=== PATIENT | male | born 1945 | race Caucasian/White ===

== ENCOUNTER 2016-09-26 11:50 | Inpatient (IN) | payer OTHER ==
[2016-09-26 12:02] VITALS: BMI 22.9
[2016-09-26 12:58] LABS: BASOPHIL 1.3 % (0-2.0); EOSINOPHIL 3.6 % (0-4.5); MCH 30.8 pg (25.7-33.7); MCHC 32.5 g/dl (32.0-35.9); MEAN CELL VOLUME 94.7 fl (80-96); MEAN PLT VOLUME 7.8 fl (7.5-11.1); NEUTROPHILS 75.4 % (42.8-82.8); PLATELET COUNT 377 K/MM3 (134-434); RDW 15.7 % (11.9-15.9); WHITE BLOOD COUNT 12.1 K/mm3 (4.0-10.0)
--- NOTE | 2016-09-26 13:09 | PDOC ---
History of Present Illness - General Chief Complaint: Revisit,Radiology Variance Stated Complaint: NEPHROSTOMY TUBE Time Seen by Provider: 09/26/16 11:55 History Source: Patient, Old Records, Other (Dr. Batista) Exam Limitations: No Limitations - History of Present Illness Initial Comments: 09/26/16 13:00 71-year-old male sent over from [facility] secondary to left nephrostomy tube falling out upon awakening this morning. Patient presently with a nephrostomy tube secondary to calculi occluding left ureter pending a stent placement. Patient was admitted here last month for septic shock and was found to have an occluded left ureter requiring nephrostomy placement. Patient has no complaints presently including flank pain, nausea or fever. Patient presently with a Hooks catheter which drained from the right kidney. Timing/Duration: 4-6 hours Associated Symptoms: reports: denies symptoms Past History - Past Medical History Allergies/Adverse Reactions: Allergies Allergy/AdvReac Type Severity Reaction Status Date / Time No Known Allergies Allergy Verified 07/29/16 19:13 Home Medications: Ambulatory Orders Aspirin [Baby Aspirin] 81 mg PO DAILY 11/09/11 Atorvastatin Ca [Lipitor] 20 mg PO HS 11/09/11 Carvedilol [Coreg] 12.5 mg PO BID 11/09/11 Tamsulosin HCl [Flomax -] 0.4 mg PO BID 11/09/11 Finasteride [Proscar -] 5 mg PO DAILY 07/29/16 Tiotropium [place] [Spiriva] 1 inh PO DAILY 07/30/16 Albuterol Sulfate 0.5% [Ventolin 0.5% Nebulizing Soln. -] 1 amp NEB QIDR amp Bacitracin - [Bacitracin Topical Ointment -] 1 applic TP BID #1 applic 08/25/16 Clopidogrel Bisulfate [Plavix -] 75 mg PO ASDIR #0 08/25/16 Docusate Sodium [Colace -] 100 mg PO DAILY capsule 08/25/16 Acetaminophen [Pain Relief] 650 mg PO QID PRN 09/26/16 Clonazepam [Klonopin -] 1 mg PO BID MDD 2mg 09/26/16 Mag Hydrox/Al Hydrox/Simeth [Mylanta *Suspension*] 30 ml PO Q6H PRN 09/26/16 Piperacillin Sodium/Tazobactam [Zosyn 3.375 Gram Vial] 3.375 gm IV ASDIR Anemia: No Asthma: No Cancer: Yes Cardiac Disorders: Yes (lung cancer) CVA: No COPD: No CHF: No Dementia: No Diabetes: No GI Disorders: No Disorders: Yes (TURP 2008) HTN: Yes Hypercholesterolemia: Yes Liver Disease: No Seizures: No Thyroid Disease: Yes (partial throidectomy) - Surgical History Abdominal Surgery: No Appendectomy: No Cardiac Surgery: No Cholecystectomy: No Lung Surgery: Yes Neurologic Surgery: No - Immunization History Td Vaccination: Yes (UNKNOWN) Immunization Up to Date: Yes - Psycho/Social/Smoking Cessation Hx Anxiety: Yes Suicidal Ideation: No Smoking Status: Yes Smoking History: Former smoker Years of Tobacco Use: 40 Have you smoked in the past 12 months: Yes Number of Cigarettes Smoked Daily: 10 If you are a former smoker, when did you quit?: 6 months ago Cigars Per Day: 0 Information on smoking cessation initiated: No 'Breaking Loose' booklet given: 02/17/12 Hx Alcohol Use: No Drug/Substance Use Hx: No Substance Use Type: None Hx Substance Use Treatment: No Patient Lives Alone: No Lives with/in: senior living Review of Systems - Review of Systems Able to Perform ROS?: Yes Constitutional: No: Symptoms Reported HEENTM: No: Symptoms Reported Respiratory: No: Symptoms reported Cardiac (ROS): No: Symptoms Reported ABD/GI: No: Symptoms Reported : Yes: See HPI Musculoskeletal: No: Symptoms Reported Integumentary: No: Symptoms Reported Neurological: No: Symptoms reported Psychiatric: Yes: Anxiety *Physical Exam - Vital Signs Last Vital Signs Temp Pulse Resp BP Pulse Ox 98.1 F 87 18 107/58 96 09/26/16 11:57 09/26/16 11:57 09/26/16 11:57 09/26/16 11:57 09/26/16 11:57 - Physical Exam General Appearance: Yes: Nourished, Appropriately Dressed. No: Apparent Distress HEENT: positive: EOMI, MICHELE, Pharynx Normal (dry) Neck: positive: Supple Respiratory/Chest: positive: Lungs Clear, Normal Breath Sounds. negative: Respiratory Distress, Accessory Muscle Use Cardiovascular: positive: Regular Rhythm, Regular Rate. negative: Murmur Gastrointestinal/Abdominal: positive: Soft. negative: Tenderness Male Genitalia: positive: normal genitalia (hooks in place) Musculoskeletal: positive: Other (noted small opening to left posterior flank area with no active bleeding or drainage. Surrounding skin intact) Extremity: positive: Normal Capillary Refill. negative: Pedal Edema Integumentary: positive: Normal Color, Dry, Warm Neurologic: positive: Normal Mood/Affect ED Treatment Course - LABORATORY CBC & Chemistry Diagram: 09/26/16 12:33 09/26/16 12:33 - ADDITIONAL ORDERS Additional order review: 09/26/16 12:33 RBC 2.80 L MCV 94.7 MCHC 32.5 RDW 15.7 MPV 7.8 Neutrophils % 75.4 Lymphocytes % 8.5 Monocytes % 11.2 H Eosinophils % 3.6 Basophils % 1.3 Medical Decision Making - Medical Decision Making 09/26/16 13:00 Patient with extensive medical history here for evaluation left nephrostomy tube falling out upon awakening this morning. Patient has no complaints at this time. Patient ordered for labs including renal kidney ultrasound and consultation to urology and nephrology. Patient will need to be admitted for either placement of tube versus stent placement. 09/26/16 15:00 Laboratory Tests 09/26/16 09/26/16 09/26/16 12:33 12:33 12:33 WBC 12.1 H Hgb 8.6 L Hct 26.5 L Neutrophils % 75.4 INR 1.17 H Sodium 139 Potassium 4.1 Chloride 100 Carbon Dioxide 30 D Anion Gap 9 BUN 28 H Creatinine 1.3 Creat Clearance w eGFR 54.57 Random Glucose 93 D Calcium 8.8 Total Bilirubin 0.3 D AST 21 ALT 23 D Alkaline Phosphatase 72 D Total Protein 6.2 L Albumin 2.4 L D Urine Protein Urine Blood Urine Nitrite Ur Leukocyte Esterase Urine RBC Urine WBC Blood Type 09/26/16 09/26/16 12:33 12:33 WBC Hgb Hct Neutrophils % INR Sodium Potassium Chloride Carbon Dioxide Anion Gap BUN Creatinine Creat Clearance w eGFR Random Glucose Calcium Total Bilirubin AST ALT Alkaline Phosphatase Total Protein Albumin Urine Protein 2+ H Urine Blood 2+ H Urine Nitrite Negative Ur Leukocyte Esterase 3+ H Urine RBC 20 Urine WBC 120 Blood Type O NEGATIVE urine culture added. an order for ceftriaxone placed for broad spectrum antibiotic coverage secondary to positive urinary tract infection. Ultrasound shows left kidney measuring and normal size. Residual hydronephrosis is no longer present. Multiple nonobstructing calculi are seen mainly in the lower pole. The largest measuring 1.0 cm. Case discussed with Dr. Diaz hospitalist who accepted the patient to [facility] inpatient. Consultations were placed to urology and nephrology for follow-up. 09/26/16 16:22 call placed again to urology. *DC/Admit/Observation/Transfer Diagnosis at time of Disposition: Calculi, ureter UTI (urinary tract infection) Qualifiers: Hematuria presence: with hematuria - Discharge Dispostion Admit: Yes - Referrals Referrals: Marvin Pack MD [Staff Physician] -
[2016-09-26 13:18] LABS: INR 1.17 (0.82-1.09); PROTHROMBIN TIME (PATIENT) 12.9 SEC (9.98-11.88)
[2016-09-26] MEDS ORDERED: clonazePAM 0.5 MG TABLET PO ONE ×2 (13:35→22:14)
[2016-09-26 13:36] LABS: ALBUMIN 2.4 g/dl (3.4-5.0); CALCIUM 8.8 mg/dL (8.5-10.1); CREATININE 1.3 mg/dL (0.7-1.3)
[2016-09-26 13:38] LABS: BILIRUBIN,TOTAL 0.3 mg/dL (0.2-1.0); TOT PROT 6.2 g/dl (6.4-8.2)
[2016-09-26] MEDS ORDERED: clonazePAM 0.5 MG TABLET ONE (13:40)
[2016-09-26 14:04] LABS: URINE APPEARANCE SLCLOUDY; URINE BILIRUBIN NEGATIVE (NEGATIVE); URINE COLOR LTYELLOW; URINE GLUCOSE (UA) NEGATIVE (NEGATIVE); URINE KETONE NEGATIVE (NEGATIVE); URINE NITRITE NEGATIVE (NEGATIVE); URINE UROBILINOGEN NEGATIVE E.U./dl (0.2-1.0)
[2016-09-26 14:24] LABS: URINE BLOOD 2+ (NEGATIVE); URINE LEUK ESTERASE 3+ (NEGATIVE); URINE PROTEIN 2+ (NEGATIVE)
[2016-09-26 14:33] LABS: URINE MUCUS RARE; URINE RBC 20 /hpf (0-3); URINE WBC 120 /hpf (3-5)
[2016-09-26] MEDS ORDERED: CEFTRIAXONE 1 GM in DEXTROSE 5%-WATER - 50 ML IVPB ONE (15:48)
[2016-09-26] MEDS ORDERED: CEFTRIAXONE 50 ML ONE (16:03)
--- NOTE | 2016-09-26 17:10 | HP ---
Admitting History and Physical - Admission Chief Complaint: nephrostomy tube fell out History of Present Illness: HPI: 71 year old male with h/o CAD , s/p stents, HTN, HL , partial thyroidectomy, BPH s/p TURP recently discharged following admission for septic shock from pneumoperitoneum and obstructive uropathy s/p ex lap and duodenal ulcer repair on 07/30/16 followed by acute cholecystitis and L lung atelectasis and MICHELA on CKD. He was brought to the ED from [facility] because his left nephrostomy tube fell out this morning. His nephrostomy tube was placed from previous admission d/t obstructing calculi occluding left ureter, pending internal stent placement. 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 He was to follow up with outside urologist however has not. At present patient denies abd pain, swelling, nausea, vomiting, difficulty breathing, fever, chills, flank pain. He does states he cannot walk, he requires close guarded help and a walker. ED course: 1. Renal US: left kidney measuring and normal size. Residual hydronephrosis is no longer present. Multiple non obstructing calculi are seen mainly in the lower pole. The largest measuring 1.0 cm. 2. + UA, urine culture ordered 3. Ceftriaxone given History Source: Patient, Medical Record Limitations to Obtaining History: No Limitations - Past Medical History Cardiovascular: Yes: CAD, HTN, Hyperlipdemia Pulmonary: Yes: Previously Intubated (07/1016) Hepatobiliary: Yes: Cholecystitis Renal/: Yes: BPH, Renal Calculi, Other (Prostate cancer) Heme/Onc: Yes: Cancer ENT: Yes: Other - Past Surgical History Additional Past Surgical History: supra pubic catheter, L nephrostomy tube - Smoking History Smoking history: Former smoker Have you smoked in the past 12 months: Yes Aproximately how many cigarettes per day: 10 If you are a former smoker, when did you quit?: 6 months ago - Alcohol/Substance Use Hx Alcohol Use: No - Social History History of Recent Travel: No Home Medications - Allergies Allergies/Adverse Reactions: Allergies Allergy/AdvReac Type Severity Reaction Status Date / Time No Known Allergies Allergy Verified 07/29/16 19:13 - Home Medications Home Medications: Ambulatory Orders Aspirin [Baby Aspirin] 81 mg PO DAILY 11/09/11 Atorvastatin Ca [Lipitor] 20 mg PO HS 11/09/11 Carvedilol [Coreg] 12.5 mg PO BID 11/09/11 Tamsulosin HCl [Flomax -] 0.4 mg PO BID 11/09/11 Finasteride [Proscar -] 5 mg PO DAILY 07/29/16 Tiotropium [place] [Spiriva] 1 inh PO DAILY 07/30/16 Albuterol Sulfate 0.5% [Ventolin 0.5% Nebulizing Soln. -] 1 amp NEB QIDR amp Bacitracin - [Bacitracin Topical Ointment -] 1 applic TP BID #1 applic 08/25/16 Clopidogrel Bisulfate [Plavix -] 75 mg PO ASDIR #0 08/25/16 Docusate Sodium [Colace -] 100 mg PO DAILY capsule 08/25/16 Acetaminophen [Pain Relief] 650 mg PO QID PRN 09/26/16 Clonazepam [Klonopin -] 1 mg PO BID MDD 2mg 09/26/16 Mag Hydrox/Al Hydrox/Simeth [Mylanta *Suspension*] 30 ml PO Q6H PRN 09/26/16 Piperacillin Sodium/Tazobactam [Zosyn 3.375 Gram Vial] 3.375 gm IV ASDIR Review of Systems - Review of Systems Constitutional: reports: No Symptoms Eyes: reports: No Symptoms HENT: reports: No Symptoms Neck: reports: No Symptoms Cardiovascular: reports: No Symptoms Respiratory: reports: No Symptoms Gastrointestinal: reports: No Symptoms Genitourinary: reports: No Symptoms Musculoskeletal: reports: Muscle Weakness Integumentary: reports: No Symptoms Neurological: reports: No Symptoms Endocrine: reports: No Symptoms Hematology/Lymphatic: reports: No Symptoms Physical Examination Vital Signs: Vital Signs Temperature 98.1 F 09/26/16 11:57 Pulse Rate 87 09/26/16 11:57 Respiratory Rate 18 09/26/16 11:57 Blood Pressure 107/58 09/26/16 11:57 O2 Sat by Pulse Oximetry (%) 96 09/26/16 11:57 Constitutional: Yes: Anxious (mild) Eyes: Yes: Conjunctiva Clear HENT: Yes: WNL Neck: Yes: WNL Cardiovascular: Yes: Regular Rate and Rhythm, S1, S2 Respiratory: Yes: Diminished (bi basialr crackles, L lobe diminished), On Nasal O2 Gastrointestinal: Yes: Normal Bowel Sounds, Soft Renal/: Yes: Other (supra pubic cathether, yellow clear urine) Musculoskeletal: Yes: Muscle Weakness (lower extremeities) Edema: No Peripheral Pulses WNL: Yes Wound/Incision: Yes: Dressing Dry and Intact (L flank) Neurological: Yes: Alert, Oriented, Cran Nerves II-XII Intact ...Motor Strength: LUE, RUE Psychiatric: Yes: Alert, Oriented Labs: CBC, BMP 09/26/16 12:33 09/26/16 12:33 Imaging - Results Chest X-ray: Report Reviewed (better LOGAN, slight decrease of shift of the heart and mediastinal structure, persistent, LLL consolidation/airspace disease with left pleural effusion), Image Reviewed Ultrasound: Report Reviewed Assessment/Plan Assessment: 71 year old male admitted s/p left nephrostomy tube falling out and incidental UTI finding. Plan: 1. Nephrolithiasis - Urology consult for stent placement 2. UTI - Follow urine cx - Continue ceftriaxone 3. Nephrostomy tube malfunction - Renal shows L hydro resolution - PT is making urine - Awaiting urology input 4. Renal insufficiency/CKD - Last week cr 1.6, today 1.3 - Fluids as needed - D/w case with renal, appreciated, will see 5. CAD s/p [place] in 2006 - No hx of stents - Stress test in 01/2012 normal - Hold ASA and Plavix 75mg MWF will defer to cardiology to restart - Cardiology consult for risk, Dr. Allen 6. HTN - Continue Coreg 12.5 BID 7. Left lung atelectasis - CXR reviewed, currently no resp compromise, mildly improved from previous admission - Incentive spirometry Visit type - Emergency Visit Emergency Visit: Yes ED Registration Date: 09/26/16 Care time: The patient presented to the Emergency Department on the above date and was hospitalized for further evaluation of their emergent condition. - New Patient This patient is new to me today: Yes Date on this admission: 09/27/16 - Critical Care Critical Care patient: No
[2016-09-26] MEDS ORDERED: MAG HYDROX/AL HYDROX/SIMETH 30 ML UNIT-DOSE CUP PO PRN (18:06)
--- NOTE | 2016-09-26 19:48 | CONSULT ---
Consult Consult Specialty:: Nephrology Reason for Consultation:: CKD with recent history of MICHELA and urinary obstruction - History of Present Illness Chief Complaint: nephrostomy tube fell out History of Present Illness: Pt is a 71 year old male with pmhx of MICHELA and urinary obstruction who was sent in from [facility] for dislodged left nephrostomy tube. Pt has history of left uretral stone which caused obstruction. He had a nephrostomy placed and was supposed to go to urology to have the stone removed an internal stent placed. He also has a chronic hooks for obstruction as well. He is currently on abx for a UTI. I was called to evaluate him for CKD. I did see him while he was in the [place] a few weeks and and his renal function had been improving. - History Source History Provided By: Patient, Medical Record - Past Medical History Cardio/Vascular: Yes: CAD, HTN, Hyperlipdemia Pulmonary: Yes: Previously Intubated (07/1016) Hepatobiliary: Yes: Cholecystitis Renal/: Yes: BPH, Renal Calculi, Other (Prostate cancer) ENT: Yes: Other - Past Surgical History Past Surgical History: Yes: Cholecystectomy - Alcohol/Substance Use Hx Alcohol Use: No - Smoking History Smoking history: Former smoker Have you smoked in the past 12 months: Yes Aproximately how many cigarettes per day: 10 If you are a former smoker, when did you quit?: 6 months ago - Social History Usual Living Arrangement: With Significant Other History of Recent Travel: No Home Medications - Allergies Allergies/Adverse Reactions: Allergies Allergy/AdvReac Type Severity Reaction Status Date / Time No Known Allergies Allergy Verified 07/29/16 19:13 - Home Medications Home Medications: Ambulatory Orders Aspirin [Baby Aspirin] 81 mg PO DAILY 11/09/11 Atorvastatin Ca [Lipitor] 20 mg PO HS 11/09/11 Carvedilol [Coreg] 12.5 mg PO BID 11/09/11 Tamsulosin HCl [Flomax -] 0.4 mg PO BID 11/09/11 Finasteride [Proscar -] 5 mg PO DAILY 07/29/16 Tiotropium [place] [Spiriva] 1 inh PO DAILY 07/30/16 Albuterol Sulfate 0.5% [Ventolin 0.5% Nebulizing Soln. -] 1 amp NEB QIDR amp Bacitracin - [Bacitracin Topical Ointment -] 1 applic TP BID #1 applic 08/25/16 Clopidogrel Bisulfate [Plavix -] 75 mg PO ASDIR #0 08/25/16 Docusate Sodium [Colace -] 100 mg PO DAILY capsule 08/25/16 Acetaminophen [Pain Relief] 650 mg PO QID PRN 09/26/16 Clonazepam [Klonopin -] 1 mg PO BID MDD 2mg 09/26/16 Mag Hydrox/Al Hydrox/Simeth [Mylanta *Suspension*] 30 ml PO Q6H PRN 09/26/16 Piperacillin Sodium/Tazobactam [Zosyn 3.375 Gram Vial] 3.375 gm IV ASDIR Family Disease History - Family Disease History Family History: Denies Review of Systems - Review of Systems Constitutional: reports: No Symptoms Eyes: reports: No Symptoms HENT: reports: No Symptoms Neck: reports: No Symptoms Cardiovascular: reports: No Symptoms Respiratory: reports: No Symptoms Gastrointestinal: reports: No Symptoms Genitourinary: reports: Other (hooks) Musculoskeletal: reports: No Symptoms Integumentary: reports: No Symptoms Neurological: reports: No Symptoms Endocrine: reports: No Symptoms Hematology/Lymphatic: reports: No Symptoms Physical Exam Vital Signs: Vital Signs Temperature 98.7 F 09/26/16 19:26 Pulse Rate 94 H 09/26/16 19:26 Respiratory Rate 20 09/26/16 19:26 Blood Pressure 117/60 09/26/16 19:26 O2 Sat by Pulse Oximetry (%) 96 09/26/16 18:30 Constitutional: Yes: Calm Eyes: Yes: Conjunctiva Clear HENT: Yes: Atraumatic Neck: Yes: Supple Cardiovascular: Yes: S1, S2 Respiratory: Yes: Other (decreased left lung sounds) Gastrointestinal: Yes: Soft Renal/: Yes: Hooks Present Musculoskeletal: Yes: WNL Edema: No Neurological: Yes: Oriented Psychiatric: Yes: Oriented Labs: Laboratory Tests 08/22/16 08/23/16 08/24/16 06:00 07:10 06:30 WBC Hgb Creatinine 1.6 H 1.6 H 1.5 H Urine Color Urine Appearance Urine pH Urine Protein Urine Glucose (UA) Urine Blood Urine Nitrite Urine Bilirubin Urine Urobilinogen Ur Leukocyte Esterase Urine RBC Urine WBC 08/25/16 09/26/16 09/26/16 07:00 12:33 12:33 WBC 12.1 H Hgb 8.6 L Creatinine 1.5 H 1.3 Urine Color Urine Appearance Urine pH Urine Protein Urine Glucose (UA) Urine Blood Urine Nitrite Urine Bilirubin Urine Urobilinogen Ur Leukocyte Esterase Urine RBC Urine WBC 09/26/16 12:33 WBC Hgb Creatinine Urine Color Ltyellow Urine Appearance Slcloudy Urine pH 6.0 Urine Protein 2+ H Urine Glucose (UA) Negative Urine Blood 2+ H Urine Nitrite Negative Urine Bilirubin Negative Urine Urobilinogen Negative Ur Leukocyte Esterase 3+ H Urine RBC 20 Urine WBC 120 Imaging - Results Chest X-ray: Report Reviewed Ultrasound: Report Reviewed Problem List - Problems (1) Calculi, ureter Code(s): N20.1 - CALCULUS OF URETER (2) UTI (urinary tract infection) Code(s): N39.0 - URINARY TRACT INFECTION, SITE NOT SPECIFIED Qualifiers: Hematuria presence: with hematuria (3) Atelectasis of left lung Code(s): J98.11 - ATELECTASIS (4) CAD (coronary artery disease) Code(s): I25.10 - ATHSCL HEART DISEASE OF [place] CORONARY ARTERY W/O ANG PCTRS (5) CKD (chronic kidney disease) Code(s): N18.9 - CHRONIC KIDNEY DISEASE, UNSPECIFIED (6) HTN (hypertension) Code(s): I10 - ESSENTIAL (PRIMARY) HYPERTENSION Assessment/Plan Current Medications Generic Name Dose Route Start Last Admin Trade Name Freq PRN Reason Stop Dose Admin Aclidinium [place] 1 puff 09/26/16 22:00 Tudorza - IH BID NASIR Al Hydroxide/Mg Hydroxide 30 ml 09/26/16 18:06 Mylanta Oral Suspension - PO Q6H PRN PAIN Atorvastatin Calcium 20 mg 09/26/16 22:00 Lipitor - PO HS NASIR Carvedilol 12.5 mg 09/26/16 22:00 Coreg - PO BID NASIR Clonazepam 1 mg 09/27/16 10:00 Klonopin - PO BID NASIR Clopidogrel Bisulfate 75 mg 09/27/16 10:00 Plavix - PO MoWeFr@1000 NASIR Finasteride 5 mg 09/27/16 10:00 Proscar - PO DAILY NASIR Heparin Sodium (Porcine) 5,000 unit 09/26/16 22:00 Heparin - SQ TID NASIR Tamsulosin HCl 0.4 mg 09/26/16 22:00 Flomax - PO BID NASIR Impression 1. CKD 2. dislodged nephrostomy tube 3. HTN 4. CAD 5. nephrolithiasis 6. left hydro 7. perforated viscous on last admission 8. UTI Plan - renal function is actually improved - urology consult for cystoscopy and stent - cardiology eval for risk stratification - monitor lorie - send urine cultures - pt was on abx for UTI in [place] Dr Batista
[2016-09-26] MEDS: TAMSULOSIN HCL 0.4 MG CAP.ER.24H (FP) PO SCH (21:55)
[2016-09-26] MEDS: CARVEDILOL 12.5 MG TABLET (FP) PO SCH (21:55)
[2016-09-26] MEDS: HEPARIN NA (PORCINE) 5,000 UNITS/ML 1ML VIAL SQ SCH (21:55)
[2016-09-26] MEDS: ATORVASTATIN CA 20 MG TABLET (FP) PO SCH (21:56)
[2016-09-26] MEDS: ACLIDINIUM BROMIDE 400 MCG/INH AERO.POWD IH SCH (21:57)
--- NOTE | 2016-09-26 23:13 | EKG ---
Test Reason : Blood Pressure : / mmHG Vent. Rate : 080 BPM Atrial Rate : 080 BPM P-R Int : 182 ms QRS Dur : 094 ms QT Int : 382 ms P-R-T Axes : 075 -08 051 degrees QTc Int : 440 ms NORMAL SINUS RHYTHM NORMAL ECG WHEN COMPARED WITH ECG OF 30-JUL-2016 02:39, T WAVE VARIATION Confirmed by RAMIRO MIMS MD ([id number]) on 09/26/2016 11:13:32 PM Referred By: Confirmed By:RAMIRO MIMS MD
[2016-09-27] MEDS: HEPARIN NA (PORCINE) 5,000 UNITS/ML 1ML VIAL SQ SCH ×3 (05:12→22:17)
[2016-09-27 07:31] LABS: EOSINOPHIL 5.3 % (0-4.5); MCH 31.2 pg (25.7-33.7); MCHC 32.6 g/dl (32.0-35.9); MEAN CELL VOLUME 95.6 fl (80-96); MEAN PLT VOLUME 8.1 fl (7.5-11.1); NEUTROPHILS 61.1 % (42.8-82.8); PLATELET COUNT 388 K/MM3 (134-434); WHITE BLOOD COUNT 8.1 K/mm3 (4.0-10.0)
[2016-09-27 08:11] LABS: ALBUMIN 2.3 g/dl (3.4-5.0); BILIRUBIN,TOTAL 0.3 mg/dL (0.2-1.0); CALCIUM 9.1 mg/dL (8.5-10.1); CREATININE 1.4 mg/dL (0.7-1.3)
[2016-09-27] MEDS ORDERED: PT OWN MED DRAWER 7, Y5N ONE (08:48)
[2016-09-27] MEDS: TAMSULOSIN HCL 0.4 MG CAP.ER.24H (FP) PO SCH ×2 (09:23→22:17)
[2016-09-27] MEDS: CARVEDILOL 12.5 MG TABLET (FP) PO SCH (09:23)
[2016-09-27] MEDS: clonazePAM 0.5 MG TABLET PO SCH ×2 (09:23→22:17)
[2016-09-27] MEDS: FINASTERIDE 5 MG TABLET (FP) PO SCH (09:24)
[2016-09-27] MEDS: ACLIDINIUM BROMIDE 400 MCG/INH AERO.POWD IH SCH ×2 (09:25→22:18)
[2016-09-27] MEDS ORDERED: CLOPIDOGREL BISULFATE 75 MG TABLET (FP) PO SCH (10:00)
[2016-09-27] MEDS ORDERED: CEFTRIAXONE 1 GM in DEXTROSE 5%-WATER - 50 ML IVPB SCH (10:00)
[2016-09-27] MEDS ORDERED: cefTRIAXone 1 GM/50 ML BAG (PRE-DOCKED) IVPB SCH (10:00)
--- NOTE | 2016-09-27 12:53 | CON.CARD ---
Consult Consult Specialty:: Cardiology Referred by:: Sailaja Wakefield NP Reason for Consultation:: Pre-operative cardiac evaluation - History of Present Illness Chief Complaint: "Left nephrostomy tube fell out" History of Present Illness: 71 yo male with CAD, NSTEMI 2006 (no cardiac cath or stents due to renal failure ), CKD, HTN, and COPD, who was recently hospitalized from -08/25/16 with septic shock from pneumoperitoneum and obstructive uropathy. During that hospitalization he underwent left nephrostomy, in addition to ex lap and duodenal ulcer repair on 07/30/16. Hospital course was complicated by acute cholecystitis and underwent cholecystectomy. He was ultimately discharged to [facility]. However, patient was admitted on 09/26 due to displacement of his left nephrostomy tube. Cardiology consult was requested for pre-operative cardiac evaluation for possible urologic procedure. Patient denies chest pain or dyspnea. He does report that his BP was running low ( sometimes SBP 90s) [facility] and his carvedilol was being adjusted. - History Source History Provided By: Patient, Medical Record Limitations to Obtaining History: No Limitations - Past Medical History Cardio/Vascular: Yes: CAD (prior NSTEMI 2006 -> no cardiac cath or PCI at that time due to CKD), HTN, Hyperlipdemia Pulmonary: Yes: Cancer (H/O lung cancer s/p resection in [place] [facility] [place] COPD, Previously Intubated (07/2016) Hepatobiliary: Yes: Cholecystitis Renal/: Yes: Renal Failure, BPH, Renal Calculi, Other (Prostate cancer) - Past Surgical History Past Surgical History: Yes: Cholecystectomy, TURP Additional Surgical History: Lung cancer resection 1996, thryoidectomy 2010 -> benign mass - Alcohol/Substance Use Hx Alcohol Use: No History of Substance Use: reports: None - Smoking History Smoking history: Former smoker Have you smoked in the past 12 months: Yes Aproximately how many cigarettes per day: 10 If you are a former smoker, when did you quit?: 6 months ago - Social History Usual Living Arrangement: With Significant Other History of Recent Travel: No Home Medications - Allergies Allergies/Adverse Reactions: Allergies Allergy/AdvReac Type Severity Reaction Status Date / Time No Known Allergies Allergy Verified 07/29/16 19:13 - Home Medications Home Medications: Ambulatory Orders Aspirin [Baby Aspirin] 81 mg PO DAILY 11/09/11 Atorvastatin Ca [Lipitor] 20 mg PO HS 11/09/11 Carvedilol [Coreg] 12.5 mg PO BID 11/09/11 Tamsulosin HCl [Flomax -] 0.4 mg PO BID 11/09/11 Finasteride [Proscar -] 5 mg PO DAILY 07/29/16 Tiotropium [place] [Spiriva] 1 inh PO DAILY 07/30/16 Albuterol Sulfate 0.5% [Ventolin 0.5% Nebulizing Soln. -] 1 amp NEB QIDR amp Bacitracin - [Bacitracin Topical Ointment -] 1 applic TP BID #1 applic 08/25/16 Clopidogrel Bisulfate [Plavix -] 75 mg PO ASDIR #0 08/25/16 Docusate Sodium [Colace -] 100 mg PO DAILY capsule 08/25/16 Acetaminophen [Pain Relief] 650 mg PO QID PRN 09/26/16 Clonazepam [Klonopin -] 1 mg PO BID MDD 2mg 09/26/16 Mag Hydrox/Al Hydrox/Simeth [Mylanta *Suspension*] 30 ml PO Q6H PRN 09/26/16 Piperacillin Sodium/Tazobactam [Zosyn 3.375 Gram Vial] 3.375 gm IV ASDIR Family Disease History - Family Disease History Family Disease History: Other: Father ( from CVA at age 70) Review of Systems - Review of Systems Constitutional: reports: No Symptoms Eyes: reports: No Symptoms HENT: reports: No Symptoms Cardiovascular: denies: Chest Pain, Edema, Palpitations, Shortness of Breath Respiratory: reports: No Symptoms Gastrointestinal: reports: No Symptoms Neurological: reports: Unsteady Gait, Weakness (lower extremities (due to physical deconditioning from prolonged hospitalization)) Vital Signs: Vital Signs Temperature 97.7 F 09/27/16 09:00 Pulse Rate 82 09/27/16 09:00 Respiratory Rate 20 09/27/16 09:00 Blood Pressure 107/53 09/27/16 09:00 O2 Sat by Pulse Oximetry (%) 95 09/27/16 09:00 Constitutional: Yes: No Distress Eyes: Yes: Conjunctiva Clear, EOM Intact HENT: Yes: Atraumatic, Normocephalic Respiratory: Yes: CTA Bilaterally Gastrointestinal: Yes: Normal Bowel Sounds, Soft. No: Tenderness Cardiovascular: Yes: Regular Rate and Rhythm JVD: No Carotid Bruit: No PMI: Non-Displaced Heart Sounds: Yes: S1, S2 Murmur: No: Systolic Murmur Edema: No Peripheral Pulses WNL: Yes Neurological: Yes: Alert, Oriented, Cran Nerves II-XII Intact Psychiatric: Yes: WNL - Other Data Labs, Other Data: CBC, BMP 09/27/16 05:52 09/27/16 05:52 INR, PTT INR 1.17 (0.82-1.09) H 09/26/16 12:33 09/26/16 ECG: Sinus rhythm, rate 80 bpm Echo: Report Reviewed (08/24/16 Echo: Normal LV size and systolic function. Trace TR.) Imaging - Results Chest X-ray: Report Reviewed (09/26/16), Image Reviewed Assessment/Plan 71 yo male with CAD, NSTEMI 2006 (no cardiac cath or stents due to renal failure ), CKD, HTN, and COPD, who was recently hospitalized from -08/25/16 with septic shock from pneumoperitoneum -> repair of perforated viscus, acute cholecystitis -> cholecystectomy, and obstructive uropathy -> left nephrostomy. [facility] due to [facility] of his left nephrostomy tube. Cardiology consult was requested for pre-operative cardiac evaluation for possible urologic procedure. 08/24/16 Echo: Normal LV size and systolic function. Trace TR. 09/26/16 ECG demonstrates sinus rhythm. Patient without symptoms to suggest acute cardiac issues. RECS: Patient does not have any cardiac contraindications to surgery. Patient may proceed with urologic procedure/surgery (if clinically indicated) with acceptable cardiac risk and without further cardiac work-up or intervention. Patient's clopidogrel has been discontinued. Will resume aspirin and Plavix in future if no further invasive procedures are indicated. Will discontinue carvedilol given reported episodes of hypotension at [facility] , and replace it with metoprolol succinate 25 mg po daily. Will continue to monitor BP and uptitrate meds as needed. Will follow. Call with questions.
[2016-09-27] MEDS ORDERED: CEFEPIME HCL 1 GM VIAL (RESTRICTED TO ID) IVPB SCH (13:00)
--- NOTE | 2016-09-27 13:40 | PN ---
Progress Note, Physician History of Present Illness: Pt seen and examined at bedside. He is awake and alert. - Current Medication List Current Medications: Active Medications Aclidinium [place] (Tudorza -) 1 puff IH BID [facility] Last Admin: 09/27/16 09:25 Dose: 1 puff Al Hydroxide/Mg Hydroxide (Mylanta Oral Suspension -) 30 ml PO Q6H PRN PRN Reason: PAIN Atorvastatin Calcium (Lipitor -) 20 mg PO HS [facility] Last Admin: 09/26/16 21:56 Dose: Not Given Clonazepam (Klonopin -) 1 mg PO BID [facility] Last Admin: 09/27/16 09:23 Dose: 1 mg Finasteride (Proscar -) 5 mg PO DAILY [facility] Last Admin: 09/27/16 09:24 Dose: 5 mg Heparin Sodium (Porcine) (Heparin -) 5,000 unit SQ TID [facility] Last Admin: 09/27/16 05:12 Dose: 5,000 unit Cefepime HCl 1 gm/ Dextrose 100 mls @ 200 mls/hr IVPB BID [facility] Metoprolol Succinate (Toprol Xl -) 25 mg PO DAILY [facility] Tamsulosin HCl (Flomax -) 0.4 mg PO BID [facility] Last Admin: 09/27/16 09:23 Dose: 0.4 mg - Objective Vital Signs: Vital Signs Temperature 97.7 F 09/27/16 09:00 Pulse Rate 82 09/27/16 09:00 Respiratory Rate 20 09/27/16 09:00 Blood Pressure 107/53 09/27/16 09:00 O2 Sat by Pulse Oximetry (%) 95 09/27/16 09:00 Constitutional: Yes: Calm Eyes: Yes: Conjunctiva Clear HENT: Yes: Atraumatic Cardiovascular: Yes: S1, S2 Respiratory: Yes: On Nasal O2 Gastrointestinal: Yes: Soft Genitourinary: Yes: Shaw Present Musculoskeletal: Yes: Muscle Weakness Edema: No Neurological: Yes: Oriented Psychiatric: Yes: Oriented Labs: CBC, BMP 09/27/16 05:52 09/27/16 05:52 INR, PTT INR 1.17 (0.82-1.09) H 09/26/16 12:33 Problem List - Problems (1) Calculi, ureter Code(s): N20.1 - CALCULUS OF URETER (2) UTI (urinary tract infection) Code(s): N39.0 - URINARY TRACT INFECTION, SITE NOT SPECIFIED (3) Atelectasis of left lung Code(s): J98.11 - ATELECTASIS (4) CAD (coronary artery disease) Code(s): I25.10 - ATHSCL HEART DISEASE OF [place] CORONARY ARTERY W/O ANG PCTRS (5) CKD (chronic kidney disease) Code(s): N18.9 - CHRONIC KIDNEY DISEASE, UNSPECIFIED (6) HTN (hypertension) Code(s): I10 - ESSENTIAL (PRIMARY) HYPERTENSION Assessment/Plan Current Medications Generic Name Dose Route Start Last Admin Trade Name Freq PRN Reason Stop Dose Admin Aclidinium [place]lo 1 puff 09/26/16 22:00 09/27/16 09:25 Tudorza - IH 1 puff BID NASIR Administration Al Hydroxide/Mg Hydroxide 30 ml 09/26/16 18:06 Mylanta Oral Suspension - PO Q6H PRN PAIN Atorvastatin Calcium 20 mg 09/26/16 22:00 09/26/16 21:56 Lipitor - PO Not Given HS NASIR Clonazepam 1 mg 09/27/16 10:00 09/27/16 09:23 Klonopin - PO 1 mg BID NASIR Administration Finasteride 5 mg 09/27/16 10:00 09/27/16 09:24 Proscar - PO 5 mg DAILY NASIR Administration Heparin Sodium (Porcine) 5,000 unit 09/26/16 22:00 09/27/16 05:12 Heparin - SQ 5,000 unit TID NASIR Administration Cefepime HCl 1 gm/ Dextrose 100 mls @ 200 mls/hr 09/27/16 22:00 IVPB BID NASIR Metoprolol Succinate 25 mg 09/27/16 13:30 Toprol Xl - PO DAILY NASIR Tamsulosin HCl 0.4 mg 09/26/16 22:00 09/27/16 09:23 Flomax - PO 0.4 mg BID NASIR Administration Impression 1. CKD 2. dislodged nephrostomy tube 3. HTN 4. CAD 5. nephrolithiasis 6. left hydro 7. perforated viscous on last admission 8. UTI Plan - cont abx - monitor renal function - urology consult for cystoscopy and stent - send urine cultures - will follow PRN Dr Batista
--- NOTE | 2016-09-27 14:29 | CON.GU ---
Consult Consult Specialty:: Urology Referred by:: Emily Reason for Consultation:: dislodged L nephrostomy - History of Present Illness Chief Complaint: dislodged L nephrostomy History of Present Illness: 71 yo m w multiple medical problems, adm 09/26/16 after L nephrostomy became dislodged at [facility] on the morning of admission. He underwent L percutanous nephrostomy 07/2016 for 1 cm obstructing L UPJ calculus and L hydronephrosis. He also had SPT inserted now has a hooks. He was to f/u w his urologist at [facility], David Garcia but he has not yet seen him. cons req. He denies any L flank pain or hematuria. - History Source History Provided By: Patient, Medical Record Limitations to Obtaining History: No Limitations - Past Medical History Cardio/Vascular: Yes: CAD (prior NSTEMI 2006 -> no cardiac cath or PCI at that time due to CKD), HTN, Hyperlipdemia Pulmonary: Yes: Cancer (H/O lung cancer s/p resection in 1996 at [facility] [place]), COPD, Previously Intubated (07/2016) Hepatobiliary: Yes: Cholecystitis Renal/: Yes: Renal Failure, BPH, Renal Calculi, Other (Prostate cancer) ENT: Yes: Other - Past Surgical History Past Surgical History: Yes: Cholecystectomy, TURP Additional Surgical History: Lung cancer resection 1996, thryoidectomy 2010 -> benign mass - Alcohol/Substance Use Hx Alcohol Use: No History of Substance Use: reports: None - Smoking History Smoking history: Former smoker Have you smoked in the past 12 months: Yes Aproximately how many cigarettes per day: 10 If you are a former smoker, when did you quit?: 6 months ago - Social History Usual Living Arrangement: With Significant Other History of Recent Travel: No Home Medications - Allergies Allergies/Adverse Reactions: Allergies Allergy/AdvReac Type Severity Reaction Status Date / Time No Known Allergies Allergy Verified 07/29/16 19:13 - Home Medications Home Medications: Ambulatory Orders Aspirin [Baby Aspirin] 81 mg PO DAILY 11/09/11 Atorvastatin Ca [Lipitor] 20 mg PO HS 11/09/11 Carvedilol [Coreg] 12.5 mg PO BID 11/09/11 Tamsulosin HCl [Flomax -] 0.4 mg PO BID 11/09/11 Finasteride [Proscar -] 5 mg PO DAILY 07/29/16 Tiotropium [place] [Spiriva] 1 inh PO DAILY 07/30/16 Albuterol Sulfate 0.5% [Ventolin 0.5% Nebulizing Soln. -] 1 amp NEB QIDR amp Bacitracin - [Bacitracin Topical Ointment -] 1 applic TP BID #1 applic 08/25/16 Clopidogrel Bisulfate [Plavix -] 75 mg PO ASDIR #0 08/25/16 Docusate Sodium [Colace -] 100 mg PO DAILY capsule 08/25/16 Acetaminophen [Pain Relief] 650 mg PO QID PRN 09/26/16 Clonazepam [Klonopin -] 1 mg PO BID MDD 2mg 09/26/16 Mag Hydrox/Al Hydrox/Simeth [Mylanta *Suspension*] 30 ml PO Q6H PRN 09/26/16 Piperacillin Sodium/Tazobactam [Zosyn 3.375 Gram Vial] 3.375 gm IV ASDIR Family Disease History - Family Disease History Family Disease History: Other: Father ( from CVA at age 70) Physical Exam- Vital Signs: Vital Signs Temperature 98.2 F 09/27/16 13:56 Pulse Rate 77 09/27/16 13:56 Respiratory Rate 20 09/27/16 13:56 Blood Pressure 105/54 09/27/16 13:56 O2 Sat by Pulse Oximetry (%) 95 09/27/16 09:00 Constitutional: Yes: Well Nourished, No Distress, Calm Gastrointestinal: Yes: WNL, Normal Bowel Sounds, Soft Renal/: Yes: Hooks Present (L nephrotomy site clean and dry) Testicles: Yes: WNL Scrotum: Yes: WNL Penis: Yes: WNL Prostate Exam: Yes: Deferred Labs: CBC, BMP 09/27/16 05:52 09/27/16 05:52 Imaging - Results Ultrasound: Report Reviewed Assessment/Plan Imp: dislodged L nephrostomy tube, non-obstructing L renal calculi, hx of 1 cm obstructing L UPJ calculus, atrophic R kidney Rec: CT abd pelvis non contrast, he may need cystoscopy and LULL and JJ stent insertion if he is still obstructed. Otherwise f/u w Dr. Garcia for ESWL L.
--- NOTE | 2016-09-27 14:49 | PN ---
Progress Note (short form) - Note Progress Note: PULMONARY CONSULTATION DICTATED 09/27/16 IMP COPD LEFT LUNG ATELECTASIS IMPROVING DISLODGED NEPHROSTOMY TUBE RENAL CALCULI UTI RECENT RESPIRATORY FAILURE SECONDARY TO SEPTIC SHOCK ASHD H/O TOBACCO ABUSE LEFT HYDRO PLAN INHALED BRONCHODILATORS NASAL O2 CHEST PT ANTIBIOTICS W/U Problem List - Problems (1) Calculi, ureter Code(s): N20.1 - CALCULUS OF URETER (2) UTI (urinary tract infection) Code(s): N39.0 - URINARY TRACT INFECTION, SITE NOT SPECIFIED Qualifiers: Hematuria presence: with hematuria (3) Atelectasis of left lung Code(s): J98.11 - ATELECTASIS (4) Obstructive uropathy Code(s): N13.9 - OBSTRUCTIVE AND REFLUX UROPATHY, UNSPECIFIED (5) CAD (coronary artery disease) Code(s): I25.10 - ATHSCL HEART DISEASE OF [place] CORONARY ARTERY W/O ANG PCTRS (6) HTN (hypertension) Code(s): I10 - ESSENTIAL (PRIMARY) HYPERTENSION (7) COPD (chronic obstructive pulmonary disease) Code(s): J44.9 - CHRONIC OBSTRUCTIVE PULMONARY DISEASE, UNSPECIFIED
--- NOTE | 2016-09-27 15:06 | PN ---
Progress Note (short form) - Note Progress Note: ID consult dictated imp/reccd 71 year old man s/p recent admission to [facility]- septic shock with perforated DU with maeve patch, MRSA bacteremia, MICHELA- nephrolithiasis requiring stent and SPT, s/p cholycystotomy, s/p recurrent atelectasis of left lung requiring bronch doing well at [facility]- walking and climbing stairs! sent to ED after PCN tube fell out no fevers or chills no flank pain cholycystotomy tube was removed by surgeon SPT was changed to chronic hooks 3 weeks ago ua is positive and urine culture is growing presumptive pseudomonas- there is a good chance he will need cystoscopy so will start cefepime and f/u cultures ct scan has been ordered by urology d/w urology uti nephrolithiasis chronic atelectasis left lung chronic hooks? Problem List - Problems (1) UTI (urinary tract infection) Code(s): N39.0 - URINARY TRACT INFECTION, SITE NOT SPECIFIED Qualifiers: Hematuria presence: with hematuria (2) Nephrolithiasis Code(s): N20.0 - CALCULUS OF KIDNEY (3) Atelectasis of left lung Code(s): J98.11 - ATELECTASIS (4) Hooks catheter in place prior to arrival Code(s): [id number] -
--- NOTE | 2016-09-27 16:29 | CONS ---
DATE OF CONSULTATION: DATE OF DICTATION: 09/27/2016 REQUESTED BY: Hospitalist service This is a 71-year-old man who had a prolonged admission recently, July 29 to August 25, when he presented in septic shock. He ultimately was found to have pneumoperitoneum and had a perforated duodenal ulcer that required a Jayme patch. He was noted to be in acute renal failure and he had a left-sided nephrostomy tube placed as he had nephrolithiasis and he also had a suprapubic tube placed, as a Shaw could not be placed. His acute renal failure slowly improved. He was in respiratory failure as well. He developed abnormal LFTs and had a cholecystotomy tube placed for possible cholecystitis. He ultimately had recurrent atelectasis of his left lung, it happened multiple times, and he ultimately had a bronchoscopy. He was discharged to the half-way on the . At the half-way, he went for followup with Surgery, who removed the cholecystotomy tube. He was seen by Urology, who 3 weeks ago replaced the suprapubic tube with a Shaw catheter. He is now admitted because his percutaneous nephrostomy fell out. He was in the process of having outpatient laser lithotripsy set up for a stone removal, but prior to that, the tube fell out. He denies any fevers or chills, nausea, vomiting, diarrhea. He has gained weight. He is ambulating at the half-way and is starting to climb steps. His past medical history is notable for hypertension, coronary artery disease, he has a history of MRSA bacteremia in prior admission, for which he was treated with vancomycin for 4 weeks. Past medical history of coronary artery disease. He is status post AR in 2006, hypertension, hyperlipidemia, history of lung cancer with resection in 1996, history of COPD. He stopped smoking since his recent admission in July. He has a history of the recent acute renal failure, nephrolithiasis, prostate cancer and BPH. His surgical history is notable for cholecystotomy tube that has been removed, he has had a TURP in the past, he had lung cancer resection in 1996, thyroidectomy in 2010. During his last admission, he had laparoscopy with Jayme patch in July. He had a percutaneous cholecystotomy as well, which was removed, and a left nephrostomy tube and suprapubic catheter. Suprapubic catheter has been removed. He had MRSA bacteremia and was treated with 4 weeks of IV vancomycin. He has no known drug allergies. His medications at the half-way include albuterol, Colace, Plavix, Coreg, bacitracin, Lipitor, aspirin, Spiriva, Flomax, Proscar, Mylanta, Klonopin. FAMILY HISTORY: Noncontributory. SOCIAL HISTORY: He was smoking until his admission in July. Since then, he stopped. He is currently residing at the half-way. REVIEW OF SYSTEMS: He has no complaints. He reports doing well at the half-way and he has been happy with them. He denies shortness of breath. He denies nausea, vomiting, diarrhea, or dysuria. He has no flank pain. MEDICATIONS FROM THE ASSISTED: He was started on Zosyn at the half-way on the and he was admitted on the . PHYSICAL EXAMINATION: Vital Signs: He has no fever. Temperature is 98.2. Pulse is 77. Blood pressure 105/54. Respiratory rate 20. HEENT: Normocephalic. His eyes are anicteric. Neck: Supple. Lungs: Diminished breath sounds at the left base with crackles. Heart: Regular rate and rhythm. Abdomen: Soft, nontender. He has a well-healed midline scar. He has a Shaw draining clear urine and he has no CVA tenderness or suprapubic pain. Extremities: Without edema. White count on admission was 12.1, this morning is 8.1, hemoglobin is 8.8, platelets are 388. BUN 29, creatinine 1.4. LFTs are normal. Urinalysis has 3+ leukocyte esterase with 120 white cells. Urine culture is growing Pseudomonas. In summary, this is a 71-year-old man admitted after his percutaneous nephrostomy tube came out. He has a complicated history including left-sided nephrolithiasis, which is why the tube was in place, UA is positive and urine culture is growing presumptive Pseudomonas. There is a good chance he will need cystoscopy so we will start cefepime and follow up cultures. CAT scan has been ordered by Urology. All of the above was discussed with Urology as well as with the hospitalist service. Number 2, chronic atelectasis of the lung. He is asymptomatic, and this will be managed with aggressive chest PT. Number 3, history of septic shock with perforated duodenal ulcer in July. EDGAR WAY M.D. /[id number]
[2016-09-27] MEDS: METOPROLOL SUCCINATE 25 MG TAB.SR.24H (FP) PO SCH (16:44)
--- NOTE | 2016-09-27 19:52 | CONS ---
PULMONARY CONSULTATION DATE OF CONSULTATION: 09/27/2016 REFERRING PHYSICIAN: Peterson Diaz MD The patient is a 71-year-old white male known to me from previous office visits. He has a past medical history of COPD, ASHD status post stents, hypertension, hyperlipidemia, a history of partial thyroidectomy, BPH status post TURP, recently hospitalized at [facility] secondary to septic shock secondary to pneumoperitoneum with obstructive uropathy status post lap, status post duodenal ulcer repair, acute cholecystitis, left lung atelectasis, [id number] kidney disease, who was transferred to [facility] for rehab, and was readmitted on September 26 status post his left nephrostomy tube falling out. 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 He denied any complaints of shortness of breath or chest pain. He presented to the emergency room with the above. The patient has a history of smoking. He quit approximately 6 months ago. There is no history of occupational exposure to chemicals or fumes. He denies any recent travel. There is no history of hemoptysis. There is no history of DVT or PE in the past. In the emergency room, the patient had a renal ultrasound which revealed a left kidney measuring normal size. Residual hydronephrosis was not present. He had nonobstructing calculi noticed in the left lower pole. He was admitted and started on ceftriaxone secondary to a positive urine culture. PAST MEDICAL HISTORY: Hyperlipidemia, ASHD status post stents, hypertension, recent respiratory failure secondary to septic shock with pneumoperitoneum, obstructive uropathy status post lap, duodenal ulcer repair, acute cholecystitis, left lung atelectasis, [id number] kidney disease, renal calculi, and prostate CA. SOCIAL HISTORY: History of tobacco use, quit 6 months ago. No occupational exposures. CURRENT MEDICATIONS: Flomax, Mylanta, cefepime, heparin, Tudorza, Klonopin, albuterol, Toprol, Lipitor, and Proscar. REVIEW OF SYSTEMS: No orthopnea. No PND. No chest pain. No palpitations. No abdominal pain. No nausea. No vomiting. No lower extremity edema. PHYSICAL EXAMINATION: General: The patient is a well-developed, well-nourished male, awake, alert, in no acute distress. Vital Signs: He is afebrile. Blood pressure 105/54, respiratory rate is 20, O2 saturation is 95% on 2 L. HEENT: Head normocephalic, atraumatic. Neck: Supple. Heart: Regular. S1, S2. Chest: Diminished breath sounds at the left base. A few crackles on the left. Abdomen: Soft. Bowel sounds are positive. Extremities: No sign of edema. LABORATORY DATA: WBC is 8.1, hemoglobin 8.8, hematocrit 27.1 with a platelet count of 388,000. INR is 1.17. BUN 29, creatinine 1.4. Chest x-ray: Improved aeration in the left lung but residual atelectasis at the base of the left lower lobe. IMPRESSION: 1. Chronic obstructive pulmonary disease, stable. 2. Left lung atelectasis, improving. 3. Obstructive uropathy. 4. Hypertension. 5. Status post history of recent respiratory failure secondary to septic shock. 6. Renal stones. 7. Urinary tract infection. 8. Enlarged prostate. PLAN: Inhaled bronchodilators, supplemental O2, chest PT, further workup as per , antibiotic as per Infectious Disease. NEDA SMALLS M.D. [id number]
[2016-09-27] MEDS ORDERED: CARVEDILOL 12.5 MG TABLET (FP) PO SCH (22:00)
[2016-09-27] MEDS: CEFEPIME 1 GM in DEXTROSE 5%-WATER - 100 ML IVPB SCH (22:17)
[2016-09-27] MEDS: ATORVASTATIN CA 20 MG TABLET (FP) PO SCH (22:17)
[2016-09-28] MEDS: HEPARIN NA (PORCINE) 5,000 UNITS/ML 1ML VIAL SQ SCH ×3 (06:53→21:55)
[2016-09-28] MEDS: clonazePAM 0.5 MG TABLET PO SCH ×2 (09:38→21:54)
--- NOTE | 2016-09-28 09:55 | PN ---
Progress Note (short form) - Note Progress Note: Resting in NAD. No CP or SOB. Mild dry cough. No acute events overnight. Intake & Output 09/25/16 09/26/16 09/27/16 09/28/16 23:59 23:59 23:59 23:59 Intake Total 200 620 Output Total 350 1950 800 Balance -150 -1330 -800 Weight 172 lb Last Vital Signs Temp Pulse Resp BP Pulse Ox 98.3 F 78 20 153/80 95 09/28/16 05:00 09/28/16 05:00 09/28/16 05:00 09/28/16 05:00 09/27/16 21:00 Active Medications Aclidinium [place] (Tudorza -) 1 puff IH BID [facility] Last Admin: 09/27/16 22:18 Dose: 1 puff Al Hydroxide/Mg Hydroxide (Mylanta Oral Suspension -) 30 ml PO Q6H PRN PRN Reason: PAIN Albuterol Sulfate (Ventolin 0.083% Nebulizer Soln -) 1 amp NEB Q4H PRN PRN Reason: SHORT OF BREATH/WHEEZING Atorvastatin Calcium (Lipitor -) 20 mg PO HS [facility] Last Admin: 09/27/16 22:17 Dose: 20 mg Clonazepam (Klonopin -) 1 mg PO BID [facility] Last Admin: 09/28/16 09:38 Dose: 1 mg Finasteride (Proscar -) 5 mg PO DAILY [facility] Last Admin: 09/27/16 09:24 Dose: 5 mg Heparin Sodium (Porcine) (Heparin -) 5,000 unit SQ TID [facility] Last Admin: 09/28/16 06:53 Dose: 5,000 unit Cefepime HCl 1 gm/ Dextrose 100 mls @ 200 mls/hr IVPB BID [facility] Last Admin: 09/27/16 22:17 Dose: 200 mls/hr Metoprolol Succinate (Toprol Xl -) 25 mg PO DAILY [facility] Last Admin: 09/27/16 16:44 Dose: 25 mg Tamsulosin HCl (Flomax -) 0.4 mg PO BID [facility] Last Admin: 09/27/16 22:17 Dose: 0.4 mg Constitutional: Yes: NAD Eyes: Yes: Conjunctiva Clear HENT: Yes: Atraumatic Cardiovascular: Yes: S1, S2 Respiratory: Yes: On Nasal O2, scattered basilar rhonchi Gastrointestinal: Yes: Soft Genitourinary: Yes: Shaw Present Musculoskeletal: Yes: Muscle Weakness Edema: No Neurological: Yes: Oriented Psychiatric: Yes: Oriented Labs: Problem List - Problems (1) Calculi, ureter Code(s): N20.1 - CALCULUS OF URETER (2) UTI (urinary tract infection) Code(s): N39.0 - URINARY TRACT INFECTION, SITE NOT SPECIFIED (3) Atelectasis of left lung Code(s): J98.11 - ATELECTASIS (4) CAD (coronary artery disease) Code(s): I25.10 - ATHSCL HEART DISEASE OF [place] CORONARY ARTERY W/O ANG PCTRS (5) CKD (chronic kidney disease) Code(s): N18.9 - CHRONIC KIDNEY DISEASE, UNSPECIFIED (6) HTN (hypertension) Code(s): I10 - ESSENTIAL (PRIMARY) HYPERTENSION Assessment/Plan Dislodged nephrostomy tube Left Nephrolithiasis / Hydronephrosis Atelectasis Resolving Pleural/Pericardial effusions ABX per ID O2 as needed workup ongoing BD TX PRN Will hold Tudorza for now (Anticholinergic) VTE prophylaxis Dr Bartholomew
[2016-09-28] MEDS ORDERED: PT OWN MED DRAWER 7, Y5N ONE (10:33)
[2016-09-28 10:51] LABS: CALCIUM 9.9 mg/dL (8.5-10.1); CREATININE 1.2 mg/dL (0.7-1.3)
[2016-09-28] MEDS: CEFEPIME 1 GM in DEXTROSE 5%-WATER - 100 ML IVPB SCH ×2 (12:43→21:55)
[2016-09-28] MEDS: TAMSULOSIN HCL 0.4 MG CAP.ER.24H (FP) PO SCH ×2 (12:43→21:53)
[2016-09-28] MEDS: METOPROLOL SUCCINATE 25 MG TAB.SR.24H (FP) PO SCH ×2 (12:43→15:22)
[2016-09-28] MEDS: FINASTERIDE 5 MG TABLET (FP) PO SCH (12:43)
--- NOTE | 2016-09-28 14:19 | PN ---
Progress Note, Physician History of Present Illness: Awake, alert No complaints No c/o abdominal pain No fever/chills WBC improved - Current Medication List Current Medications: Active Medications Al Hydroxide/Mg Hydroxide (Mylanta Oral Suspension -) 30 ml PO Q6H PRN PRN Reason: PAIN Albuterol Sulfate (Ventolin 0.083% Nebulizer Soln -) 1 amp NEB Q4H PRN PRN Reason: SHORT OF BREATH/WHEEZING Atorvastatin Calcium (Lipitor -) 20 mg PO HS [facility] Last Admin: 09/27/16 22:17 Dose: 20 mg Clonazepam (Klonopin -) 1 mg PO BID [facility] Last Admin: 09/28/16 09:38 Dose: 1 mg Finasteride (Proscar -) 5 mg PO DAILY [facility] Last Admin: 09/28/16 12:43 Dose: 5 mg Heparin Sodium (Porcine) (Heparin -) 5,000 unit SQ TID [facility] Last Admin: 09/28/16 06:53 Dose: 5,000 unit Cefepime HCl 1 gm/ Dextrose 100 mls @ 200 mls/hr IVPB BID [facility] Last Admin: 09/28/16 12:43 Dose: 200 mls/hr Metoprolol Succinate (Toprol Xl -) 25 mg PO DAILY [facility] Last Admin: 09/28/16 12:43 Dose: Not Given Tamsulosin HCl (Flomax -) 0.4 mg PO BID [facility] Last Admin: 09/28/16 12:43 Dose: 0.4 mg - Objective Vital Signs: Vital Signs Temperature 98.0 F 09/28/16 13:41 Pulse Rate 79 09/28/16 13:41 Respiratory Rate 20 09/28/16 13:41 Blood Pressure 132/67 09/28/16 13:41 O2 Sat by Pulse Oximetry (%) 95 09/27/16 21:00 Constitutional: Yes: No Distress Eyes: Yes: Conjunctiva Clear Cardiovascular: Yes: Regular Rate and Rhythm, S1, S2 Respiratory: Yes: CTA Bilaterally Gastrointestinal: Yes: Normal Bowel Sounds, Soft. No: Tenderness Labs: CBC, BMP 09/27/16 05:52 09/28/16 09:55 INR, PTT INR 1.17 (0.82-1.09) H 09/26/16 12:33 Assessment/Plan UTI-Pseudomonas Obstructive uropathy/ L nephrolithiasis S/P Septic shock S/P perforated duodenal ulcer For cysto/ureteroscopy/ lithotripsy Continue cefepime
--- NOTE | 2016-09-28 15:21 | PN ---
Progress Note, Physician History of Present Illness: Refusing any more toprol -. thinks it raised his BP last night willing to try it again No other complaints - Current Medication List Current Medications: Active Medications Al Hydroxide/Mg Hydroxide (Mylanta Oral Suspension -) 30 ml PO Q6H PRN PRN Reason: PAIN Albuterol Sulfate (Ventolin 0.083% Nebulizer Soln -) 1 amp NEB Q4H PRN PRN Reason: SHORT OF BREATH/WHEEZING Atorvastatin Calcium (Lipitor -) 20 mg PO HS [facility] Last Admin: 09/27/16 22:17 Dose: 20 mg Clonazepam (Klonopin -) 1 mg PO BID [facility] Last Admin: 09/28/16 09:38 Dose: 1 mg Finasteride (Proscar -) 5 mg PO DAILY [facility] Last Admin: 09/28/16 12:43 Dose: 5 mg Heparin Sodium (Porcine) (Heparin -) 5,000 unit SQ TID [facility] Last Admin: 09/28/16 06:53 Dose: 5,000 unit Cefepime HCl 1 gm/ Dextrose 100 mls @ 200 mls/hr IVPB BID [facility] Last Admin: 09/28/16 12:43 Dose: 200 mls/hr Metoprolol Succinate (Toprol Xl -) 25 mg PO DAILY [facility] Last Admin: 09/28/16 12:43 Dose: Not Given Tamsulosin HCl (Flomax -) 0.4 mg PO BID [facility] Last Admin: 09/28/16 12:43 Dose: 0.4 mg - Objective Vital Signs: Vital Signs Temperature 98.0 F 09/28/16 13:41 Pulse Rate 79 09/28/16 13:41 Respiratory Rate 20 09/28/16 13:41 Blood Pressure 132/67 09/28/16 13:41 O2 Sat by Pulse Oximetry (%) 95 09/28/16 09:00 Constitutional: Yes: No Distress Eyes: Yes: Conjunctiva Clear HENT: Yes: Atraumatic Neck: Yes: Supple Cardiovascular: Yes: Regular Rate and Rhythm Respiratory: No: Rales, Rhonchi, Wheezes Gastrointestinal: Yes: Normal Bowel Sounds, Soft Edema: No Peripheral Pulses WNL: Yes Neurological: Yes: Alert, Oriented Psychiatric: Yes: Alert, Oriented Labs: CBC, BMP 09/27/16 05:52 09/28/16 09:55 INR, PTT INR 1.17 (0.82-1.09) H 09/26/16 12:33 Assessment/Plan 1 yo male with CAD, NSTEMI 2006 (no cardiac cath or stents due to renal failure) , CKD, HTN, and COPD, who was recently hospitalized from -08/25/16 with septic shock from pneumoperitoneum -> repair of perforated viscus, acute cholecystitis -> cholecystectomy, and obstructive uropathy -> left nephrostomy. Patient [facility] due to displacement of his left nephrostomy tube. Cardiology consult was requested for pre-operative cardiac evaluation for possible urologic procedure. 08/24/16 Echo: Normal LV size and systolic function. Trace TR. 09/26/16 ECG demonstrates sinus rhythm. Patient without symptoms to suggest acute cardiac issues. Cont to remain stable RECS: Patient does not have any cardiac contraindications to surgery. Patient may proceed with urologic procedure/surgery (if clinically indicated) with acceptable cardiac risk and without further cardiac work-up or intervention. Patient's clopidogrel has been discontinued. Will resume aspirin and Plavix in future if no further invasive procedures are indicated. Continue metoprolol succinate 25 mg po daily. Will continue to monitor BP and uptitrate meds as needed. D/w pt and family D/w RN
--- NOTE | 2016-09-28 15:29 | PN ---
Physical Exam: SUBJECTIVE: Patient seen and examined. Denies lower abd pain today, SBO/CP. He is scared about his procedure but wants to have general anesthesia. Family member at bedside. OBJECTIVE: Vital Signs Period Temp Pulse Resp BP Sys/Tomlinson Pulse Ox Last 24 Hr 97.5 F-98.5 F 72-79 20-20 120-153/63-80 95-95 PE Neuro: alert, awake, cn 2-12intact Pulm: LL diminished min air movement, + NC CV: s1 s2 rrr no mrg Abd: s nt nd +bs : hooks + clear yellow urine Ext: warm, no edema Laboratory Results - last 24 hr 09/28/16 09:55 Sodium 142 Potassium 4.3 Chloride 102 Carbon Dioxide 30 Anion Gap 10 BUN 27 H Creatinine 1.2 Random Glucose 109 H D Calcium 9.9 Active Medications Generic Name Dose Route Start Last Admin Trade Name Freq PRN Reason Stop Dose Admin Al Hydroxide/Mg Hydroxide 30 ml 09/26/16 18:06 Mylanta Oral Suspension - PO Q6H PRN PAIN Albuterol Sulfate 1 amp 09/27/16 14:35 Ventolin 0.083% Nebulizer Soln - NEB Q4H PRN SHORT OF BREATH/WHEEZING Atorvastatin Calcium 20 mg 09/26/16 22:00 09/27/16 22:17 Lipitor - PO 20 mg HS [facility] Administration Clonazepam 1 mg 09/27/16 10:00 09/28/16 09:38 Klonopin - PO 1 mg BID [facility] Administration Finasteride 5 mg 09/27/16 10:00 09/28/16 12:43 Proscar - PO 5 mg DAILY [facility] Administration Heparin Sodium (Porcine) 5,000 unit 09/26/16 22:00 09/28/16 06:53 Heparin - SQ 5,000 unit TID [facility] Administration Cefepime HCl 1 gm/ Dextrose 100 mls @ 200 mls/hr 09/27/16 22:00 09/28/16 12:43 IVPB 200 mls/hr BID [facility] Administration Metoprolol Succinate 25 mg 09/27/16 13:30 09/28/16 12:43 Toprol Xl - PO Not Given DAILY [facility] Tamsulosin HCl 0.4 mg 09/26/16 22:00 09/28/16 12:43 Flomax - PO 0.4 mg BID [facility] Administration Microbiology 09/26/16 15:26 Urine Culture - Final Urine - Urine Hooks Pseudomonas Aeruginosa Assessment: 71 year old male admitted s/p dislodged left nephrostomy and incidental UTI finding. Plan: 1. Nephrolithiasis - CTAP reviewed 10x9mm stone noted - For lithotripsy/cysto/stent insertion tomorrow - D/w urology Dr. Ferro, appreciate consult 2. UTI d/t Pseudomonas Aeruginosa - Continue Cefepime BID (renally dosed) 3. Nephrostomy dislodged - Ureteroscopy/procedure as above 4. Renal insufficiency/CKD - Stable cr 1.2 5. CAD s/p PR in 2006 - Restart ASA and plavix once invasive procedures completed - Can proceed with acceptable cardiac risk and without further cardiac work-up or intervention - No hx of stents - Stress test in 01/2012 normal 6. HTN - Coreg stopped - Started on Metoprolol 25mg daily 7. Left lung atelectasis - CXR reviewed, currently no resp compromise, mildly improved from previous admission - Incentive spirometry - Tudorza discontinued 8. PPX - Heparin held after evening dose, restart tomorrow evening Visit type - Emergency Visit Emergency Visit: Yes ED Registration Date: 09/26/16 Care time: The patient presented to the Emergency Department on the above date and was hospitalized for further evaluation of their emergent condition. - New Patient This patient is new to me today: No - Critical Care Critical Care patient: No
[2016-09-28] MEDS: ATORVASTATIN CA 20 MG TABLET (FP) PO SCH (21:55)
[2016-09-28] MEDS: ALBUTEROL SO4 0.083% IH SOL 2.5 MG/3 ML VIAL.NEB. NEB PRN (22:04)
[2016-09-29 06:51] LABS: BASOPHIL 2.1 % (0-2.0); EOSINOPHIL 3.7 % (0-4.5); MCH 30.9 pg (25.7-33.7); MCHC 32.7 g/dl (32.0-35.9); MEAN CELL VOLUME 94.5 fl (80-96); MEAN PLT VOLUME 7.9 fl (7.5-11.1); NEUTROPHILS 65.8 % (42.8-82.8); PLATELET COUNT 427 K/MM3 (134-434); WHITE BLOOD COUNT 9.3 K/mm3 (4.0-10.0)
[2016-09-29 07:10] LABS: CALCIUM 9.3 mg/dL (8.5-10.1); CREATININE 1.4 mg/dL (0.7-1.3)
[2016-09-29] MEDS ORDERED: PT OWN MED DRAWER 7, Y5N ONE ×2 (10:37→21:40)
[2016-09-29] MEDS: ALBUTEROL SO4 0.083% IH SOL 2.5 MG/3 ML VIAL.NEB. NEB PRN (10:40)
[2016-09-29] MEDS: CEFEPIME 1 GM in DEXTROSE 5%-WATER - 100 ML IVPB SCH ×2 (11:25→22:17)
[2016-09-29] MEDS: clonazePAM 0.5 MG TABLET PO SCH ×2 (11:30→22:17)
[2016-09-29] MEDS: METOPROLOL SUCCINATE 25 MG TAB.SR.24H (FP) PO SCH (11:30)
[2016-09-29] MEDS: TAMSULOSIN HCL 0.4 MG CAP.ER.24H (FP) PO SCH ×2 (11:30→22:17)
[2016-09-29] MEDS: FINASTERIDE 5 MG TABLET (FP) PO SCH (11:30)
--- NOTE | 2016-09-29 12:34 | PN ---
Progress Note (short form) - Note Progress Note: no complaints for cystoscopy today and stent placement Vital Signs Period Temp Pulse Resp BP Sys/Tomlinson Pulse Ox Last 24 Hr 98.0 F-98.5 F 79-91 18-20 107-141/61-77 95-97 cor-rrr lungs clear abd soft,nt ext no edema CBC, BMP 09/29/16 06:00 09/29/16 06:00 Microbiology 09/26/16 15:26 Urine - Urine Shaw Urine Culture - Final Pseudomonas Aeruginosa a/p pseudomonas uti for stent today continue cefepime Problem List - Problems (1) UTI (urinary tract infection) Code(s): N39.0 - URINARY TRACT INFECTION, SITE NOT SPECIFIED Qualifiers: Hematuria presence: with hematuria (2) Nephrolithiasis Code(s): N20.0 - CALCULUS OF KIDNEY (3) Atelectasis of left lung Code(s): J98.11 - ATELECTASIS (4) Shaw catheter in place prior to arrival Code(s): NMK0286 -
--- NOTE | 2016-09-29 14:12 | OP ---
Operative Note - Note: Operative Date: 09/29/16 Pre-Operative Diagnosis: L ureteral calculi, L hydronephrosis, bladder calculi Operation: cystoscopy, laser lithotripsy of bladder calculi, attempted L ureteral catheterization Post-Operative Diagnosis: Same as Pre-op (L UVJ obstruction) Surgeon: Viral Ferro Anesthesiologist/MACHINE PAN GREASER: Cynthia Carter Anesthesia: General Specimens Removed: bladder calculi Estimated Blood Loss (mls): 0 Drains & Tubes with Location: 18 fr hooks Operative Report Dictated: Yes
[2016-09-29] MEDS ORDERED: PROPOFOL 20 ML ONE ×2 (14:23)
[2016-09-29] MEDS ORDERED: LIDOCAINE HCL 2% 100 MG/5 ML DISP.SYRIN ONE (14:24)
[2016-09-29] MEDS ORDERED: GENTAMICIN SO4 80 MG/2 ML VIAL ONE (14:32)
[2016-09-29] MEDS ORDERED: GENTAMICIN SO4 80 MG/2 ML VIAL IVPB ONE (14:39)
[2016-09-29] MEDS ORDERED: METHYLENE BLUE 1% 10 MG/1 ML VIAL ONE (14:48)
[2016-09-29] MEDS ORDERED: ONDANSETRON 4 MG/2 ML VIAL IVPUSH PRN (15:46)
--- NOTE | 2016-09-29 17:00 | PN ---
Physical Exam: SUBJECTIVE: Patient seen and examined. He is s/p cystoscopy, laser lithotripsy of bladder calculi and attempted L ureteral catheterization. He denies any pain but states he has some "soreness". OBJECTIVE: Vital Signs Period Temp Pulse Resp BP Sys/Tomlinson Pulse Ox Last 24 Hr 98.2 F-98.5 F 80-91 18-20 107-141/61-77 95-97 GENERAL: The patient is awake, alert, and fully oriented, in no acute distress. HEAD: Normal with no signs of trauma. EYES: PERRL, extraocular movements intact, sclera anicteric, conjunctiva clear. No ptosis. ENT: Ears normal, nares patent, oropharynx clear without exudates, moist mucous membranes. NECK: Trachea midline, full range of motion, supple. LUNGS: Left lung with diminished breath sounds HEART: Regular rate and rhythm ABDOMEN: Soft, nontender, nondistended, normoactive bowel sounds, no guarding, no rebound, no hepatosplenomegaly, no masses. EXTREMITIES: 2+ pulses, warm, well-perfused, no edema. NEUROLOGICAL: Normal speech, gait not observed. PSYCH: Normal mood, normal affect. SKIN: Warm, dry, normal turgor, no rashes or lesions noted Laboratory Results - last 24 hr 09/29/16 09/29/16 06:00 06:00 WBC 9.3 RBC 3.10 L Hgb 9.6 L Hct 29.3 L MCV 94.5 MCHC 32.7 RDW 16.0 H Plt Count 427 MPV 7.9 Neutrophils % 65.8 Lymphocytes % 15.9 Monocytes % 12.5 H Eosinophils % 3.7 Basophils % 2.1 H Sodium 142 Potassium 4.8 Chloride 101 Carbon Dioxide 31 Anion Gap 10 BUN 28 H Creatinine 1.4 H Random Glucose 103 Calcium 9.3 Active Medications Generic Name Dose Route Start Last Admin Trade Name Freq PRN Reason Stop Dose Admin Al Hydroxide/Mg Hydroxide 30 ml 09/26/16 18:06 Mylanta Oral Suspension - PO Q6H PRN PAIN Albuterol Sulfate 1 amp 09/27/16 14:35 09/29/16 10:40 Ventolin 0.083% Nebulizer Soln - NEB 1 amp Q4H PRN Administration SHORT OF BREATH/WHEEZING Atorvastatin Calcium 20 mg 09/26/16 22:00 09/28/16 21:55 Lipitor - PO Not Given HS [facility] Clonazepam 1 mg 09/27/16 10:00 09/29/16 11:30 Klonopin - PO 1 mg BID [facility] Administration Fentanyl 25 mcg 09/29/16 15:46 Sublimaze Injection - IVPUSH 10/02/16 15:47 [id number] PRN PAIN Fentanyl 50 mcg 09/29/16 15:46 Sublimaze Injection - IVPUSH 10/02/16 15:47 [id number] PRN PAIN Finasteride 5 mg 09/27/16 10:00 09/29/16 11:30 Proscar - PO 5 mg DAILY [facility] Administration Heparin Sodium (Porcine) 5,000 unit 09/26/16 22:00 09/28/16 21:55 Heparin - SQ Not Given TID [facility] Cefepime HCl 1 gm/ Dextrose 100 mls @ 200 mls/hr 09/27/16 22:00 09/29/16 11:25 IVPB 200 mls/hr BID [facility] Administration Metoprolol Succinate 25 mg 09/27/16 13:30 09/29/16 11:30 Toprol Xl - PO 25 mg DAILY [facility] Administration Ondansetron HCl 4 mg 09/29/16 15:46 Zofran Injection IVPUSH 09/29/16 21:47 Q6H PRN NAUSEA AND/OR VOMITING Tamsulosin HCl 0.4 mg 09/26/16 22:00 09/29/16 11:30 Flomax - PO 0.4 mg BID [facility] Administration ASSESSMENT/PLAN: Patient is a 71 year old male skilled nursing resident ([facility]) that was sent from the skilled nursing secondary to left nephrostomy tube falling out upon awakening. On 07/2016 he underwent a left percutanous nephrostomy for 1cm obstructing L UPJ calculus and L hydronephrosis. Patient has no complaints presently including flank pain, nausea or fever. Today he underwent a cystoscopy, laser lithotripsy of bladder calculi and attempted L ureteral catheterization. Shaw catheter with gross hematuria. Imaging: Abdominal CT 09/27/2016 shows multiple non obstructing left renal stones and a moderate left renal hydronephrosis with an obstructing stone in the proximal left ureter measuring 10 x 9 mm and a couple of adjacent puncture stones present along its superior margin. : Nephrolithiasis with dislodgment of nephostomy tube - acute Assessment/Plan: Cystoscopy with lithotripsy and stent insertion today Monitor for pain/discomfort. Morphine as needed. UTI - acute Assessment/Plan: Urine cultures show Pseudomonas Aeruginosa On Cefepime Hcl 1gram BID Chronic Kidney Disease Assessment/Plan: Continue IV hydration, monitor renal function Renal following. Cardiology: CAD s/p ID Assessment/Plan: On ASA and Plavix daily Will restart medications once hematuria resolves Hypertension - chronic Assessment/Plan: On Metoprolol 25mg daily Monitor BPs F.E.N. Fluids: Continue normal saline @ 100cc/hr Electrolytes: BMP in a.m. monitor h/h Nutrition: low sodium diet Prophylaxis: DVT: Anticoags on hold secondary to hematuria, SCDs to bilateral legs GI: Colace, Miralax Disposition: Requires inpatient hospitalization. full code. Visit type - Emergency Visit Emergency Visit: Yes ED Registration Date: 09/26/16 Care time: The patient presented to the Emergency Department on the above date and was hospitalized for further evaluation of their emergent condition. - New Patient This patient is new to me today: Yes Date on this admission: 09/30/16 - Critical Care Critical Care patient: No - Discharge Referral Referred to [facility] Med P.C.: No
[2016-09-29] MEDS ORDERED: morphine CARPU-JECT 2 MG/1 ML DISP.SYRIN IVPUSH PRN (17:27)
[2016-09-29] MEDS: SODIUM CHLORIDE 1,000 ML IV SCH (22:16)
[2016-09-29] MEDS: ATORVASTATIN CA 20 MG TABLET (FP) PO SCH (22:17)
[2016-09-30] MEDS: HEPARIN NA (PORCINE) 5,000 UNITS/ML 1ML VIAL SQ SCH ×3 (06:43→22:31)
--- NOTE | 2016-09-30 08:19 | PN ---
Progress Note (short form) - Note Progress Note: Anesthesia Post op Pt seen and examined S:Sleeping. awake upon voice O: Vital Signs Temperature 98.1 F 09/30/16 03:00 Pulse Rate 73 09/30/16 03:00 Respiratory Rate 20 09/30/16 03:00 Blood Pressure 112/60 09/30/16 03:00 O2 Sat by Pulse Oximetry (%) 96 09/29/16 21:00 A/P:Current Active Problems COPD (chronic obstructive pulmonary disease) (Acute) Calculi, ureter (Acute) Shaw catheter in place prior to arrival (Acute) Nephrolithiasis (Acute) UTI (urinary tract infection) (Acute) s/p cysto Doing well Continue current care Alejandro Ma MD
[2016-09-30 08:22] LABS: MCHC 32.7 g/dl (32.0-35.9); MEAN CELL VOLUME 94.7 fl (80-96); PLATELET COUNT 412 K/MM3 (134-434); RDW 15.4 % (11.9-15.9); WHITE BLOOD COUNT 11.2 K/mm3 (4.0-10.0)
--- NOTE | 2016-09-30 08:27 | PN ---
Progress Note, Physician History of Present Illness: No chest pain or dyspnea. - Current Medication List Current Medications: Active Medications Al Hydroxide/Mg Hydroxide (Mylanta Oral Suspension -) 30 ml PO Q6H PRN PRN Reason: PAIN Albuterol Sulfate (Ventolin 0.083% Nebulizer Soln -) 1 amp NEB Q4H PRN PRN Reason: SHORT OF BREATH/WHEEZING Last Admin: 09/29/16 10:40 Dose: 1 amp Atorvastatin Calcium (Lipitor -) 20 mg PO HS [facility] Last Admin: 09/29/16 22:17 Dose: 20 mg Clonazepam (Klonopin -) 1 mg PO BID [facility] Last Admin: 09/29/16 22:17 Dose: 1 mg Fentanyl (Sublimaze Injection -) 25 mcg IVPUSH [id number] PRN PRN Reason: PAIN Stop: 10/02/16 15:47 Fentanyl (Sublimaze Injection -) 50 mcg IVPUSH [id number] PRN PRN Reason: PAIN Stop: 10/02/16 15:47 Finasteride (Proscar -) 5 mg PO DAILY [facility] Last Admin: 09/29/16 11:30 Dose: 5 mg Heparin Sodium (Porcine) (Heparin -) 5,000 unit SQ TID [facility] Last Admin: 09/30/16 06:43 Dose: 5,000 unit Cefepime HCl 1 gm/ Dextrose 100 mls @ 200 mls/hr IVPB BID [facility] Last Admin: 09/29/16 22:17 Dose: 200 mls/hr Sodium Chloride (Normal Saline -) 1,000 mls @ 100 mls/hr IV ASDIR [facility] Last Admin: 09/29/16 22:16 Dose: 100 mls/hr Metoprolol Succinate (Toprol Xl -) 25 mg PO DAILY [facility] Last Admin: 09/29/16 11:30 Dose: 25 mg Morphine Sulfate (Morphine Injection -) 2 mg IVPUSH Q4H PRN PRN Reason: PAIN Tamsulosin HCl (Flomax -) 0.4 mg PO BID [facility] Last Admin: 09/29/16 22:17 Dose: 0.4 mg - Objective Vital Signs: Vital Signs Temperature 98.1 F 09/30/16 03:00 Pulse Rate 73 09/30/16 03:00 Respiratory Rate 20 09/30/16 03:00 Blood Pressure 112/60 09/30/16 03:00 O2 Sat by Pulse Oximetry (%) 96 09/29/16 21:00 Constitutional: Yes: Well Nourished, No Distress Eyes: Yes: Conjunctiva Clear, EOM Intact HENT: Yes: Atraumatic, Normocephalic Cardiovascular: Yes: Regular Rate and Rhythm. No: JVD Respiratory: Yes: CTA Bilaterally Gastrointestinal: Yes: Normal Bowel Sounds, Soft Edema: No Neurological: Yes: Alert, Oriented, Cran Nerves II-XII Intact Labs: INR, PTT INR 1.17 (0.82-1.09) H 09/26/16 12:33 Assessment/Plan 71 yo male with CAD, NSTEMI 2006 (no cardiac cath or stents due to renal failure ), CKD, HTN, and COPD, who was recently hospitalized from -08/25/16 with septic shock from pneumoperitoneum -> repair of perforated viscus, acute cholecystitis -> cholecystectomy, and obstructive uropathy -> left nephrostomy. Patient was [facility] to displacement of his left nephrostomy tube. Cardiology consult was requested for pre-operative cardiac evaluation for possible urologic procedure. 08/24/16 Echo: Normal LV size and systolic function. Trace TR. 09/26/16 ECG demonstrates sinus rhythm. Patient without symptoms to suggest acute cardiac issues. On 09/29/16, patient underwent cystoscopy, laser lithotripsy of bladder calculi, and attempted L ureteral catheterization but was unsuccessful. RECS: Patient's aspirin and Plavix continue to be on hold. Will consider resuming these meds if no further invasive procedures to be done. However, patient reports that he may be pending further urologic procedures on Sunday (?). Continue metoprolol succinate 25 mg po daily. Will continue to monitor BP and uptitrate meds as needed. Will follow. Call with questions.
--- NOTE | 2016-09-30 08:29 | PN ---
CINTHIA Mina Note History of Present Illness: pt w/o c/o - Objective Vital Signs: Vital Signs Temperature 98.1 F 09/30/16 03:00 Pulse Rate 73 09/30/16 03:00 Respiratory Rate 20 09/30/16 03:00 Blood Pressure 112/60 09/30/16 03:00 O2 Sat by Pulse Oximetry (%) 96 09/29/16 21:00 Genitourinary: Yes: Hooks Present (clerar yellow urine) Labs/Additional Data: INR, PTT INR 1.17 (0.82-1.09) H 09/26/16 12:33 Blood Type Blood Type O NEGATIVE 09/26/16 12:33 Antibody Screen Negative 09/26/16 12:33 Assessment/Plan Imp: 1 cm obstructing L proximal ureteral calculus, L hydronephrosis, L renal calculi, L UVJ obstruction, atrophic R kidney Rec: cont iv abxs and hooks. IR Dr. Israel to reinsert L nephrostomy, L nephrostogram and antegrade L JJ stent insertion Sunday10/02/16.
--- NOTE | 2016-09-30 09:02 | OP ---
DATE OF OPERATION: 09/29/2016 PREOPERATIVE DIAGNOSES: Left ureteral and bladder calculi and left hydronephrosis. POSTOPERATIVE DIAGNOSES: Left ureteral and bladder calculi and left hydronephrosis plus left ureterovesical junction obstruction. PROCEDURE: Cystoscopy, laser lithotripsy of bladder calculi, attempted left ureteral catheterization. SURGEON: Viral Ferro MD FUEL YARD OPERATOR: None. ANESTHESIA: General via laryngeal mask. ANESTHESIOLOGIST: Cynthia Carter MD SPECIMENS: Bladder calculi. CULTURES: None. DRAINS: An 18-Haitian Shaw catheter. ESTIMATED BLOOD LOSS: Negligible. COMPLICATIONS: None. PROCEDURE: Patient was brought to the operating room, placed on the operating table in the supine position. After administration of general anesthesia via laryngeal mask, intravenous antibiotics were administered and the patient was placed in the dorsal lithotomy position. Indwelling Shaw catheter was removed. Sequential compression devices were applied. Genitals and perineum were prepped and draped in the usual sterile manner. A 22-Haitian cystoscope was inserted into the anterior urethra under direct vision. The anterior urethra was normal. The prostatic urethra demonstrated the patient is status post TURP with some false passages in the prostatic urethra from previous attempted Shaw catheterizations. Now, the bladder was entered and thoroughly inspected. There were no foreign bodies or tumors. There were numerous bladder stones. Neither ureteral orifice could be clearly visualized nor was there any efflux in the area of the expected location of the ureteral orifices. Intravenous methylene blue was administered and now laser lithotripsy of the bladder stones was done and the stones were removed. After waiting approximately 15 minutes, no methylene blue was seen coming from either right side or left side of the trigone. It appeared that the patient had his ureteral orifices resected at the time of TURP as there were no visible orifices. After waiting approximately 15 to 20 minutes, there was no efflux of methylene blue into the bladder. Multiple attempts at inserting a guidewire into what appeared to be a left ureteral orifice were unsuccessful. Under fluoroscopy, retrograde pyelogram was done, demonstrated extravasation at the level of the left ureterovesical junction with no dye entering a distal ureter. After multiple attempts, the decision was made to abort the procedure and proceed with left nephrostomy followed by antegrade stent insertion by Dr. Israel. He tolerated the procedure well, was awoken from anesthesia in the operating room. The bladder was left full and the instruments removed and an 18-Haitian Shaw catheter was replaced. He was transferred to the recovery room in stable condition after tolerating the procedure well. VIRAL FERRO M.D. [id number]
[2016-09-30 09:10] LABS: ALBUMIN 2.4 g/dl (3.4-5.0)
[2016-09-30 09:13] LABS: BILIRUBIN,TOTAL 0.3 mg/dL (0.2-1.0); CALCIUM 8.9 mg/dL (8.5-10.1); CREATININE 1.3 mg/dL (0.7-1.3); TOT PROT 6.1 g/dl (6.4-8.2)
[2016-09-30] MEDS ORDERED: PT OWN MED DRAWER 7, Y5N ONE ×2 (09:21→22:28)
[2016-09-30] MEDS: CEFEPIME 1 GM in DEXTROSE 5%-WATER - 100 ML IVPB SCH ×2 (09:28→22:31)
[2016-09-30] MEDS: TAMSULOSIN HCL 0.4 MG CAP.ER.24H (FP) PO SCH ×2 (09:28→22:31)
[2016-09-30] MEDS: clonazePAM 0.5 MG TABLET PO SCH ×2 (09:28→22:30)
[2016-09-30] MEDS: FINASTERIDE 5 MG TABLET (FP) PO SCH (09:28)
[2016-09-30] MEDS: METOPROLOL SUCCINATE 25 MG TAB.SR.24H (FP) PO SCH (09:29)
--- NOTE | 2016-09-30 10:33 | PN ---
Progress Note (short form) - Note Progress Note: Resting in NAD. No CP or SOB. Mild dry cough. No acute events overnight. Intake & Output 09/27/16 09/28/16 09/29/16 09/30/16 23:59 23:59 23:59 23:59 Intake Total 620 177 746 1019 Output Total 1950 2400 1200 800 Balance -1330 -1520 -500 200 Last Vital Signs Temp Pulse Resp BP Pulse Ox 97.9 F 83 20 117/63 95 09/30/16 09:55 09/30/16 09:55 09/30/16 09:55 09/30/16 09:55 09/30/16 09:00 Active Medications Al Hydroxide/Mg Hydroxide (Mylanta Oral Suspension -) 30 ml PO Q6H PRN PRN Reason: PAIN Albuterol Sulfate (Ventolin 0.083% Nebulizer Soln -) 1 amp NEB Q4H PRN PRN Reason: SHORT OF BREATH/WHEEZING Last Admin: 09/29/16 10:40 Dose: 1 amp Atorvastatin Calcium (Lipitor -) 20 mg PO HS [facility] Last Admin: 09/29/16 22:17 Dose: 20 mg Clonazepam (Klonopin -) 1 mg PO BID [facility] Last Admin: 09/30/16 09:28 Dose: 1 mg Fentanyl (Sublimaze Injection -) 25 mcg IVPUSH [id number] PRN PRN Reason: PAIN Stop: 10/02/16 15:47 Fentanyl (Sublimaze Injection -) 50 mcg IVPUSH [id number] PRN PRN Reason: PAIN Stop: 10/02/16 15:47 Finasteride (Proscar -) 5 mg PO DAILY [facility] Last Admin: 09/30/16 09:28 Dose: 5 mg Heparin Sodium (Porcine) (Heparin -) 5,000 unit SQ TID [facility] Last Admin: 09/30/16 06:43 Dose: 5,000 unit Cefepime HCl 1 gm/ Dextrose 100 mls @ 200 mls/hr IVPB BID [facility] Last Admin: 09/30/16 09:28 Dose: 200 mls/hr Sodium Chloride (Normal Saline -) 1,000 mls @ 100 mls/hr IV ASDIR [facility] Last Admin: 09/29/16 22:16 Dose: 100 mls/hr Metoprolol Succinate (Toprol Xl -) 25 mg PO DAILY [facility] Last Admin: 09/30/16 09:29 Dose: 25 mg Morphine Sulfate (Morphine Injection -) 2 mg IVPUSH Q4H PRN PRN Reason: PAIN Tamsulosin HCl (Flomax -) 0.4 mg PO BID [facility] Last Admin: 09/30/16 09:28 Dose: 0.4 mg Constitutional: Yes: NAD Eyes: Yes: Conjunctiva Clear HENT: Yes: Atraumatic Cardiovascular: Yes: S1, S2 Respiratory: Yes: On Nasal O2, scattered basilar rhonchi Gastrointestinal: Yes: Soft Genitourinary: Yes: Shaw Present Musculoskeletal: Yes: Muscle Weakness Edema: No Neurological: Yes: Oriented Psychiatric: Yes: Oriented Labs: Laboratory Results - last 24 hr 09/30/16 09/30/16 06:00 06:00 WBC 11.2 H RBC 2.82 L Hgb 8.7 L Hct 26.7 L MCV 94.7 MCHC 32.7 RDW 15.4 Plt Count 412 MPV 8.0 Neutrophils % Y Lymphocytes % Y Sodium 140 Potassium 4.8 Chloride 101 Carbon Dioxide 30 Anion Gap 9 BUN 27 H Creatinine 1.3 Creat Clearance w eGFR 54.57 Random Glucose 104 Calcium 8.9 Total Bilirubin 0.3 AST 14 L D ALT 35 Alkaline Phosphatase 66 Total Protein 6.1 L Albumin 2.4 L Problem List - Problems (1) Calculi, ureter Code(s): N20.1 - CALCULUS OF URETER (2) UTI (urinary tract infection) Code(s): N39.0 - URINARY TRACT INFECTION, SITE NOT SPECIFIED (3) Atelectasis of left lung Code(s): J98.11 - ATELECTASIS (4) CAD (coronary artery disease) Code(s): I25.10 - ATHSCL HEART DISEASE OF [place] CORONARY ARTERY W/O ANG PCTRS (5) CKD (chronic kidney disease) Code(s): N18.9 - CHRONIC KIDNEY DISEASE, UNSPECIFIED (6) HTN (hypertension) Code(s): I10 - ESSENTIAL (PRIMARY) HYPERTENSION Assessment/Plan Dislodged nephrostomy tube Left Nephrolithiasis / Hydronephrosis Atelectasis Resolving Pleural/Pericardial effusions ABX per ID O2 as needed workup ongoing BD TX PRN Continue to hold Tudorza (Anticholinergic) VTE prophylaxis Dr Bartholomew
[2016-09-30 10:45] LABS: PLATELET ESTIMATE MOD INCREASED (NORMAL)
[2016-09-30 10:46] LABS: ANISOCYTOSIS 1+; HYPOCHROMIA 1+; PLATELET COMMENT2 NO CLOTTING DETECTED
--- NOTE | 2016-09-30 12:15 | PN ---
Physical Exam: SUBJECTIVE: Patient seen and examined. He was sitting in the wheelchair, in no acute distress. Denies any chest pain or shortness of breath. Tolerating room air. OBJECTIVE: Vital Signs Period Temp Pulse Resp BP Sys/Tomlinson Pulse Ox Last 24 Hr 97.3 F-98.1 F 73-89 16-20 105-147/8-86 95-96 GENERAL: The patient is awake, alert, and fully oriented, in no acute distress. HEAD: Normal with no signs of trauma. EYES: PERRL, extraocular movements intact, sclera anicteric, conjunctiva clear. No ptosis. ENT: Ears normal, nares patent, oropharynx clear without exudates, moist mucous membranes. NECK: Trachea midline, full range of motion, supple. LUNGS: Left lung with diminished breath sounds HEART: Regular rate and rhythm ABDOMEN: Soft, nontender, nondistended, normoactive bowel sounds, no guarding, no rebound, no hepatosplenomegaly, no masses. EXTREMITIES: 2+ pulses, warm, well-perfused, no edema. NEUROLOGICAL: Normal speech, gait not observed. PSYCH: Normal mood, normal affect. SKIN: Warm, dry, normal turgor, no rashes or lesions noted Laboratory Results - last 24 hr 09/30/16 09/30/16 06:00 06:00 WBC 11.2 H RBC 2.82 L Hgb 8.7 L Hct 26.7 L MCV 94.7 MCHC 32.7 RDW 15.4 Plt Count 412 MPV 8.0 Neutrophils % 70.0 Lymphocytes % 10.0 D Monocytes % 9.0 Eosinophils % 1.0 Basophils % 1.0 Band Neutrophils 5.0 D Platelet Estimate Mod increased Platelet Comment No clotting detected Hypochromic-Microcytic 1+ Anisocytosis 1+ Sodium 140 Potassium 4.8 Chloride 101 Carbon Dioxide 30 Anion Gap 9 BUN 27 H Creatinine 1.3 Creat Clearance w eGFR 54.57 Random Glucose 104 Calcium 8.9 Total Bilirubin 0.3 AST 14 L D ALT 35 Alkaline Phosphatase 66 Total Protein 6.1 L Albumin 2.4 L Active Medications Generic Name Dose Route Start Last Admin Trade Name Freq PRN Reason Stop Dose Admin Al Hydroxide/Mg Hydroxide 30 ml 09/26/16 18:06 Mylanta Oral Suspension - PO Q6H PRN PAIN Albuterol Sulfate 1 amp 09/27/16 14:35 09/29/16 10:40 Ventolin 0.083% Nebulizer Soln - NEB 1 amp Q4H PRN Administration SHORT OF BREATH/WHEEZING Atorvastatin Calcium 20 mg 09/26/16 22:00 09/29/16 22:17 Lipitor - PO 20 mg HS NASIR Administration Clonazepam 1 mg 09/27/16 10:00 09/30/16 09:28 Klonopin - PO 1 mg BID [facility]IR Administration Fentanyl 25 mcg 09/29/16 15:46 Sublimaze Injection - IVPUSH 10/02/16 15:47 [id number] PRN PAIN Fentanyl 50 mcg 09/29/16 15:46 Sublimaze Injection - IVPUSH 10/02/16 15:47 [id number] PRN PAIN Finasteride 5 mg 09/27/16 10:00 09/30/16 09:28 Proscar - PO 5 mg DAILY [facility] Administration Heparin Sodium (Porcine) 5,000 unit 09/26/16 22:00 09/30/16 06:43 Heparin - SQ 5,000 unit TID [facility]IR Administration Cefepime HCl 1 gm/ Dextrose 100 mls @ 200 mls/hr 09/27/16 22:00 09/30/16 09:28 IVPB 200 mls/hr BID [facility] Administration Sodium Chloride 1,000 mls @ 100 mls/hr 09/29/16 18:00 09/29/16 22:16 Normal Saline - IV 100 mls/hr ASDIR [facility]IR Administration Metoprolol Succinate 25 mg 09/27/16 13:30 09/30/16 09:29 Toprol Xl - PO 25 mg DAILY [facility] Administration Morphine Sulfate 2 mg 09/29/16 17:27 Morphine Injection - IVPUSH Q4H PRN PAIN Tamsulosin HCl 0.4 mg 09/26/16 22:00 09/30/16 09:28 Flomax - PO 0.4 mg BID [facility] Administration ASSESSMENT/PLAN: Patient is a 71 year old male long term resident ([facility]) that was sent from the long term secondary to left nephrostomy tube falling out upon awakening. On 07/2016 he underwent a left percutanous nephrostomy for 1cm obstructing L UPJ calculus and L hydronephrosis. Yesterday he underwent a cystoscopy, laser lithotripsy of bladder calculi and attempted L ureteral catheterization. On Sunday10/02/16 he is scheduled to have a L nephrostomy, L nephrostogram and antegrade L JJ stent insertion. Imaging: Abdominal CT 09/27/2016 shows multiple non obstructing left renal stones and a moderate left renal hydronephrosis with an obstructing stone in the proximal left ureter measuring 10 x 9 mm and a couple of adjacent puncture stones present along its superior margin. : Nephrolithiasis with dislodgment of nephostomy tube - acute Assessment/Plan: Yesterday he underwent a cystoscopy, laser lithotripsy of bladder calculi and attempted L ureteral catheterization. On Sunday10/02/16 he is scheduled to have a L nephrostomy, L nephrostogram and antegrade L JJ stent insertion. Monitor for pain/discomfort. Morphine as needed. UTI - acute Assessment/Plan: Urine cultures show Pseudomonas Aeruginosa On Cefepime Hcl 1gram BID, renal dosed ID following Chronic Kidney Disease Assessment/Plan: Continue IV hydration, monitor renal function Has hooks catheter, no hematuria noted, continue hooks Renal following. Cardiology: CAD s/p ND Assessment/Plan: On ASA and Plavix daily As per Cardiology, resume ASA and Plavix when no further invasive procedures to be done. Plan is to restart ASA and Plavix after Sunday's procedure Hypertension - chronic Assessment/Plan: On Metoprolol 25mg daily Monitor BPs and up titrate meds as needed. Low hmg/hct - low stable since admission. asymptomatic If falls <8 will transfuse Pulmonary: Left lung atelectasis - chronic Assessment/Plan: Left lung consolidation Chest xray shows mild improvement from previous admission Encouraged to use incentive spirometer Oxygen as needed F.E.N. Fluids: Continue normal saline @ 100cc/hr Electrolytes: BMP in a.m. monitor h/h Nutrition: low sodium diet Prophylaxis: DVT: On Heparin, SCDs to bilateral legs GI: Colace, Miralax Disposition: Requires inpatient hospitalization. full code. Visit type - Emergency Visit Emergency Visit: Yes ED Registration Date: 09/26/16 Care time: The patient presented to the Emergency Department on the above date and was hospitalized for further evaluation of their emergent condition. - New Patient This patient is new to me today: No - Critical Care Critical Care patient: No - Discharge Referral Referred to [facility] Med P.C.: No
[2016-09-30] MEDS: SODIUM CHLORIDE 1,000 ML IV SCH (20:28)
[2016-09-30] MEDS: ALBUTEROL SO4 0.083% IH SOL 2.5 MG/3 ML VIAL.NEB. NEB PRN (20:54)
[2016-09-30] MEDS: ATORVASTATIN CA 20 MG TABLET (FP) PO SCH (22:31)
[2016-10-01] MEDS: HEPARIN NA (PORCINE) 5,000 UNITS/ML 1ML VIAL SQ SCH ×2 (06:08→15:22)
[2016-10-01] MEDS: SODIUM CHLORIDE 1,000 ML IV SCH ×2 (06:12→22:14)
[2016-10-01 09:28] LABS: MCHC 31.8 g/dl (32.0-35.9); MEAN CELL VOLUME 94.3 fl (80-96); MEAN PLT VOLUME 7.2 fl (7.5-11.1); PLATELET COUNT 402 K/MM3 (134-434); RDW 15.7 % (11.9-15.9); WHITE BLOOD COUNT 16.2 K/mm3 (4.0-10.0)
[2016-10-01 09:57] LABS: ALBUMIN 2.2 g/dl (3.4-5.0); ANION GAP 8 (8-16); BILIRUBIN,TOTAL 0.2 mg/dL (0.2-1.0); CALCIUM 9.1 mg/dL (8.5-10.1); CO2 28 mmol/L (21-32); CREATININE 1.1 mg/dL (0.7-1.3); GLUCOSE,RANDOM 98 mg/dL (74-106); SGOT/AST 10 U/L (15-37); SGPT/ALT 28 U/L (12-78); TOT PROT 5.7 g/dl (6.4-8.2)
[2016-10-01 09:58] LABS: ALK PHOS 71 U/L (45-117)
--- NOTE | 2016-10-01 10:14 | PN ---
Progress Note, Physician History of Present Illness: No chest pain or dyspnea. - Current Medication List Current Medications: Active Medications Al Hydroxide/Mg Hydroxide (Mylanta Oral Suspension -) 30 ml PO Q6H PRN PRN Reason: PAIN Albuterol Sulfate (Ventolin 0.083% Nebulizer Soln -) 1 amp NEB Q4H PRN PRN Reason: SHORT OF BREATH/WHEEZING Last Admin: 09/30/16 20:54 Dose: 1 amp Atorvastatin Calcium (Lipitor -) 20 mg PO HS [facility] Last Admin: 09/30/16 22:31 Dose: 20 mg Clonazepam (Klonopin -) 1 mg PO BID [facility] Last Admin: 09/30/16 22:30 Dose: 1 mg Fentanyl (Sublimaze Injection -) 25 mcg IVPUSH [id number] PRN PRN Reason: PAIN Stop: 10/02/16 15:47 Fentanyl (Sublimaze Injection -) 50 mcg IVPUSH [id number] PRN PRN Reason: PAIN Stop: 10/02/16 15:47 Finasteride (Proscar -) 5 mg PO DAILY [facility] Last Admin: 09/30/16 09:28 Dose: 5 mg Heparin Sodium (Porcine) (Heparin -) 5,000 unit SQ TID [facility] Last Admin: 10/01/16 06:08 Dose: 5,000 unit Cefepime HCl 1 gm/ Dextrose 100 mls @ 200 mls/hr IVPB BID [facility] Last Admin: 09/30/16 22:31 Dose: 200 mls/hr Sodium Chloride (Normal Saline -) 1,000 mls @ 100 mls/hr IV ASDIR [facility] Last Admin: 10/01/16 06:12 Dose: 100 mls/hr Metoprolol Succinate (Toprol Xl -) 25 mg PO DAILY [facility] Last Admin: 09/30/16 09:29 Dose: 25 mg Morphine Sulfate (Morphine Injection -) 2 mg IVPUSH Q4H PRN PRN Reason: PAIN Pantoprazole Sodium (Protonix -) 40 mg PO DAILY [facility] Tamsulosin HCl (Flomax -) 0.4 mg PO BID [facility] Last Admin: 09/30/16 22:31 Dose: 0.4 mg - Objective Vital Signs: Vital Signs Temperature 97.7 F 10/01/16 06:04 Pulse Rate 84 10/01/16 06:04 Respiratory Rate 20 10/01/16 06:04 Blood Pressure 111/56 10/01/16 06:04 O2 Sat by Pulse Oximetry (%) 96 09/30/16 21:00 Constitutional: Yes: No Distress Eyes: Yes: Conjunctiva Clear, EOM Intact HENT: Yes: Atraumatic, Normocephalic Cardiovascular: Yes: Regular Rate and Rhythm. No: JVD Respiratory: Yes: CTA Bilaterally Gastrointestinal: Yes: Normal Bowel Sounds, Soft Edema: No Neurological: Yes: Alert, Oriented, Cran Nerves II-XII Intact Labs: CBC, BMP 10/01/16 09:00 10/01/16 09:00 INR, PTT INR 1.17 (0.82-1.09) H 09/26/16 12:33 Assessment/Plan 71 yo male with CAD, NSTEMI 2006 (no cardiac cath or stents due to renal failure ), CKD, HTN, and COPD, who was recently hospitalized from -08/25/16 with septic shock from pneumoperitoneum -> repair of perforated viscus, acute cholecystitis -> cholecystectomy, and obstructive uropathy -> left nephrostomy. Patient was admitted on 09/26 from [facility] due to displacement of his left nephrostomy tube. Cardiology consult was requested for pre-operative cardiac evaluation for possible urologic procedure. 08/24/16 Echo: Normal LV size and systolic function. Trace TR. 09/26/16 ECG demonstrates sinus rhythm. Patient without symptoms to suggest acute cardiac issues. On 09/29/16, patient underwent cystoscopy, laser lithotripsy of bladder calculi, and attempted L ureteral catheterization but was unsuccessful. Currently pending L nephrostomy, L nephrostogram, and antegrade L JJ stent insertion on Sunday10/02/16. RECS: Patient's aspirin and Plavix continue to be on hold pending procedure on Sunday. Continue metoprolol succinate 25 mg po daily. Will continue to monitor BP and uptitrate meds as needed. Will follow. Call with questions.
[2016-10-01 10:37] LABS: HYPOCHROMIA 1+; METAMYELOCYTE 2 % (0-2)
[2016-10-01] MEDS: ALBUTEROL SO4 0.083% IH SOL 2.5 MG/3 ML VIAL.NEB. NEB PRN (10:40)
[2016-10-01] MEDS ORDERED: PT OWN MED DRAWER 7, Y5N ONE (11:02)
[2016-10-01] MEDS: CEFEPIME 1 GM in DEXTROSE 5%-WATER - 100 ML IVPB SCH ×2 (11:03→22:14)
[2016-10-01] MEDS: PANTOPRAZOLE 40 MG TABLET (FP) PO SCH (11:03)
--- NOTE | 2016-10-01 11:03 | PN ---
Physical Exam: SUBJECTIVE: Patient seen and examined. 0830 Received call from patients primary nurse stating patient has RLQ pain/ discomfort that began one hour ago. 0845 Pt examined at the beside, states he is having right lower quadrant discomfort, pain that feels like its "sore, tender and uncomfortable". States pain started 1 hour ago. He denies any associated nausea or vomiting. On exam, abdomen is soft, non distended, no pain illicited on deep palpation on any of the quadrants, no mass palpated He is tolerated his breakfast, had a recent BM yesterday. 1300 Pt re-examined, and states RLQ pain has subsided. OBJECTIVE: GENERAL: The patient is awake, alert, and fully oriented, in no acute distress. HEAD: Normal with no signs of trauma. EYES: PERRL, extraocular movements intact, sclera anicteric, conjunctiva clear. No ptosis. ENT: Ears normal, nares patent, oropharynx clear without exudates, moist mucous membranes. NECK: Trachea midline, full range of motion, supple. LUNGS: Left lung with diminished breath sounds, right lung clear HEART: Regular rate and rhythm ABDOMEN: see above EXTREMITIES: 2+ pulses, warm, well-perfused, no edema. NEUROLOGICAL: Normal speech, gait not observed. PSYCH: Normal mood, normal affect. SKIN: Warm, dry, normal turgor, no rashes or lesions noted Vital Signs Period Temp Pulse Resp BP Sys/Tomlinson Pulse Ox Last 24 Hr 97.7 F-99.7 F 69-96 20-20 109-145/52-69 96-97 Laboratory Results - last 24 hr 10/01/16 10/01/16 09:00 09:00 WBC 16.2 H D RBC 2.90 L Hgb 8.7 L Hct 27.3 L MCV 94.3 MCHC 31.8 L RDW 15.7 Plt Count 402 MPV 7.2 L Neutrophils % 70.0 Lymphocytes % 10.0 Monocytes % 14.0 H Eosinophils % 2.0 D Band Neutrophils 2.0 D Metamyelocytes 2 D Differential Comment Manual diff done Hypochromic-Microcytic 1+ Basophilic Stippling 1+ Morphology Comment Slide scanned Sodium 140 Potassium 4.2 Chloride 104 Carbon Dioxide 28 Anion Gap 8 BUN 26 H Creatinine 1.1 Creat Clearance w eGFR > 60 Random Glucose 98 Calcium 9.1 Total Bilirubin 0.2 D AST 10 L D ALT 28 Alkaline Phosphatase 71 Total Protein 5.7 L Albumin 2.2 L Active Medications Generic Name Dose Route Start Last Admin Trade Name Freq PRN Reason Stop Dose Admin Al Hydroxide/Mg Hydroxide 30 ml 09/26/16 18:06 Mylanta Oral Suspension - PO Q6H PRN PAIN Albuterol Sulfate 1 amp 09/27/16 14:35 10/01/16 10:40 Ventolin 0.083% Nebulizer Soln - NEB 1 amp Q4H PRN Administration SHORT OF BREATH/WHEEZING Atorvastatin Calcium 20 mg 09/26/16 22:00 09/30/16 22:31 Lipitor - PO 20 mg HS NASIR Administration Clonazepam 1 mg 09/27/16 10:00 09/30/16 22:30 Klonopin - PO 1 mg BID [facility]IR Administration Fentanyl 25 mcg 09/29/16 15:46 Sublimaze Injection - IVPUSH 10/02/16 15:47 [id number] PRN PAIN Fentanyl 50 mcg 09/29/16 15:46 Sublimaze Injection - IVPUSH 10/02/16 15:47 [id number] PRN PAIN Finasteride 5 mg 09/27/16 10:00 09/30/16 09:28 Proscar - PO 5 mg DAILY [facility] Administration Heparin Sodium (Porcine) 5,000 unit 09/26/16 22:00 10/01/16 06:08 Heparin - SQ 5,000 unit TID [facility]IR Administration Cefepime HCl 1 gm/ Dextrose 100 mls @ 200 mls/hr 09/27/16 22:00 09/30/16 22:31 IVPB 200 mls/hr BID [facility]IR Administration Sodium Chloride 1,000 mls @ 100 mls/hr 09/29/16 18:00 10/01/16 06:12 Normal Saline - IV 100 mls/hr ASDIR NASIR Administration Metoprolol Succinate 25 mg 09/27/16 13:30 09/30/16 09:29 Toprol Xl - PO 25 mg DAILY [facility] Administration Morphine Sulfate 2 mg 09/29/16 17:27 Morphine Injection - IVPUSH Q4H PRN PAIN Pantoprazole Sodium 40 mg 10/01/16 10:00 Protonix - PO DAILY [facility] Tamsulosin HCl 0.4 mg 09/26/16 22:00 09/30/16 22:31 Flomax - PO 0.4 mg BID NASIR Administration ASSESSMENT/PLAN: Patient is a 71 year old male senior care resident ([facility]) with a past medical history of pre-diabetes, TURP, partial thyroidectomy and perforated viscous. He was sent to the ER on 09/26/26 from the senior care after his left nephrostomy tube fell out upon awakening. On 07/2016 he was admitted for septic shock secondary to a perforated viscous. At that time he was also found to be in renal failure and underwent a left percutanous nephrostomy for 1cm obstructing L UPJ calculus and L hydronephrosis. He was scheduled for a follow up with his urologist @ [place], but has not yet seen his urologist. On 09/29/2016 he underwent a cystoscopy, laser lithotripsy of bladder calculi and attempted L ureteral catheterization. On Sunday10/02/16 he is scheduled to have a L nephrostomy, L nephrostogram and antegrade L JJ stent insertion. Imaging: Abdominal CT 09/27/2016 shows multiple non obstructing left renal stones and a moderate left renal hydronephrosis with an obstructing stone in the proximal left ureter measuring 10 x 9 mm and a couple of adjacent puncture stones present along its superior margin. : Nephrolithiasis with dislodgment of nephostomy tube - acute Assessment/Plan: on 09/29/2016 he underwent a cystoscopy, laser lithotripsy of bladder calculi and an attempted L ureteral catheterization. He is now scheduled for reinsert of a L nephrostomy, L nephrostogram and antegrade L JJ stent insertion Sunday10/02/16 with interventional radiology UTI - acute Assessment/Plan: Urine cultures show Pseudomonas Aeruginosa On Cefepime Hcl 1gram BID, renal dosed ID following His WBC increased to 16.2 today. He is afebrile, non toxic appearing Blood cultures ordered. Chronic Kidney Disease Assessment/Plan: Continue IV hydration, and monitor renal function Has hooks catheter, with clear yellow urine Renal following. Cardiology: CAD s/p [place] Assessment/Plan: On ASA and Plavix daily As per Cardiology, resume ASA and Plavix when no further invasive procedures to be done. Plan is to restart ASA and Plavix after Sunday's procedure Hypertension - chronic Assessment/Plan: On Metoprolol 25mg daily Monitor BPs and up titrate meds as needed. Low hmg/hct - low stable since admission. asymptomatic If falls <8 will transfuse. Pulmonary: Left lung atelectasis - chronic Assessment/Plan: Left lung consolidation Chest xray shows mild improvement from previous admission Encouraged to use incentive spirometer Oxygen as needed F.E.N. Fluids: Continue normal saline @ 100cc/hr Electrolytes: BMP daily, monitor h/h Nutrition: low sodium diet, NPO at midnight Prophylaxis: DVT: On Heparin, SCDs to bilateral legs, Hold Heparin tonight and resume after tomorrow's procedure GI: Colace, Miralax Disposition: Requires inpatient hospitalization. full code. Visit type - Emergency Visit Emergency Visit: Yes ED Registration Date: 09/26/16 Care time: The patient presented to the Emergency Department on the above date and was hospitalized for further evaluation of their emergent condition. - New Patient This patient is new to me today: No - Critical Care Critical Care patient: No - Discharge Referral Referred to [facility] Med P.C.: No
[2016-10-01] MEDS: FINASTERIDE 5 MG TABLET (FP) PO SCH (11:04)
[2016-10-01] MEDS: METOPROLOL SUCCINATE 25 MG TAB.SR.24H (FP) PO SCH (11:04)
[2016-10-01] MEDS: TAMSULOSIN HCL 0.4 MG CAP.ER.24H (FP) PO SCH ×2 (11:04→22:12)
[2016-10-01] MEDS: clonazePAM 0.5 MG TABLET PO SCH ×2 (11:04→22:13)
--- NOTE | 2016-10-01 11:06 | PN ---
Progress Note (short form) - Note Progress Note: Resting in NAD. No CP or SOB. Minimal dry cough. No acute events overnight. Intake & Output 09/28/16 09/29/16 09/30/16 10/01/16 23:59 23:59 23:59 23:59 Intake Total 695 335 9242 900 Output Total 2400 1200 2000 1500 Balance -1520 -500 -130 -600 Last Vital Signs Temp Pulse Resp BP Pulse Ox 98.3 F 91 H 20 145/69 97 10/01/16 10:00 10/01/16 10:40 10/01/16 10:00 10/01/16 10:00 10/01/16 10:40 Active Medications Al Hydroxide/Mg Hydroxide (Mylanta Oral Suspension -) 30 ml PO Q6H PRN PRN Reason: PAIN Albuterol Sulfate (Ventolin 0.083% Nebulizer Soln -) 1 amp NEB Q4H PRN PRN Reason: SHORT OF BREATH/WHEEZING Last Admin: 10/01/16 10:40 Dose: 1 amp Atorvastatin Calcium (Lipitor -) 20 mg PO HS [facility] Last Admin: 09/30/16 22:31 Dose: 20 mg Clonazepam (Klonopin -) 1 mg PO BID [facility] Last Admin: 10/01/16 11:04 Dose: 1 mg Fentanyl (Sublimaze Injection -) 25 mcg IVPUSH [id number] PRN PRN Reason: PAIN Stop: 10/02/16 15:47 Fentanyl (Sublimaze Injection -) 50 mcg IVPUSH [id number] PRN PRN Reason: PAIN Stop: 10/02/16 15:47 Finasteride (Proscar -) 5 mg PO DAILY [facility] Last Admin: 10/01/16 11:04 Dose: 5 mg Heparin Sodium (Porcine) (Heparin -) 5,000 unit SQ TID [facility] Last Admin: 10/01/16 06:08 Dose: 5,000 unit Cefepime HCl 1 gm/ Dextrose 100 mls @ 200 mls/hr IVPB BID [facility] Last Admin: 10/01/16 11:03 Dose: 200 mls/hr Sodium Chloride (Normal Saline -) 1,000 mls @ 100 mls/hr IV ASDIR [facility] Last Admin: 10/01/16 06:12 Dose: 100 mls/hr Metoprolol Succinate (Toprol Xl -) 25 mg PO DAILY [facility] Last Admin: 10/01/16 11:04 Dose: 25 mg Morphine Sulfate (Morphine Injection -) 2 mg IVPUSH Q4H PRN PRN Reason: PAIN Pantoprazole Sodium (Protonix -) 40 mg PO DAILY [facility] Last Admin: 10/01/16 11:03 Dose: 40 mg Tamsulosin HCl (Flomax -) 0.4 mg PO BID [facility] Last Admin: 10/01/16 11:04 Dose: 0.4 mg Constitutional: Yes: NAD Eyes: Yes: Conjunctiva Clear HENT: Yes: Atraumatic Cardiovascular: Yes: S1, S2 Respiratory: Yes: On Nasal O2, scattered basilar rhonchi Gastrointestinal: Yes: Soft Genitourinary: Yes: Shaw Present Musculoskeletal: Yes: Muscle Weakness Edema: No Neurological: Yes: Oriented Psychiatric: Yes: Oriented Labs: Laboratory Results - last 24 hr 10/01/16 10/01/16 09:00 09:00 WBC 16.2 H D RBC 2.90 L Hgb 8.7 L Hct 27.3 L MCV 94.3 MCHC 31.8 L RDW 15.7 Plt Count 402 MPV 7.2 L Neutrophils % 70.0 Lymphocytes % 10.0 Monocytes % 14.0 H Eosinophils % 2.0 D Band Neutrophils 2.0 D Metamyelocytes 2 D Differential Comment Manual diff done Hypochromic-Microcytic 1+ Basophilic Stippling 1+ Morphology Comment Slide scanned Sodium 140 Potassium 4.2 Chloride 104 Carbon Dioxide 28 Anion Gap 8 BUN 26 H Creatinine 1.1 Creat Clearance w eGFR > 60 Random Glucose 98 Calcium 9.1 Total Bilirubin 0.2 D AST 10 L D ALT 28 Alkaline Phosphatase 71 Total Protein 5.7 L Albumin 2.2 L Problem List - Problems (1) Calculi, ureter Code(s): N20.1 - CALCULUS OF URETER (2) UTI (urinary tract infection) Code(s): N39.0 - URINARY TRACT INFECTION, SITE NOT SPECIFIED (3) Atelectasis of left lung Code(s): J98.11 - ATELECTASIS (4) CAD (coronary artery disease) Code(s): I25.10 - ATHSCL HEART DISEASE OF [place] CORONARY ARTERY W/O ANG PCTRS (5) CKD (chronic kidney disease) Code(s): N18.9 - CHRONIC KIDNEY DISEASE, UNSPECIFIED (6) HTN (hypertension) Code(s): I10 - ESSENTIAL (PRIMARY) HYPERTENSION Assessment/Plan Dislodged nephrostomy tube Left Nephrolithiasis / Hydronephrosis Atelectasis Resolving Pleural/Pericardial effusions ABX per ID O2 as needed workup ongoing BD TX PRN Continue to hold Tudorza (Anticholinergic) VTE prophylaxis Dr Bartholomew
--- NOTE | 2016-10-01 13:50 | PN ---
Progress Note, Physician History of Present Illness: operative note appreciated No c/o pain Shaw catheter in place Afebrile but bump in WBC - Current Medication List Current Medications: Active Medications Al Hydroxide/Mg Hydroxide (Mylanta Oral Suspension -) 30 ml PO Q6H PRN PRN Reason: PAIN Albuterol Sulfate (Ventolin 0.083% Nebulizer Soln -) 1 amp NEB Q4H PRN PRN Reason: SHORT OF BREATH/WHEEZING Last Admin: 10/01/16 10:40 Dose: 1 amp Atorvastatin Calcium (Lipitor -) 20 mg PO HS [facility] Last Admin: 09/30/16 22:31 Dose: 20 mg Clonazepam (Klonopin -) 1 mg PO BID [facility] Last Admin: 10/01/16 11:04 Dose: 1 mg Fentanyl (Sublimaze Injection -) 25 mcg IVPUSH [id number] PRN PRN Reason: PAIN Stop: 10/02/16 15:47 Fentanyl (Sublimaze Injection -) 50 mcg IVPUSH [id number] PRN PRN Reason: PAIN Stop: 10/02/16 15:47 Finasteride (Proscar -) 5 mg PO DAILY [facility] Last Admin: 10/01/16 11:04 Dose: 5 mg Heparin Sodium (Porcine) (Heparin -) 5,000 unit SQ TID [facility] Last Admin: 10/01/16 06:08 Dose: 5,000 unit Cefepime HCl 1 gm/ Dextrose 100 mls @ 200 mls/hr IVPB BID [facility] Last Admin: 10/01/16 11:03 Dose: 200 mls/hr Sodium Chloride (Normal Saline -) 1,000 mls @ 100 mls/hr IV ASDIR [facility] Last Admin: 10/01/16 06:12 Dose: 100 mls/hr Metoprolol Succinate (Toprol Xl -) 25 mg PO DAILY [facility] Last Admin: 10/01/16 11:04 Dose: 25 mg Morphine Sulfate (Morphine Injection -) 2 mg IVPUSH Q4H PRN PRN Reason: PAIN Pantoprazole Sodium (Protonix -) 40 mg PO DAILY [facility] Last Admin: 10/01/16 11:03 Dose: 40 mg Tamsulosin HCl (Flomax -) 0.4 mg PO BID [facility] Last Admin: 10/01/16 11:04 Dose: 0.4 mg - Objective Vital Signs: Vital Signs Temperature 98.3 F 10/01/16 10:00 Pulse Rate 91 H 10/01/16 10:40 Respiratory Rate 20 10/01/16 10:00 Blood Pressure 145/69 10/01/16 10:00 O2 Sat by Pulse Oximetry (%) 97 10/01/16 10:40 Constitutional: Yes: No Distress Eyes: Yes: Conjunctiva Clear Cardiovascular: Yes: Regular Rate and Rhythm, S1, S2 Respiratory: Yes: CTA Bilaterally Gastrointestinal: Yes: Normal Bowel Sounds, Soft. No: Tenderness Edema: No Labs: CBC, BMP 10/01/16 09:00 10/01/16 09:00 INR, PTT INR 1.17 (0.82-1.09) H 09/26/16 12:33 Assessment/Plan UTI-Pseudomonas Obstructive uropathy/ L nephrolithiasis S/P Septic shock S/P perforated duodenal ulcer Continue cefepime For L PCN
[2016-10-01] MEDS: ATORVASTATIN CA 20 MG TABLET (FP) PO SCH (22:13)
[2016-10-02] MEDS: SODIUM CHLORIDE 1,000 ML IV SCH (02:18)
[2016-10-02 06:59] LABS: MCH 30.1 pg (25.7-33.7); MCHC 31.7 g/dl (32.0-35.9); MEAN CELL VOLUME 94.9 fl (80-96); MEAN PLT VOLUME 7.8 fl (7.5-11.1); PLATELET COUNT 393 K/MM3 (134-434); RDW 16.1 % (11.9-15.9); WHITE BLOOD COUNT 13.6 K/mm3 (4.0-10.0)
[2016-10-02 07:21] LABS: CALCIUM 8.5 mg/dL (8.5-10.1)
[2016-10-02 07:25] LABS: BILIRUBIN,TOTAL 0.2 mg/dL (0.2-1.0); CREATININE 1.2 mg/dL (0.7-1.3); TOT PROT 5.4 g/dl (6.4-8.2)
[2016-10-02 09:26] LABS: HYPOCHROMIA 1+
[2016-10-02 09:27] LABS: ANISOCYTOSIS 2+; MICROCYTOSIS 1+
[2016-10-02] MEDS: FINASTERIDE 5 MG TABLET (FP) PO SCH (10:21)
[2016-10-02] MEDS: PANTOPRAZOLE 40 MG TABLET (FP) PO SCH (10:21)
[2016-10-02] MEDS: TAMSULOSIN HCL 0.4 MG CAP.ER.24H (FP) PO SCH ×2 (10:21→21:39)
[2016-10-02] MEDS: CEFEPIME 1 GM in DEXTROSE 5%-WATER - 100 ML IVPB SCH ×2 (10:21→21:39)
[2016-10-02] MEDS: clonazePAM 0.5 MG TABLET PO SCH ×2 (10:21→21:40)
[2016-10-02] MEDS: METOPROLOL SUCCINATE 25 MG TAB.SR.24H (FP) PO SCH (10:21)
--- NOTE | 2016-10-02 10:31 | PN ---
Progress Note, Physician History of Present Illness: No chest pain. Mild dyspnea this AM. - Current Medication List Current Medications: Active Medications Al Hydroxide/Mg Hydroxide (Mylanta Oral Suspension -) 30 ml PO Q6H PRN PRN Reason: PAIN Albuterol Sulfate (Ventolin 0.083% Nebulizer Soln -) 1 amp NEB Q4H PRN PRN Reason: SHORT OF BREATH/WHEEZING Last Admin: 10/01/16 10:40 Dose: 1 amp Atorvastatin Calcium (Lipitor -) 20 mg PO HS [facility] Last Admin: 10/01/16 22:13 Dose: 20 mg Clonazepam (Klonopin -) 1 mg PO BID [facility] Last Admin: 10/02/16 10:21 Dose: 1 mg Fentanyl (Sublimaze Injection -) 25 mcg IVPUSH [id number] PRN PRN Reason: PAIN Stop: 10/02/16 15:47 Fentanyl (Sublimaze Injection -) 50 mcg IVPUSH [id number] PRN PRN Reason: PAIN Stop: 10/02/16 15:47 Finasteride (Proscar -) 5 mg PO DAILY [facility] Last Admin: 10/02/16 10:21 Dose: 5 mg Heparin Sodium (Porcine) (Heparin -) 5,000 unit SQ TID [facility] Last Admin: 10/01/16 15:22 Dose: 5,000 unit Cefepime HCl 1 gm/ Dextrose 100 mls @ 200 mls/hr IVPB BID [facility] Last Admin: 10/02/16 10:21 Dose: 200 mls/hr Metoprolol Succinate (Toprol Xl -) 25 mg PO DAILY [facility] Last Admin: 10/02/16 10:21 Dose: 25 mg Morphine Sulfate (Morphine Injection -) 2 mg IVPUSH Q4H PRN PRN Reason: PAIN Pantoprazole Sodium (Protonix -) 40 mg PO DAILY [facility] Last Admin: 10/02/16 10:21 Dose: 40 mg Tamsulosin HCl (Flomax -) 0.4 mg PO BID [facility] Last Admin: 10/02/16 10:21 Dose: 0.4 mg - Objective Vital Signs: Vital Signs Temperature 98.0 F 10/02/16 10:00 Pulse Rate 98 H 10/02/16 10:00 Respiratory Rate 20 10/02/16 10:00 Blood Pressure 148/80 10/02/16 10:00 O2 Sat by Pulse Oximetry (%) 95 10/01/16 21:00 Constitutional: Yes: No Distress Eyes: Yes: Conjunctiva Clear, EOM Intact HENT: Yes: Atraumatic, Normocephalic Cardiovascular: Yes: Regular Rate and Rhythm. No: JVD, Murmur Respiratory: Yes: CTA Bilaterally Gastrointestinal: Yes: Normal Bowel Sounds, Soft Edema: No Neurological: Yes: Alert, Oriented Labs: CBC, BMP 10/02/16 06:00 10/02/16 06:00 INR, PTT INR 1.17 (0.82-1.09) H 09/26/16 12:33 Assessment/Plan 71 yo male with CAD, NSTEMI 2006 (no cardiac cath or stents due to renal failure ), CKD, HTN, and COPD, who was recently hospitalized from -08/25/16 with septic shock from pneumoperitoneum -> repair of perforated viscus, acute cholecystitis -> cholecystectomy, and obstructive uropathy -> left nephrostomy. Patient was admitted on 09/26 from assisted due to displacement of his left nephrostomy tube. Cardiology consult was requested for pre-operative cardiac evaluation for possible urologic procedure. 08/24/16 Echo: Normal LV size and systolic function. Trace TR. 09/26/16 ECG demonstrates sinus rhythm. Patient without symptoms to suggest acute cardiac issues. On 09/29/16, patient underwent cystoscopy, laser lithotripsy of bladder calculi, and attempted L ureteral catheterization but was unsuccessful. Currently pending L nephrostomy, L nephrostogram, and antegrade L JJ stent insertion on Sunday10/02/16. Patient with some mild dyspnea this AM while on IV fluids. RECS: Patient's aspirin and Plavix continue to be on hold pending procedure on Sunday. Please restart post-procedure when OK per interventional radiology. Continue metoprolol succinate 25 mg po daily. Will continue to monitor BP and uptitrate meds as needed. Would hold further IV fluids. Will follow. Call with questions.
--- NOTE | 2016-10-02 10:54 | PN ---
Progress Note (short form) - Note Progress Note: PULMONARY More shortness of breath today and chest congestion. +cough and wheezing. No fevers or chills. Last Vital Signs Temp Pulse Resp BP Pulse Ox 98.0 F 98 H 20 148/80 95 10/02/16 10:00 10/02/16 10:00 10/02/16 10:00 10/02/16 10:00 10/01/16 21:00 Gen: NAD at rest Heart: RRR Lung: bilateral rhonchi, wheezes Abd: soft, nontender EXt: no edema CBC, BMP 10/02/16 06:00 10/02/16 06:00 Active Medications Al Hydroxide/Mg Hydroxide (Mylanta Oral Suspension -) 30 ml PO Q6H PRN PRN Reason: PAIN Albuterol Sulfate (Ventolin 0.083% Nebulizer Soln -) 1 amp NEB Q4H PRN PRN Reason: SHORT OF BREATH/WHEEZING Last Admin: 10/01/16 10:40 Dose: 1 amp Atorvastatin Calcium (Lipitor -) 20 mg PO [facility] Last Admin: 10/01/16 22:13 Dose: 20 mg Clonazepam (Klonopin -) 1 mg PO BID [facility] Last Admin: 10/02/16 10:21 Dose: 1 mg Fentanyl (Sublimaze Injection -) 25 mcg IVPUSH [id number] PRN PRN Reason: PAIN Stop: 10/02/16 15:47 Fentanyl (Sublimaze Injection -) 50 mcg IVPUSH [id number] PRN PRN Reason: PAIN Stop: 10/02/16 15:47 Finasteride (Proscar -) 5 mg PO DAILY [facility] Last Admin: 10/02/16 10:21 Dose: 5 mg Heparin Sodium (Porcine) (Heparin -) 5,000 unit SQ TID [facility] Last Admin: 10/01/16 15:22 Dose: 5,000 unit Cefepime HCl 1 gm/ Dextrose 100 mls @ 200 mls/hr IVPB BID [facility] Last Admin: 10/02/16 10:21 Dose: 200 mls/hr Metoprolol Succinate (Toprol Xl -) 25 mg PO DAILY [facility] Last Admin: 10/02/16 10:21 Dose: 25 mg Morphine Sulfate (Morphine Injection -) 2 mg IVPUSH Q4H PRN PRN Reason: PAIN Pantoprazole Sodium (Protonix -) 40 mg PO DAILY [facility] Last Admin: 10/02/16 10:21 Dose: 40 mg Tamsulosin HCl (Flomax -) 0.4 mg PO BID [facility] Last Admin: 10/02/16 10:21 Dose: 0.4 mg A/P Dislodged Nephrostomy UTI Left Atelectasis COPD CAD CKD HTN - will change inhaled bronchodilators to standing - if no improvement by tomorrow, can start short course of systemic steroids - O2 as needed - continue antibiotics - for L nephrostomy placement - incentive spirometry - DVT prophylaxis
[2016-10-02] MEDS: ALBUTEROL SO4 2.5/IPRATROPIUM 0.5 INH SOL 3 ML VIAL.NEB. NEB SCH ×3 (11:00→23:45)
--- NOTE | 2016-10-02 11:37 | PN ---
Progress Note (short form) - Note Progress Note: awaiting IR procedure today quite frustrated Vital Signs Period Temp Pulse Resp BP Sys/Tomlinson Pulse Ox Last 24 Hr 97.8 F-99.4 F 76-98 20-20 122-155/59-80 95 cor-rrr llungs scattered rhonchi abd soft,nt ext no edema +hooks CBC, BMP 10/02/16 06:00 10/02/16 06:00 Microbiology 09/26/16 15:26 Urine - Urine Hooks Urine Culture - Final Pseudomonas Aeruginosa a/p pseudomonas UTI- day #6 cefepime for PCN today hopefully d/c antibiotics next 24 to 48 hours Problem List - Problems (1) UTI (urinary tract infection) Code(s): N39.0 - URINARY TRACT INFECTION, SITE NOT SPECIFIED Qualifiers: Hematuria presence: with hematuria (2) Nephrolithiasis Code(s): N20.0 - CALCULUS OF KIDNEY (3) Atelectasis of left lung Code(s): J98.11 - ATELECTASIS (4) Hooks catheter in place prior to arrival Code(s): VQP7819 -
[2016-10-02] MEDS ORDERED: LEVOFLOXACIN 500 MG IVPB 100 ML IVPB ONE (12:50)
--- NOTE | 2016-10-02 18:32 | PN ---
Physical Exam: SUBJECTIVE: Patient seen and examined. 0900 Patient seen before Nephrostomy tube insertion and noted to have shortness of breath and on 2 liters of nasal cannula Assessed pt at the bedside with Dr. Allen. IV fluids d/cd secondary to congestion. 1700 Patient seen post L nephrostomy tube insertion, pt denies any shortness of breath, tolerating room air Left nephrostomy tube draining clear yellow urine. Spoke to patient about discharge planning. OBJECTIVE: GENERAL: The patient is awake, alert, and fully oriented, in no acute distress. HEAD: Normal with no signs of trauma. EYES: PERRL, extraocular movements intact, sclera anicteric, conjunctiva clear. No ptosis. ENT: Ears normal, nares patent, oropharynx clear without exudates, moist mucous membranes. NECK: Trachea midline, full range of motion, supple. LUNGS: bilateral lungs with evidence of congestion and anterior wheezing, IVF d/ cd HEART: Regular rate and rhythm ABDOMEN: see above EXTREMITIES: 2+ pulses, warm, well-perfused, no edema. NEUROLOGICAL: Normal speech, gait not observed. PSYCH: Normal mood, normal affect. SKIN: Warm, dry, normal turgor, no rashes or lesions noted Vital Signs Period Temp Pulse Resp BP Sys/Tomlinson Pulse Ox Last 24 Hr 98.0 F-98.9 F 79-98 14-20 135-166/62-80 90-100 Laboratory Results - last 24 hr 10/02/16 10/02/16 06:00 06:00 WBC 13.6 H RBC 2.76 L Hgb 8.3 L Hct 26.2 L MCV 94.9 MCHC 31.7 L RDW 16.1 H Plt Count 393 MPV 7.8 Neutrophils % 75.0 Lymphocytes % 7.0 L D Monocytes % 11.0 H Eosinophils % 5.0 H D Basophils % 1.0 Band Neutrophils 1.0 D Differential Comment Manual diff done Hypochromic-Microcytic 1+ Anisocytosis 2+ Microcytosis 1+ Macrocytosis 1+ Sodium 141 Potassium 4.3 Chloride 106 Carbon Dioxide 26 Anion Gap 9 BUN 24 H Creatinine 1.2 Creat Clearance w eGFR 59.86 Random Glucose 89 Calcium 8.5 Total Bilirubin 0.2 AST 12 L ALT 26 Alkaline Phosphatase 70 Total Protein 5.4 L Albumin 2.0 L Active Medications Generic Name Dose Route Start Last Admin Trade Name Freq PRN Reason Stop Dose Admin Al Hydroxide/Mg Hydroxide 30 ml 09/26/16 18:06 Mylanta Oral Suspension - PO Q6H PRN PAIN Albuterol Sulfate 1 amp 09/27/16 14:35 10/01/16 10:40 Ventolin 0.083% Nebulizer Soln - NEB 1 amp Q4H PRN Administration SHORT OF BREATH/WHEEZING Albuterol/Ipratropium 1 amp 10/02/16 12:00 10/02/16 11:00 Duoneb - NEB 1 amp QIDR NASIR Administration Atorvastatin Calcium 20 mg 09/26/16 22:00 10/01/16 22:13 Lipitor - PO 20 mg HS [facility]IR Administration Clonazepam 1 mg 09/27/16 10:00 10/02/16 10:21 Klonopin - PO 1 mg BID NASIR Administration Finasteride 5 mg 09/27/16 10:00 10/02/16 10:21 Proscar - PO 5 mg DAILY [facility] Administration Heparin Sodium (Porcine) 5,000 unit 09/26/16 22:00 10/01/16 15:22 Heparin - SQ 5,000 unit TID NASIR Administration Cefepime HCl 1 gm/ Dextrose 100 mls @ 200 mls/hr 09/27/16 22:00 10/02/16 10:21 IVPB 200 mls/hr BID [facility]IR Administration Metoprolol Succinate 25 mg 09/27/16 13:30 10/02/16 10:21 Toprol Xl - PO 25 mg DAILY [facility] Administration Pantoprazole Sodium 40 mg 10/01/16 10:00 10/02/16 10:21 Protonix - PO 40 mg DAILY [facility] Administration Tamsulosin HCl 0.4 mg 09/26/16 22:00 10/02/16 10:21 Flomax - PO 0.4 mg BID [facility] Administration ASSESSMENT/PLAN: Patient is a 71 [facility] male [facility] resident ([facility]) with a past medical history of pre-diabetes, TURP, partial thyroidectomy and perforated viscous. He was sent to the ER [facility] from the [facility] after his left nephrostomy tube fell out upon awakening. On 07/2016 he was admitted for septic shock secondary to a perforated viscous. At that time he was also found to be in renal failure and underwent a left percutanous nephrostomy for 1cm obstructing L UPJ calculus and L hydronephrosis. He was scheduled for a follow up with his urologist @ [facility], but has not yet seen his urologist. On 09/29/2016 he underwent a cystoscopy, laser lithotripsy of bladder calculi and attempted L ureteral catheterization. Today he underwent a left nephrostomy tube placement, draining clear yellow urine. Imaging: Abdominal CT 09/27/2016 shows multiple non obstructing left renal stones and a moderate left renal hydronephrosis with an obstructing stone in the proximal left ureter measuring 10 x 9 mm and a couple of adjacent puncture stones present along its superior margin. : Nephrolithiasis with dislodgment of nephostomy tube - acute Assessment/Plan: on 09/29/2016 he underwent a cystoscopy, laser lithotripsy of bladder calculi and an attempted L ureteral catheterization. Today had a reinsert of a L nephrostomy tube by IR, urine clear/yellow UTI - acute Assessment/Plan: Urine cultures show Pseudomonas Aeruginosa On Cefepime Hcl 1gram BID, renal dosed ID following WBC trending down, Blood cultures ordered yesterday when WBC increased to 16 BC pending Chronic Kidney Disease Assessment/Plan: Continue IV hydration, and monitor renal function Renal following. Cardiology: CAD s/p MT Assessment/Plan: On ASA and Plavix daily As per Cardiology, resume ASA and Plavix when no further invasive procedures to be done. Will restart ASA and Plavix in a.m. Hypertension - chronic Assessment/Plan: On Metoprolol 25mg daily Monitor BPs and up titrate meds as needed. Low hmg/hct - low stable since admission. asymptomatic If falls <8 will transfuse. Pulmonary: Left lung atelectasis - chronic Assessment/Plan: Left lung consolidation Encouraged to use incentive spirometer Oxygen 2 liters as needed F.E.N. Fluids: fluids d/c secondary to congestion, tolerating PO Electrolytes: BMP daily, monitor h/h Nutrition: low sodium diet Prophylaxis: DVT:Heparin to restart tonight GI: Colace, Miralax Disposition: Requires inpatient hospitalization. full code. Visit type - Emergency Visit Emergency Visit: Yes ED Registration Date: 09/26/16 Care time: The patient presented to the Emergency Department on the above date and was hospitalized for further evaluation of their emergent condition. - New Patient This patient is new to me today: No - Critical Care Critical Care patient: No - Discharge Referral Referred to [facility] No
[2016-10-02] MEDS ORDERED: PT OWN MED DRAWER 7, Y5N ONE (21:31)
[2016-10-02] MEDS: HEPARIN NA (PORCINE) 5,000 UNITS/ML 1ML VIAL SQ SCH (21:39)
[2016-10-02] MEDS: ATORVASTATIN CA 20 MG TABLET (FP) PO SCH (21:40)
[2016-10-02] MEDS ORDERED: morphine CARPU-JECT 2 MG/1 ML DISP.SYRIN IVPUSH PRN (22:52)
[2016-10-03] MEDS: HEPARIN NA (PORCINE) 5,000 UNITS/ML 1ML VIAL SQ SCH (06:29)
[2016-10-03] MEDS: ALBUTEROL SO4 2.5/IPRATROPIUM 0.5 INH SOL 3 ML VIAL.NEB. NEB SCH ×2 (06:58→11:30)
[2016-10-03 07:26] LABS: MCH 30.9 pg (25.7-33.7); MCHC 32.5 g/dl (32.0-35.9); MEAN CELL VOLUME 94.8 fl (80-96); PLATELET COUNT 398 K/MM3 (134-434); RDW 16.2 % (11.9-15.9); WHITE BLOOD COUNT 12.1 K/mm3 (4.0-10.0)
[2016-10-03 07:39] LABS: ALBUMIN 2.2 g/dl (3.4-5.0); BILIRUBIN,TOTAL 0.2 mg/dL (0.2-1.0); CALCIUM 8.9 mg/dL (8.5-10.1); CREATININE 1.4 mg/dL (0.7-1.3); TOT PROT 5.7 g/dl (6.4-8.2)
[2016-10-03 09:06] LABS: METAMYELOCYTE 1 % (0-2)
--- NOTE | 2016-10-03 09:07 | PN ---
Physical Exam: SUBJECTIVE: Patient seen and examined OBJECTIVE: Vital Signs Period Temp Pulse Resp BP Sys/Tomlinson Pulse Ox Last 24 Hr 98.0 F-98.4 F 86-98 14-20 114-166/57-80 96-100 GENERAL: The patient is awake, alert, and fully oriented, in no acute distress. HEAD: Normal with no signs of trauma. EYES: PERRL, extraocular movements intact, sclera anicteric, conjunctiva clear. No ptosis. ENT: Ears normal, nares patent, oropharynx clear without exudates, moist mucous membranes. NECK: Trachea midline, full range of motion, supple. LUNGS: Breath sounds equal, clear to auscultation bilaterally, no wheezes, no crackles, no accessory muscle use. HEART: Regular rate and rhythm, S1, S2 without murmur, rub or gallop. ABDOMEN: Soft, nontender, nondistended, normoactive bowel sounds, no guarding, no rebound, no hepatosplenomegaly, no masses. EXTREMITIES: 2+ pulses, warm, well-perfused, no edema. NEUROLOGICAL: Cranial nerves II through XII grossly intact. Normal speech, gait not observed. PSYCH: Normal mood, normal affect. SKIN: Warm, dry, normal turgor, no rashes or lesions noted Laboratory Results - last 24 hr 10/02/16 10/03/16 10/03/16 06:00 06:00 06:00 WBC 12.1 H RBC 2.80 L Hgb 8.6 L Hct 26.6 L MCV 94.8 MCHC 32.5 RDW 16.2 H Plt Count 398 MPV 8.0 Neutrophils % 75.0 Y Lymphocytes % 7.0 L D Y Monocytes % 11.0 H Eosinophils % 5.0 H D Basophils % 1.0 Band Neutrophils 1.0 D Differential Comment Manual diff done Hypochromic-Microcytic 1+ Anisocytosis 2+ Microcytosis 1+ Macrocytosis 1+ Sodium 142 Potassium 4.1 Chloride 106 Carbon Dioxide 27 Anion Gap 9 BUN 24 H Creatinine 1.4 H Creat Clearance w eGFR 50.10 Random Glucose 90 Calcium 8.9 Total Bilirubin 0.2 AST 21 D ALT 34 D Alkaline Phosphatase 70 Total Protein 5.7 L Albumin 2.2 L Active Medications Generic Name Dose Route Start Last Admin Trade Name Freq PRN Reason Stop Dose Admin Al Hydroxide/Mg Hydroxide 30 ml 09/26/16 18:06 Mylanta Oral Suspension - PO Q6H PRN PAIN Albuterol Sulfate 1 amp 09/27/16 14:35 10/01/16 10:40 Ventolin 0.083% Nebulizer Soln - NEB 1 amp Q4H PRN Administration SHORT OF BREATH/WHEEZING Albuterol/Ipratropium 1 amp 10/02/16 12:00 10/03/16 06:58 Duoneb - NEB Not Given QIDR NASIR Atorvastatin Calcium 20 mg 09/26/16 22:00 10/02/16 21:40 Lipitor - PO 20 mg HS NASIR Administration Clonazepam 1 mg 09/27/16 10:00 10/02/16 21:40 Klonopin - PO 1 mg BID NASIR Administration Finasteride 5 mg 09/27/16 10:00 10/02/16 10:21 Proscar - PO 5 mg DAILY [facility] Administration Heparin Sodium (Porcine) 5,000 unit 10/02/16 22:00 10/03/16 06:29 Heparin - SQ 5,000 unit TID NASIR Administration Cefepime HCl 1 gm/ Dextrose 100 mls @ 200 mls/hr 09/27/16 22:00 10/02/16 21:39 IVPB 200 mls/hr BID [facility]IR Administration Metoprolol Succinate 25 mg 09/27/16 13:30 10/02/16 10:21 Toprol Xl - PO 25 mg DAILY [facility] Administration Morphine Sulfate 2 mg 10/02/16 22:52 Morphine Injection - IVPUSH Q4H PRN PAIN Pantoprazole Sodium 40 mg 10/01/16 10:00 10/02/16 10:21 Protonix - PO 40 mg DAILY [facility] Administration Tamsulosin HCl 0.4 mg 09/26/16 22:00 10/02/16 21:39 Flomax - PO 0.4 mg BID [facility] Administration ASSESSMENT/PLAN:
--- NOTE | 2016-10-03 10:27 | DS ---
Physical Exam: SUBJECTIVE: Patient seen and examined. States he feels well, denies any pain. Denies any shortness of breath but does wear his oxygen during the night. I reached out to patient's Urologist @ [place], Dr. Garcia ([phone]) and updated MD on pt's inpatient stay. Dr. Garcia asked pt to call him for an appointment follow up within 1 to 2 weeks. Patient in agreement and agreed to call Dr. Garcia. OBJECTIVE: Vital Signs Period Temp Pulse Resp BP Sys/Tomlinson Pulse Ox Last 24 Hr 98.1 F-98.4 F 86-95 14-20 114-166/57-79 96-100 PHYSICAL EXAM GENERAL: The patient is awake, alert, and fully oriented, in no acute distress. HEAD: Normal with no signs of trauma. EYES: PERRL, extraocular movements intact, sclera anicteric, conjunctiva clear. No ptosis. ENT: Ears normal, nares patent, oropharynx clear without exudates, moist mucous membranes. NECK: Trachea midline, full range of motion, supple. LUNGS: Left lung, diminished at the base, otherwise clear. Right lung clear to auscultation HEART: Regular rate and rhythm ABDOMEN: see above EXTREMITIES: 2+ pulses, warm, well-perfused, no edema. NEUROLOGICAL: Normal speech, gait not observed. PSYCH: Normal mood, normal affect. SKIN: Warm, dry, normal turgor, no rashes or lesions noted LABS Laboratory Results - last 24 hr 10/03/16 10/03/16 06:00 06:00 WBC 12.1 H RBC 2.80 L Hgb 8.6 L Hct 26.6 L MCV 94.8 MCHC 32.5 RDW 16.2 H Plt Count 398 MPV 8.0 Neutrophils % 65.0 Lymphocytes % 16.0 D Monocytes % 10.0 Eosinophils % 4.0 Basophils % 2.0 Metamyelocytes 1 D Myelocytes 1 D Differential Comment Manual diff done Sodium 142 Potassium 4.1 Chloride 106 Carbon Dioxide 27 Anion Gap 9 BUN 24 H Creatinine 1.4 H Creat Clearance w eGFR 50.10 Random Glucose 90 Calcium 8.9 Total Bilirubin 0.2 AST 21 D ALT 34 D Alkaline Phosphatase 70 Total Protein 5.7 L Albumin 2.2 L HOSPITAL COURSE: Date of Admission:09/26/16 Date of Discharge: 10/03/16 ASSESSMENT/PLAN: Patient is a 71 year [facility] male [facility] ([facility]) with a past medical history of pre-diabetes, TURP, partial thyroidectomy and perforated viscous. He was [facility] after his left nephrostomy tube fell out upon awakening. On 07/2016 he was admitted for septic shock secondary to a perforated viscous. At that time he was also found to be in renal failure and underwent a left percutanous nephrostomy for 1cm obstructing L UPJ calculus and L hydronephrosis. He was scheduled for a follow up with his urologist @ [place], but has not yet seen his urologist. On 09/29/2016 he underwent a cystoscopy, laser lithotripsy of bladder calculi and attempted L ureteral catheterization. Yesterday he underwent a left nephrostomy tube placement, draining clear yellow urine. No overnight events. Imaging: Abdominal CT 09/27/2016 shows multiple non obstructing left renal stones and a moderate left renal hydronephrosis with an obstructing stone in the proximal left ureter measuring 10 x 9 mm and a couple of adjacent puncture stones present along its superior margin. : Nephrolithiasis with dislodgment of nephostomy tube - left nephrostomy tube replaced yesterday by IR - resolved Assessment/Plan: draining clear yellow urine UTI - resolved Assessment/Plan: Urine cultures show Pseudomonas Aeruginosa As per ID, can d/c antibiotics, no further oral antibiotics necessary WBC trending down, afebrile, vitals stable, non toxic appearing Repeat UC pending, preliminary read noted Blood cultures pending Chronic Kidney Disease Assessment/Plan: Renal functioning improved, will need close outpatient followup. Renal following. Cardiology: CAD s/p MD - history of MD Assessment/Plan: On ASA and Plavix daily - ASA daily, Plavix MWF will give ASA today, Plavix start tomorrow. Hypertension - chronic Assessment/Plan: On Metoprolol 25mg Monitor BPs and up titrate meds as needed. Low hmg/hct - low stable since admission. asymptomatic If falls <8 will transfuse Pulmonary: Left lung atelectasis - chronic Assessment/Plan: Left lung consolidation Encouraged to use incentive spirometer Oxygen 2 liters as needed which he uses at the facility Disposition: Requires inpatient hospitalization. full code. Minutes to complete discharge: 60 Discharge Summary Reason For Visit: URINARY TRACT INFECTON Current Active Problems COPD (chronic obstructive pulmonary disease) (Acute) Calculi, ureter (Acute) Shaw catheter in place prior to arrival (Acute) Nephrolithiasis (Acute) UTI (urinary tract infection) (Acute) - Instructions Referrals: Marvin Pack MD [Staff Physician] - Disposition: [facility] FACILITY - Home Medications Comprehensive Discharge Medication List: Ambulatory Orders Aspirin [Baby Aspirin] 81 mg PO DAILY 11/09/11 Atorvastatin Ca [Lipitor] 20 mg PO HS 11/09/11 Carvedilol [Coreg] 12.5 mg PO BID 11/09/11 Tamsulosin HCl [Flomax -] 0.4 mg PO BID 11/09/11 Finasteride [Proscar -] 5 mg PO DAILY 07/29/16 Tiotropium [place] [Spiriva] 1 inh PO DAILY 07/30/16 Albuterol Sulfate 0.5% [Ventolin 0.5% Nebulizing Soln. -] 1 amp NEB QIDR amp Bacitracin - [Bacitracin Topical Ointment -] 1 applic TP BID #1 applic 08/25/16 Clopidogrel Bisulfate [Plavix -] 75 mg PO ASDIR #0 08/25/16 Docusate Sodium [Colace -] 100 mg PO DAILY capsule 08/25/16 Acetaminophen [Pain Relief] 650 mg PO QID PRN 09/26/16 Clonazepam [Klonopin -] 1 mg PO BID MDD 2mg 09/26/16 Mag Hydrox/Al Hydrox/Simeth [Mylanta Oral Suspension -] 30 ml PO Q6H PRN Piperacillin Sodium/Tazobactam [Zosyn 3.375 Gram Vial] 3.375 gm IV ASDIR Albuterol 2.5/Ipratropium 0.5 [Duoneb -] 1 amp NEB QIDR amp 10/03/16 This patient is new to me today: No Emergency Visit: Yes ED Registration Date: 09/26/16 Care time: The patient presented to the Emergency Department on the above date and was hospitalized for further evaluation of their emergent condition. Critical Care patient: No - Discharge Referral Referred to [facility] Med P.C.: No
[2016-10-03] MEDS: METOPROLOL SUCCINATE 25 MG TAB.SR.24H (FP) PO SCH (10:29)
[2016-10-03] MEDS: TAMSULOSIN HCL 0.4 MG CAP.ER.24H (FP) PO SCH (10:29)
[2016-10-03] MEDS: FINASTERIDE 5 MG TABLET (FP) PO SCH (10:29)
[2016-10-03] MEDS: PANTOPRAZOLE 40 MG TABLET (FP) PO SCH (10:29)
[2016-10-03] MEDS: clonazePAM 0.5 MG TABLET PO SCH (10:29)
[2016-10-03] MEDS: CEFEPIME 1 GM in DEXTROSE 5%-WATER - 100 ML IVPB SCH (10:29)
[2016-10-03] MEDS ORDERED: ASPIRIN 81 MG CHEWABLE TABLETS PO SCH (10:30)
--- NOTE | 2016-10-03 10:39 | PN ---
Progress Note (short form) - Note Progress Note: PULMONARY Breathing much improved today. Tolerated procedures yesterday without incident. No fevers or chills. Last Vital Signs Temp Pulse Resp BP Pulse Ox 98.3 F 86 20 140/69 96 10/03/16 05:49 10/03/16 05:49 10/03/16 05:49 10/03/16 05:49 10/02/16 21:00 Gen: NAD at rest Heart: RRR Lung: decreased breath sounds left base, no wheezes, rhonchi Abd: soft, nontender EXt: no edema CBC, BMP 10/03/16 06:00 10/03/16 06:00 Active Medications Al Hydroxide/Mg Hydroxide (Mylanta Oral Suspension -) 30 ml PO Q6H PRN PRN Reason: PAIN Albuterol Sulfate (Ventolin 0.083% Nebulizer Soln -) 1 amp NEB Q4H PRN PRN Reason: SHORT OF BREATH/WHEEZING Last Admin: 10/01/16 10:40 Dose: 1 amp Albuterol/Ipratropium (Duoneb -) 1 amp NEB QIDR [facility] Last Admin: 10/03/16 06:58 Dose: Not Given Aspirin (Asa -) 81 mg PO DAILY [facility] Atorvastatin Calcium (Lipitor -) 20 mg PO HS [facility] Last Admin: 10/02/16 21:40 Dose: 20 mg Clonazepam (Klonopin -) 1 mg PO BID [facility] Last Admin: 10/03/16 10:29 Dose: 1 mg Finasteride (Proscar -) 5 mg PO DAILY [facility] Last Admin: 10/03/16 10:29 Dose: 5 mg Heparin Sodium (Porcine) (Heparin -) 5,000 unit SQ TID [facility] Last Admin: 10/03/16 06:29 Dose: 5,000 unit Cefepime HCl 1 gm/ Dextrose 100 mls @ 200 mls/hr IVPB BID [facility] Last Admin: 10/03/16 10:29 Dose: 200 mls/hr Metoprolol Succinate (Toprol Xl -) 25 mg PO DAILY [facility] Last Admin: 10/03/16 10:29 Dose: 25 mg Morphine Sulfate (Morphine Injection -) 2 mg IVPUSH Q4H PRN PRN Reason: PAIN Pantoprazole Sodium (Protonix -) 40 mg PO DAILY [facility] Last Admin: 10/03/16 10:29 Dose: 40 mg Tamsulosin HCl (Flomax -) 0.4 mg PO BID NAS[facility] Last Admin: 10/03/16 10:29 Dose: 0.4 mg A/P Dislodged Nephrostomy UTI Left Atelectasis COPD CAD CKD HTN - continue inhaled bronchodilators - O2 as needed - complete antibiotics per ID - incentive spirometry - DVT prophylaxis
--- NOTE | 2016-10-03 11:54 | PATH ---
Surgical Pathology Report Patient Name: NEDA CONN Med. Rec. #: [id number] /Age/Gender: 1945 (Age: 71) / M Account: [id number] Location: [facility] MED/SURG Taken: 09/29/2016 Received: 10/02/2016 Reported: 10/03/2016 Physicians: Viral Ferro M.D. Specimen(s) Received BLADDER CALCULI Clinical History Urinary tract infection Final Diagnosis BLADDER CALCULI, EXTRACTION: CALCULI SUBMITTED FOR CHEMICAL ANALYSIS (gross only). Electronically Signed Derian Block M.D. Gross Description Received fresh, labeled "bladder calculi," are 3 lopez, irregular calculi averaging 0.5 cm in greatest dimension. The specimen is sent for chemical analysis. 10/02/201610/02/2016
[2016-10-03 13:53] VITALS: BP 107/55; PULSE 98; TEMP 98
[2016-10-09 11:15] LABS: COLOR Brown (.)
== END 2016-10-03 13:44 | DRG 699 ==
LOC: JER 11:50 → JERBED 16:45 → J7W 18:20
PROVIDERS: ADMIT Internal Medicine; ATTEND Nurse Practitioner Family
PROC: 0TCB8ZZ Extirpation of Matter from Bladder, Via Natural or Artificial Opening Endoscopic (ICD-10-PCS; principal; 2016-09-26)
PROC: BT1F1ZZ Fluoroscopy of Left Kidney, Ureter and Bladder using Low Osmolar Contrast (ICD-10-PCS; 2016-09-26)
PROC: 0TJ Urinary System, Inspection (ICD-10-PCS; 2016-09-26)
PROC: 3E0F7GC Introduction of Other Therapeutic Substance into Respiratory Tract, Via Natural or Artificial Opening (ICD-10-PCS; 2016-09-26)
PROC: 0T9130Z Drainage of Left Kidney with Drainage Device, Percutaneous Approach (ICD-10-PCS; 2016-09-28)
DX: N99.522 Malfunction of incontinent external stoma of urinary tract (principal); N39.0 Urinary tract infection, site not specified; N13.8 Other obstructive and reflux uropathy; J98.11 Atelectasis; N20.1 Calculus of ureter; J90 Pleural effusion, not elsewhere classified; T83.022A Displacement of nephrostomy catheter, initial encounter; Y83.8 Other surgical procedures as the cause of abnormal reaction of the patient, or of later complication, without mention of misadventure at the time of the procedure; R31.9 Hematuria, unspecified; B96.5 Pseudomonas (aeruginosa) (mallei) (pseudomallei) as the cause of diseases classified elsewhere; E78.00 Pure hypercholesterolemia, unspecified; I25.10 Atherosclerotic heart disease of native coronary artery without angina pectoris; Z95.5 Presence of coronary angioplasty implant and graft; Z87.891 Personal history of nicotine dependence; N40.1 Benign prostatic hyperplasia with lower urinary tract symptoms; I25.2 Old myocardial infarction; I12.9 Hypertensive chronic kidney disease with stage 1 through stage 4 chronic kidney disease, or unspecified chronic kidney disease; N18.9 Chronic kidney disease, unspecified; Z85.46 Personal history of malignant neoplasm of prostate; Z85.118 Personal history of other malignant neoplasm of bronchus and lung; R26.81 Unsteadiness on feet; N21.0 Calculus in bladder; J44.9 Chronic obstructive pulmonary disease, unspecified
CPT/HCPCS: 36415; 50432; 71010-TC; 74176-TC; 76000-TC; 76098-TC; 76775-TC; 76937-TC; 80048; 80053; 81003; 81015; 82360; 83735; 84100; 85025; 85610; 86850; 86900; 86901; 87040; 87077; 87086; 87186; 87899; 88300-TC; 93005; 93010; 94010; 94640; 94760; 97116-GP; 97162-PG; 99282-25; A4358; C1729; C1769; J1644

== ENCOUNTER 2016-10-07 13:29 | Inpatient (IN) | payer OTHER ==
[2016-10-07 13:56] VITALS: BMI 23.8
--- NOTE | 2016-10-07 14:42 | PDOC ---
History of Present Illness - General History Source: Patient, [facility] Records, Old Records Exam Limitations: No Limitations - History of Present Illness Initial Comments: 10/07/16 15:57 The patient is a 71 year old male brought via EMS from [facility], with a significant past medical history of Lung CA s/p lobectomy, TURP, HTN, HLD , MRSA and partial thyroidectomy, who presents to the emergency department with hematuria in his colostomy bag since 3am this morning. The patient currently has a 10 mm obstructing stone. As per the long-term the patient needs to have a PICC line placed, and has not received antibiotics for the past 4 days. The patient is at [facility] for physical therapy as he was recently hospitalized for 30 days. The patient denies chest pain, shortness of breath, headache and dizziness. Denies fever, chills, nausea, vomit, diarrhea and constipation. Denies dysuria, frequency and urgency Allergies: None Past surgical history: Nephrostomy from left kidney, partial thyroidectomy, lobectomy Social history: No alcohol, tobacco or drug use reported PMD - Dr. Sean Bowers <Isauro Mcrae - Last Filed: 10/07/16 16:24> <Sachin Eddy - Last Filed: 10/07/16 17:03> - General Chief Complaint: Hematuria Stated Complaint: BLOOD IN URINE Time Seen by Provider: 10/07/16 13:44 Past History <Isauro Mcrae - Last Filed: 10/07/16 16:24> - Past Medical History Anemia: No Asthma: No Cancer: Yes Cardiac Disorders: Yes (lung cancer) CVA: No COPD: No CHF: No Dementia: No Diabetes: No GI Disorders: No Disorders: Yes (TURP 2008) HTN: Yes Hypercholesterolemia: Yes Liver Disease: No Seizures: No Thyroid Disease: Yes (partial throidectomy) - Surgical History Abdominal Surgery: No Appendectomy: No Cardiac Surgery: No Cholecystectomy: No Lung Surgery: Yes Neurologic Surgery: No - Immunization History Td Vaccination: Yes (UNKNOWN) Immunization Up to Date: Yes - Psycho/Social/Smoking Cessation Hx Anxiety: No Suicidal Ideation: No Smoking Status: Yes Smoking History: Former smoker Years of Tobacco Use: 40 Have you smoked in the past 12 months: No Number of Cigarettes Smoked Daily: 10 If you are a former smoker, when did you quit?: 6 months ago Cigars Per Day: 0 Information on smoking cessation initiated: No 'Breaking Loose' booklet given: 02/17/12 Hx Alcohol Use: No Drug/Substance Use Hx: No Substance Use Type: None Hx Substance Use Treatment: No <Surjit,Boris - Last Filed: 10/07/16 17:03> - Past Medical History Allergies/Adverse Reactions: Allergies Allergy/AdvReac Type Severity Reaction Status Date / Time No Known Allergies Allergy Verified 10/07/16 13:55 Home Medications: Ambulatory Orders Aspirin [Baby Aspirin] 81 mg PO DAILY 11/09/11 Atorvastatin Ca [Lipitor] 20 mg PO HS 11/09/11 Tamsulosin HCl [Flomax -] 0.4 mg PO BID 11/09/11 Finasteride [Proscar -] 5 mg PO DAILY 07/29/16 Tiotropium [place] [Spiriva] 1 inh PO DAILY 07/30/16 Albuterol Sulfate 0.5% [Ventolin 0.5% Nebulizing Soln. -] 1 amp [place] QIDR amp Bacitracin - [Bacitracin Topical Ointment -] 1 applic TP BID #1 applic 08/25/16 Clopidogrel Bisulfate [Plavix -] 75 mg PO ASDIR #0 08/25/16 Docusate Sodium [Colace -] 100 mg PO DAILY capsule 08/25/16 Acetaminophen [Pain Relief] 650 mg PO QID PRN 09/26/16 Clonazepam [Klonopin -] 1 mg PO BID MDD 2mg 09/26/16 Mag Hydrox/Al Hydrox/Simeth [Mylanta Oral Suspension -] 30 ml PO Q6H PRN Piperacillin Sodium/Tazobactam [Zosyn 3.375 Gram Vial] 3.375 gm IV ASDIR Albuterol 2.5/Ipratropium 0.5 [Duoneb -] 1 amp [facility] QIDR amp 10/03/16 Metoprolol Succinate [Toprol Xl] 25 mg PO DAILY #30 tab.er.24h 10/03/16 Review of Systems - Review of Systems Able to Perform ROS?: Yes Comments:: 10/07/16 15:57 CONSTITUTIONAL: No fever, no chills, no fatigue EYES: No visual changes ENT: No ear pain, no sore throat CARDIOVASCULAR: No chest pain, no palpitations RESPIRATORY: No cough, no SOB GI: No abdominal pain, no nausea, no vomiting, no constipation, no diarrhea GENITOURINARY: +Hematuria. No dysuria, no frequency MUSKULOSKELETAL: No backpain, no joint pain, no myalgias SKIN: No rash NEURO: No headache <Isauro Mcrae - Last Filed: 10/07/16 16:24> *Physical Exam - Vital Signs Last Vital Signs Temp Pulse Resp BP Pulse Ox 98.7 F 99 H 20 117/80 100 10/07/16 13:50 10/07/16 13:50 10/07/16 13:50 10/07/16 13:50 10/07/16 13:50 - Physical Exam Comments: 10/07/16 15:58 CONSTITUTIONAL: Well-appearing; well-nourished; in no apparent distress HEAD: Normocephalic; atraumatic EYES: PERRL; EOM intact, conjuctiva pink ENMT: External appears normal; normal oropharynx. Moist mocusa NECK: Supple; non-tender; no cervical lymphadenopathy CARD: Normal S1, S2; no murmurs, rubs, or gallops RESP: Normal chest excursion with respiration; breath sounds clear and equal bilaterally; no wheezes, rhonchi, or rales ABD: Soft, non-distended; non-tender; no palpable organomegaly, no palpable hernias : No CVA tenderness bilaterally left nephrostomy tube in place EXT: Normal ROM in all four extremities; non-tender to palpation; distal pulses intact SKIN: Warm, dry, no rash NEURO: No focal neurological deficiencies. <Isauro Mcrae - Last Filed: 10/07/16 16:24> - Vital Signs Last Vital Signs Temp Pulse Resp BP Pulse Ox 98.7 F 99 H 20 117/80 100 10/07/16 13:50 10/07/16 13:50 10/07/16 13:50 10/07/16 13:50 10/07/16 13:50 <Sachin Eddy - Last Filed: 10/07/16 17:03> Heart Score/ECG Review #1 ECG reviewed & interpreted by me at: 14:48 10/07/16 13:43 Ventricular rate: 99 bpm Normal sinus rhythm <Isauro Mcrae - Last Filed: 10/07/16 16:24> ED Treatment Course - LABORATORY CBC & Chemistry Diagram: 10/07/16 14:42 10/07/16 14:42 <Isauro Mcrae - Last Filed: 10/07/16 16:24> - LABORATORY CBC & Chemistry Diagram: 10/07/16 14:42 10/07/16 14:42 <Sachin Eddy - Last Filed: 10/07/16 17:03> Medical Decision Making - Medical Decision Making 10/07/16 17:00 Patient is a 71-year-old male with multiple comorbidities, history of a large, obstructing left proximal ureteral stone with stricture, with left nephrostomy who was referred from [facility] for gross hematuria within the nephrostomy tube as well as need for PICC line for administration of Zosyn which the patient has not received over the past 4 days. Urine within the Shaw catheter bag is clear without evidence of hematuria. In the ER, patient is awake and alert, afebrile, nontoxic appearing. Nephrostomy tube reveals clear dark red colored urine. Will obtain CT of abdomen and pelvis to evaluate for displaced nephrostomy. Will administer IV Zosyn in the ER. Will admit for PICC line placement. <Sachin Eddy - Last Filed: 10/07/16 17:03> *DC/Admit/Observation/Transfer - Attestations Scribe Attestion: 10/07/16 15:58 Documentation prepared by Isauro Mcrae, acting as medical management specialist for Sachin Eddy MD. <Isauro Mcrae - Last Filed: 10/07/16 16:24> - Discharge Dispostion Admit: Yes - Attestations Physician Attestion: 10/07/16 17:00 The documentation was prepared by the scribe under my direct supervision. I have reviewed the documentation which correctly represents the findings, medical decision-making and critical action taken by me. <Sachin Eddy - Last Filed: 10/07/16 17:03> Diagnosis at time of Disposition: Calculi, ureter, Hematuria UTI (urinary tract infection) Qualifiers: Urinary tract infection type: acute cystitis Hematuria presence: with hematuria Qualified Code(s): N30.01 - Acute cystitis with hematuria - Referrals Referrals: Sean Bowers MD [Primary Care Provider] -
[2016-10-07] MEDS ORDERED: PIPERACILLIN/TAZOB 2.25 GM 2.25 GM in DEXTROSE 5%-WATER - 50 ML IVPB ONE (15:19)
[2016-10-07 15:28] LABS: MCH 30.9 pg (25.7-33.7); MCHC 32.9 g/dl (32.0-35.9); MEAN CELL VOLUME 94.1 fl (80-96); MEAN PLT VOLUME 7.8 fl (7.5-11.1); PLATELET COUNT 534 K/MM3 (134-434); RDW 16.5 % (11.9-15.9); WHITE BLOOD COUNT 10.6 K/mm3 (4.0-10.0)
[2016-10-07 15:48] LABS: URINE APPEARANCE SL CLOUDY; URINE COLOR RED; URINE GLUCOSE (UA) NEGATIVE (NEGATIVE)
[2016-10-07 15:49] LABS: URINE BILIRUBIN NEGATIVE (NEGATIVE); URINE BLOOD 3 (NEGATIVE); URINE KETONE NEGATIVE (NEGATIVE); URINE LEUK ESTERASE 2+ (NEGATIVE); URINE NITRITE NEGATIVE (NEGATIVE); URINE PROTEIN 1+ (NEGATIVE); URINE UROBILINOGEN NORMAL E.U./dl (0.2-1.0)
[2016-10-07 15:50] LABS: URINE BACTERIA FEW /hpf (NONE SEEN); URINE RBC 755 /hpf (0-3); URINE WBC 70 /hpf (3-5)
[2016-10-07 15:59] LABS: INR 1.14 (0.82-1.09); PROTHROMBIN TIME (PATIENT) 12.6 SEC (9.98-11.88)
[2016-10-07 16:09] LABS: ALBUMIN 2.7 g/dl (3.4-5.0); BILIRUBIN,TOTAL 0.2 mg/dL (0.2-1.0); CALCIUM 9.7 mg/dL (8.5-10.1); CREATININE 1.2 mg/dL (0.7-1.3); TOT PROT 6.6 g/dl (6.4-8.2)
[2016-10-07 16:11] LABS: ANISOCYTOSIS 1+; HYPOCHROMIA 1+; PLATELET COMMENT2 NO CLOTTING DETECTED; PLATELET COMMENT3 FEW LARGE PLTS; PLATELET ESTIMATE INCREASED (NORMAL)
[2016-10-07] MEDS ORDERED: ALBUTEROL SO4 2.5/IPRATROPIUM 0.5 INH SOL 3 ML VIAL.NEB. NEB PRN (17:59)
[2016-10-07] MEDS ORDERED: ACETAMINOPHEN 325 MG TABLET (FP) PO PRN (17:59)
--- NOTE | 2016-10-07 18:15 | HP ---
Admitting History and Physical - Primary Care Physician PCP: Luis Armando Pichardo - Admission Chief Complaint: HEMATUREA/CYSTITIS History of Present Illness: The patient is a 71 year old male brought via EMS from [facility], with a significant past medical history of Lung CA s/p lobectomy, TURP, HTN, HLD , MRSA and partial thyroidectomy, who presents to the emergency department with hematuria in his colostomy bag since 3am this morning. The patient currently has a 10 mm obstructing stone. As per the senior living the patient needs to have a PICC line placed, and has not received antibiotics for the past 4 days. The patient is at [facility] for physical therapy as he was recently hospitalized for 30 days. The patient denies chest pain, shortness of breath, headache and dizziness. Denies fever, chills, nausea, vomit, diarrhea and constipation. Denies dysuria, frequency and urgency History Source: Patient, Medical Record - Past Medical History Cardiovascular: Yes: CAD (prior NSTEMI 2006 -> no cardiac cath or PCI at that time due to CKD), HTN, Hyperlipdemia Pulmonary: Yes: Cancer (H/O lung cancer s/p resection in 1996 at [facility]), COPD, Previously Intubated (07/2016) Hepatobiliary: Yes: Cholecystitis Renal/: Yes: Renal Failure, BPH, Renal Calculi, Other (Prostate cancer) Heme/Onc: Yes: Cancer ENT: Yes: Other - Past Surgical History Past Surgical History: Yes: Cholecystectomy, TURP - Smoking History Smoking history: Former smoker Have you smoked in the past 12 months: No Aproximately how many cigarettes per day: 10 If you are a former smoker, when did you quit?: 6 months ago - Alcohol/Substance Use Hx Alcohol Use: No History of Substance Use: reports: None - Social History History of Recent Travel: No Home Medications - Allergies Allergies/Adverse Reactions: Allergies Allergy/AdvReac Type Severity Reaction Status Date / Time No Known Allergies Allergy Verified 10/07/16 13:55 - Home Medications Home Medications: Ambulatory Orders Aspirin [Baby Aspirin] 81 mg PO DAILY 11/09/11 Atorvastatin Ca [Lipitor] 20 mg PO HS 11/09/11 Tamsulosin HCl [Flomax -] 0.4 mg PO BID 11/09/11 Finasteride [Proscar -] 5 mg PO DAILY 07/29/16 Tiotropium [place] [Spiriva] 1 inh PO DAILY 07/30/16 Albuterol Sulfate 0.5% [Ventolin 0.5% Nebulizing Soln. -] [facility] Bacitracin - [Bacitracin Topical Ointment -] 1 applic TP BID #1 applic 08/25/16 Clopidogrel Bisulfate [Plavix -] 75 mg PO ASDIR #0 08/25/16 Docusate Sodium [Colace -] 100 mg PO DAILY capsule 08/25/16 Acetaminophen [Pain Relief] 650 mg PO QID PRN 09/26/16 Clonazepam [Klonopin -] 1 mg PO BID MDD 2mg 09/26/16 Mag Hydrox/Al Hydrox/Simeth [Mylanta Oral Suspension -] 30 ml PO Q6H PRN Piperacillin Sodium/Tazobactam [Zosyn 3.375 Gram Vial] 3.375 gm IV ASDIR Albuterol 2.5/Ipratropium 0.5 [Duoneb -] [facility] 10/03/16 Metoprolol Succinate [Toprol Xl] 25 mg PO DAILY #30 tab.er.24h 10/03/16 Family Disease History - Family Disease History Family Disease History: Other: Father ( from CVA at age 70) Review of Systems - Review of Systems Constitutional: reports: Loss of Appetite, Weakness Eyes: reports: No Symptoms HENT: reports: No Symptoms Neck: reports: No Symptoms Cardiovascular: reports: No Symptoms Respiratory: reports: No Symptoms Gastrointestinal: reports: No Symptoms Genitourinary: reports: Discharge, Hematuria Musculoskeletal: reports: Muscle Weakness Integumentary: reports: No Symptoms Neurological: reports: Pre-Existing Deficit, Weakness Endocrine: reports: No Symptoms Hematology/Lymphatic: reports: No Symptoms Physical Examination Vital Signs: Vital Signs Temperature 98.7 F 10/07/16 13:50 Pulse Rate 99 H 10/07/16 13:50 Respiratory Rate 20 10/07/16 13:50 Blood Pressure 117/80 10/07/16 13:50 O2 Sat by Pulse Oximetry (%) 100 10/07/16 13:50 Constitutional: Yes: Mild Distress Eyes: Yes: WNL HENT: Yes: WNL Neck: Yes: WNL Cardiovascular: Yes: WNL Respiratory: Yes: WNL Gastrointestinal: Yes: WNL Renal/: Yes: Other (NEPHROSTOMY TUBE WITH RED BLOODY URINE) Musculoskeletal: Yes: Muscle Weakness Extremities: Yes: Other Edema: Yes Integumentary: Yes: WNL Wound/Incision: Yes: Clean/Dry Neurological: Yes: Pre-Existing Deficit ...Motor Strength: LLE, RLE Psychiatric: Yes: Other Imaging - Results Cat Scan: Report Reviewed Problem List - Problems (1) Calculi, ureter Code(s): N20.1 - CALCULUS OF URETER (2) Hematuria Code(s): R31.9 - HEMATURIA, UNSPECIFIED (3) UTI (urinary tract infection) Code(s): N39.0 - URINARY TRACT INFECTION, SITE NOT SPECIFIED Qualifiers: Urinary tract infection type: acute cystitis Hematuria presence: with hematuria Qualified Code(s): N30.01 - Acute cystitis with hematuria (4) Acute kidney injury Code(s): N17.9 - ACUTE KIDNEY FAILURE, UNSPECIFIED (5) COPD (chronic obstructive pulmonary disease) Code(s): J44.9 - CHRONIC OBSTRUCTIVE PULMONARY DISEASE, UNSPECIFIED (6) HTN (hypertension) Code(s): I10 - ESSENTIAL (PRIMARY) HYPERTENSION Assessment/Plan CT ABDOMEN CHECK PLACEMENT OF NEPHROSTOMY TUBE ID CONSULT IR DR BANKS FOR PICC LINE AND NEPHROSTOMY TUBE ADJUSTMENT IV ZOSYN CHECK CULTURES PAIN CONTROL
[2016-10-07] MEDS ORDERED: PICC LINE 8 ML FLUSH PROTOCOL IVPUSH PRN (18:16)
[2016-10-07] MEDS ORDERED: DOCUSATE SODIUM 100 MG CAPSULE (FP) PO ONE (22:22)
[2016-10-07] MEDS ORDERED: TAMSULOSIN HCL 0.4 MG CAP.ER.24H (FP) ONE (22:22)
[2016-10-07] MEDS: DOCUSATE SODIUM 100 MG CAPSULE (FP) PO SCH (22:27)
[2016-10-07] MEDS: TAMSULOSIN HCL 0.4 MG CAP.ER.24H (FP) PO SCH (22:27)
[2016-10-07] MEDS ORDERED: clonazePAM 0.5 MG TABLET ONE (22:29)
[2016-10-07] MEDS: clonazePAM 0.5 MG TABLET PO PRN (22:35)
[2016-10-08] MEDS: ACLIDINIUM BROMIDE 400 MCG/INH AERO.POWD IH SCH ×3 (02:43→22:33)
[2016-10-08] MEDS: ATORVASTATIN CA 20 MG TABLET (FP) PO SCH ×2 (02:44→22:33)
[2016-10-08] MEDS ORDERED: PT OWN MED DRAWER 7, Y5N ONE ×3 (03:52→22:26)
[2016-10-08 07:53] LABS: MCH 30.4 pg (25.7-33.7); MCHC 32.4 g/dl (32.0-35.9); MEAN CELL VOLUME 93.8 fl (80-96); MEAN PLT VOLUME 7.6 fl (7.5-11.1); PLATELET COUNT 494 K/MM3 (134-434)
[2016-10-08 08:23] LABS: ALBUMIN 2.6 g/dl (3.4-5.0); CALCIUM 9.5 mg/dL (8.5-10.1); CREATININE 1.3 mg/dL (0.7-1.3)
[2016-10-08 08:25] LABS: BILIRUBIN,TOTAL 0.3 mg/dL (0.2-1.0); TOT PROT 6.3 g/dl (6.4-8.2)
--- NOTE | 2016-10-08 10:08 | PN ---
Progress Note, Physician Chief Complaint: ID Follow up note dictated HE is afebrile in no distress - Current Medication List Current Medications: Active Medications Acetaminophen (Tylenol -) 650 mg PO Q6H PRN PRN Reason: FEVER OR PAIN Aclidinium [place] (Tudorza -) 1 puff IH BID [facility] Last Admin: 10/08/16 02:43 Dose: Not Given Albuterol/Ipratropium (Duoneb -) 1 amp NEB Q6H PRN PRN Reason: SHORTNESS OF BREATH Atorvastatin Calcium (Lipitor -) 20 mg PO [facility] Last Admin: 10/08/16 02:44 Dose: Not Given Clonazepam (Klonopin -) 0.5 mg PO BID PRN PRN Reason: ANXIETY Last Admin: 10/07/16 22:35 Dose: 0.5 mg Docusate Sodium (Colace -) 300 mg PO [facility] Last Admin: 10/07/16 22:27 Dose: Not Given Finasteride (Proscar -) 5 mg PO DAILY [facility] IV Flush (Picc Line Flush) 8 ml IVPUSH PRN PRN PRN Reason: Protocol Metoprolol Succinate (Toprol Xl -) 25 mg PO DAILY [facility] Tamsulosin HCl (Flomax -) 0.4 mg PO BID [facility] Last Admin: 10/07/16 22:27 Dose: 0.4 mg - Objective Vital Signs: Vital Signs Temperature 98.3 F 10/08/16 06:00 Pulse Rate 90 10/08/16 06:00 Respiratory Rate 20 10/08/16 06:00 Blood Pressure 118/70 10/08/16 06:00 O2 Sat by Pulse Oximetry (%) 96 10/08/16 00:56 Genitourinary: Yes: Other (Nephrotomy clear urine) Labs: CBC, BMP 10/08/16 06:20 10/08/16 06:20 INR, PTT INR 1.14 (0.82-1.09) 10/07/16 14:42 Problem List - Problems (1) Calculi, ureter Code(s): N20.1 - CALCULUS OF URETER (2) UTI (urinary tract infection) Code(s): N39.0 - URINARY TRACT INFECTION, SITE NOT SPECIFIED Qualifiers: Urinary tract infection type: acute cystitis Hematuria presence: with hematuria Qualified Code(s): N30.01 - Acute cystitis with hematuria Assessment/Plan Microbiology 08/18/16 13:45 Urine - Urine Suprapubic Urine Culture - Final NO GROWTH OBTAINED 08/17/16 15:30 Blood - Peripheral Venous Blood Culture - Final NO GROWTH AFTER 5 DAYS INCUBATION 08/17/16 15:30 Blood - Peripheral Venous Blood Culture - Final NO GROWTH AFTER 5 DAYS INCUBATION 08/23/16 12:00 Bronchial Washings - Left Lower Lobe HAMLET Preparation - Preliminary 08/23/16 12:00 Bronchial Washings - Left Lower Lobe Fungal Culture - Preliminary 08/23/16 12:00 Bronchial Washings - Left Lower Lobe Bronchoalveolar Lavage Culture - Preliminary NORMAL RESPIRATORY TOMMIE 08/23/16 12:00 Bronchial Washings - Left Lower Lobe AFB Smear Concentration - Preliminary 08/23/16 12:00 Bronchial Washings - Left Lower Lobe Mycobacterial Culture - Preliminary Laboratory Tests 10/07/16 10/08/16 10/08/16 14:42 06:20 06:20 WBC 12.0 H RBC 3.06 L Hct 28.7 L Plt Count 494 H BUN 34 H Creatinine 1.3 Creat Clearance w eGFR 54.57 Ur Leukocyte Esterase 2+ H Assessment Hematuria from Nephrotomy has resolved. I see no evidence for infection Expect is urine culture will be positive Plan Do not feel he needs antibiotics at this time. Not sure why he was on IV antibiotics at [place] Got week of Cefepime here. Stop isolation Keith TELLO
[2016-10-08] MEDS: FINASTERIDE 5 MG TABLET (FP) PO SCH (11:00)
[2016-10-08] MEDS: TAMSULOSIN HCL 0.4 MG CAP.ER.24H (FP) PO SCH ×2 (11:00→22:33)
[2016-10-08] MEDS: METOPROLOL SUCCINATE 25 MG TAB.SR.24H (FP) PO SCH (11:00)
[2016-10-08] MEDS: clonazePAM 0.5 MG TABLET PO PRN (11:21)
--- NOTE | 2016-10-08 12:12 | PN ---
Progress Note, Physician Chief Complaint: AWAKE ALERT FEELS GOOD TODAY - Current Medication List Current Medications: Active Medications Acetaminophen (Tylenol -) 650 mg PO Q6H PRN PRN Reason: FEVER OR PAIN Aclidinium [place] (Tudorza -) 1 puff IH BID [facility] Last Admin: 10/08/16 11:00 Dose: 1 inh Albuterol/Ipratropium (Duoneb -) 1 amp NEB Q6H PRN PRN Reason: SHORTNESS OF BREATH Atorvastatin Calcium (Lipitor -) 20 mg PO [facility] Last Admin: 10/08/16 02:44 Dose: Not Given Clonazepam (Klonopin -) 0.5 mg PO BID PRN PRN Reason: ANXIETY Last Admin: 10/08/16 11:21 Dose: 0.5 mg Docusate Sodium (Colace -) 300 mg PO [facility] Last Admin: 10/07/16 22:27 Dose: Not Given Finasteride (Proscar -) 5 mg PO DAILY [facility] Last Admin: 10/08/16 11:00 Dose: 5 mg IV Flush (Picc Line Flush) 8 ml IVPUSH PRN PRN PRN Reason: Protocol Metoprolol Succinate (Toprol Xl -) 25 mg PO DAILY [facility] Last Admin: 10/08/16 11:00 Dose: 25 mg Tamsulosin HCl (Flomax -) 0.4 mg PO BID [facility] Last Admin: 10/08/16 11:00 Dose: 0.4 mg - Objective Vital Signs: Vital Signs Temperature 97.4 F L 10/08/16 10:00 Pulse Rate 93 H 10/08/16 10:00 Respiratory Rate 20 10/08/16 10:00 Blood Pressure 112/67 10/08/16 10:00 O2 Sat by Pulse Oximetry (%) 96 10/08/16 00:56 Constitutional: Yes: No Distress Eyes: Yes: WNL HENT: Yes: WNL Neck: Yes: WNL Cardiovascular: Yes: WNL Respiratory: Yes: WNL Gastrointestinal: Yes: Tenderness Genitourinary: Yes: Other (NEPHROSTOMY TUBE WITH YELLOW URINE NO BLOOD) Musculoskeletal: Yes: Muscle Weakness Extremities: Yes: Other Edema: No Peripheral Pulses WNL: Yes Integumentary: Yes: WNL Wound/Incision: Yes: Clean/Dry Neurological: Yes: WNL ...Motor Strength: WNL Psychiatric: Yes: WNL Labs: CBC, BMP 10/08/16 06:20 10/08/16 06:20 INR, PTT INR 1.14 (0.82-1.09) 10/07/16 14:42 Problem List - Problems (1) Calculi, ureter Code(s): N20.1 - CALCULUS OF URETER (2) Hematuria Code(s): R31.9 - HEMATURIA, UNSPECIFIED (3) UTI (urinary tract infection) Code(s): N39.0 - URINARY TRACT INFECTION, SITE NOT SPECIFIED Qualifiers: Urinary tract infection type: acute cystitis Hematuria presence: with hematuria Qualified Code(s): N30.01 - Acute cystitis with hematuria (4) Acute kidney injury Code(s): N17.9 - ACUTE KIDNEY FAILURE, UNSPECIFIED (5) COPD (chronic obstructive pulmonary disease) Code(s): J44.9 - CHRONIC OBSTRUCTIVE PULMONARY DISEASE, UNSPECIFIED (6) HTN (hypertension) Code(s): I10 - ESSENTIAL (PRIMARY) HYPERTENSION Assessment/Plan CT ABDOMEN CHECK PLACEMENT OF NEPHROSTOMY TUBE ID CONSULT IR DR BANKS FOR PICC LINE AND NEPHROSTOMY TUBE ADJUSTMENT IV ZOSYN STOPPED PER ID CHECK CULTURES PAIN CONTROL
[2016-10-08] MEDS ORDERED: clonazePAM 0.5 MG TABLET PO ONE (14:15)
[2016-10-08] MEDS: PANTOPRAZOLE 40 MG TABLET (FP) PO SCH (15:02)
[2016-10-08] MEDS: DOCUSATE SODIUM 100 MG CAPSULE (FP) PO SCH (22:32)
[2016-10-08] MEDS: clonazePAM 0.5 MG TABLET PO SCH (22:33)
[2016-10-09 06:30] LABS: MCH 30.2 pg (25.7-33.7); MCHC 32.1 g/dl (32.0-35.9); MEAN CELL VOLUME 94.3 fl (80-96); MEAN PLT VOLUME 7.4 fl (7.5-11.1); PLATELET COUNT 518 K/MM3 (134-434); RDW 16.1 % (11.9-15.9); WHITE BLOOD COUNT 12.5 K/mm3 (4.0-10.0)
[2016-10-09 06:59] LABS: ALBUMIN 2.5 g/dl (3.4-5.0); BILIRUBIN,TOTAL 0.3 mg/dL (0.2-1.0); CALCIUM 9.2 mg/dL (8.5-10.1); CREATININE 1.6 mg/dL (0.7-1.3); TOT PROT 6.1 g/dl (6.4-8.2)
--- NOTE | 2016-10-09 07:40 | PN ---
Progress Note, Physician Chief Complaint: EATING NO COMPLAINTS IR EVAL PENDING - Current Medication List Current Medications: Active Medications Acetaminophen (Tylenol -) 650 mg PO Q6H PRN PRN Reason: FEVER OR PAIN Aclidinium [place] (Tudorza -) 1 puff IH BID [facility] Last Admin: 10/08/16 22:33 Dose: 1 inh Albuterol/Ipratropium (Duoneb -) 1 amp NEB Q6H PRN PRN Reason: SHORTNESS OF BREATH Last Admin: 10/08/16 20:35 Dose: 1 amp Aspirin (Ecotrin -) 81 mg PO DAILY [facility] Atorvastatin Calcium (Lipitor -) 20 mg PO HS [facility] Last Admin: 10/08/16 22:33 Dose: 20 mg Clonazepam (Klonopin -) 1 mg PO BID [facility] Last Admin: 10/08/16 22:33 Dose: 1 mg Clopidogrel Bisulfate (Plavix -) 75 mg PO DAILY [facility] Docusate Sodium (Colace -) 300 mg PO HS [facility] Last Admin: 10/08/16 22:32 Dose: Not Given Finasteride (Proscar -) 5 mg PO DAILY [facility] Last Admin: 10/08/16 11:00 Dose: 5 mg IV Flush (Picc Line Flush) 8 ml IVPUSH PRN PRN PRN Reason: Protocol Metoprolol Succinate (Toprol Xl -) 25 mg PO DAILY [facility] Last Admin: 10/08/16 11:00 Dose: 25 mg Pantoprazole Sodium (Protonix -) 40 mg PO DAILY [facility] Last Admin: 10/08/16 15:02 Dose: 40 mg Tamsulosin HCl (Flomax -) 0.4 mg PO BID [facility] Last Admin: 10/08/16 22:33 Dose: 0.4 mg - Objective Vital Signs: Vital Signs Temperature 97.3 F L 10/09/16 06:00 Pulse Rate 95 H 10/09/16 06:00 Respiratory Rate 16 10/09/16 06:00 Blood Pressure 128/64 10/09/16 06:00 O2 Sat by Pulse Oximetry (%) 96 10/08/16 21:00 Constitutional: Yes: Calm Cardiovascular: Yes: Regular Rate and Rhythm, S1, S2 Respiratory: Yes: CTA Bilaterally Gastrointestinal: Yes: Normal Bowel Sounds, Soft Edema: No Labs: CBC, BMP 10/09/16 05:38 10/09/16 05:38 INR, PTT INR 1.14 (0.82-1.09) 10/07/16 14:42 Problem List - Problems (1) Calculi, ureter Code(s): N20.1 - CALCULUS OF URETER (2) Hematuria Code(s): R31.9 - HEMATURIA, UNSPECIFIED (3) UTI (urinary tract infection) Code(s): N39.0 - URINARY TRACT INFECTION, SITE NOT SPECIFIED Qualifiers: Urinary tract infection type: acute cystitis Hematuria presence: with hematuria Qualified Code(s): N30.01 - Acute cystitis with hematuria (4) Acute kidney injury Code(s): N17.9 - ACUTE KIDNEY FAILURE, UNSPECIFIED (5) COPD (chronic obstructive pulmonary disease) Code(s): J44.9 - CHRONIC OBSTRUCTIVE PULMONARY DISEASE, UNSPECIFIED (6) HTN (hypertension) Code(s): I10 - ESSENTIAL (PRIMARY) HYPERTENSION Assessment/Plan (1) Calculi, ureter Code(s): N20.1 - CALCULUS OF URETER (2) Hematuria Code(s): R31.9 - HEMATURIA, UNSPECIFIED (3) UTI (urinary tract infection) Code(s): N39.0 - URINARY TRACT INFECTION, SITE NOT SPECIFIED Qualifiers: Urinary tract infection type: acute cystitis Hematuria presence: with hematuria Qualified Code(s): N30.01 - Acute cystitis with hematuria (4) Acute kidney injury Code(s): N17.9 - ACUTE KIDNEY FAILURE, UNSPECIFIED (5) COPD (chronic obstructive pulmonary disease) Code(s): J44.9 - CHRONIC OBSTRUCTIVE PULMONARY DISEASE, UNSPECIFIED (6) HTN (hypertension) Code(s): I10 - ESSENTIAL (PRIMARY) HYPERTENSION Assessment/Plan CT ABDOMEN CHECK PLACEMENT OF NEPHROSTOMY TUBE ID CONSULT -> F/U ON IV ABx RECOMMENDATIONS IR DR BANKS FOR PNEPHROSTOMY TUBE ADJUSTMENT IV ZOSYN STOPPED PER ID CHECK CULTURES -> UCx +tanvir PAIN CONTROL DISCHARGE PLANNING PASTOR KRUEGER
[2016-10-09] MEDS ORDERED: PT OWN MED DRAWER 7, Y5N ONE ×2 (08:35→21:40)
[2016-10-09] MEDS: TAMSULOSIN HCL 0.4 MG CAP.ER.24H (FP) PO SCH ×2 (09:20→21:41)
[2016-10-09] MEDS: PANTOPRAZOLE 40 MG TABLET (FP) PO SCH (09:21)
[2016-10-09] MEDS: ACLIDINIUM BROMIDE 400 MCG/INH AERO.POWD IH SCH ×2 (09:21→21:41)
[2016-10-09] MEDS: FINASTERIDE 5 MG TABLET (FP) PO SCH (09:21)
[2016-10-09] MEDS: METOPROLOL SUCCINATE 25 MG TAB.SR.24H (FP) PO SCH (09:21)
[2016-10-09] MEDS: clonazePAM 0.5 MG TABLET PO SCH ×2 (09:21→21:41)
--- NOTE | 2016-10-09 10:41 | PN ---
Progress Note (short form) - Note Progress Note: ID NO antibiotics and afebrile Selected Entries 10/09/16 06:00 Temperature 97.3 F L Pulse Rate 95 H Respiratory 16 Rate Blood Pressure 128/64 Microbiology Laboratory Tests 10/07/16 10/09/16 14:42 05:38 WBC 12.5 H Hgb 9.1 L Hct 28.3 L Plt Count 518 H Urine WBC 70 Assessment Hematuria resolved Regardless of positive urine culture from nephrostomy or not (will be positive) Do not see a reason to treat him with a PICC line a this time. Kindly recall as needed Keith TELLO Problem List - Problems (1) Calculi, ureter Code(s): N20.1 - CALCULUS OF URETER (2) UTI (urinary tract infection) Code(s): N39.0 - URINARY TRACT INFECTION, SITE NOT SPECIFIED Qualifiers: Urinary tract infection type: acute cystitis Hematuria presence: with hematuria Qualified Code(s): N30.01 - Acute cystitis with hematuria
[2016-10-09] MEDS: CLOPIDOGREL BISULFATE 75 MG TABLET (FP) PO SCH (12:15)
[2016-10-09] MEDS: ASPIRIN COATED 81 MG TABLET.EC PO SCH (12:15)
--- NOTE | 2016-10-09 16:20 | EKG ---
Test Reason : Blood Pressure : / mmHG Vent. Rate : 099 BPM Atrial Rate : 099 BPM P-R Int : 172 ms QRS Dur : 092 ms QT Int : 354 ms P-R-T Axes : 075 -02 061 degrees QTc Int : 454 ms NORMAL SINUS RHYTHM NORMAL ECG WHEN COMPARED WITH ECG OF 26-SEP-2016 13:45, NO SIGNIFICANT CHANGE WAS FOUND Confirmed by RAMIRO MIMS MD ([id number]) on 10/09/2016 4:19:55 PM Referred By: Confirmed By:RAMIRO MIMS MD
[2016-10-09] MEDS: ATORVASTATIN CA 20 MG TABLET (FP) PO SCH (21:41)
[2016-10-09] MEDS: DOCUSATE SODIUM 100 MG CAPSULE (FP) PO SCH (21:41)
[2016-10-10 07:33] LABS: MCH 30.8 pg (25.7-33.7); MCHC 32.8 g/dl (32.0-35.9); MEAN CELL VOLUME 94.1 fl (80-96); MEAN PLT VOLUME 7.5 fl (7.5-11.1); PLATELET COUNT 485 K/MM3 (134-434); RDW 15.9 % (11.9-15.9); WHITE BLOOD COUNT 10.6 K/mm3 (4.0-10.0)
[2016-10-10 07:59] LABS: ALBUMIN 2.6 g/dl (3.4-5.0); BILIRUBIN,TOTAL 0.2 mg/dL (0.2-1.0); CALCIUM 9.4 mg/dL (8.5-10.1); CREATININE 1.4 mg/dL (0.7-1.3)
[2016-10-10] MEDS ORDERED: PT OWN MED DRAWER 7, Y5N ONE (09:45)
[2016-10-10] MEDS: PANTOPRAZOLE 40 MG TABLET (FP) PO SCH (10:22)
[2016-10-10] MEDS: ASPIRIN COATED 81 MG TABLET.EC PO SCH (10:22)
[2016-10-10] MEDS: METOPROLOL SUCCINATE 25 MG TAB.SR.24H (FP) PO SCH (10:22)
[2016-10-10] MEDS: FINASTERIDE 5 MG TABLET (FP) PO SCH (10:23)
[2016-10-10] MEDS: clonazePAM 0.5 MG TABLET PO SCH (10:23)
[2016-10-10] MEDS: TAMSULOSIN HCL 0.4 MG CAP.ER.24H (FP) PO SCH (10:23)
[2016-10-10] MEDS: CLOPIDOGREL BISULFATE 75 MG TABLET (FP) PO SCH (10:23)
[2016-10-10] MEDS: ACLIDINIUM BROMIDE 400 MCG/INH AERO.POWD IH SCH (10:23)
[2016-10-10 13:03] LABS: HYPOCHROMIA 1+; METAMYELOCYTE 1 % (0-2)
[2016-10-10 15:18] VITALS: BP 119/62; PULSE 87; TEMP 97.4
--- NOTE | 2016-10-10 15:25 | DS ---
Physical Examination Vital Signs: Vital Signs Temperature 97.4 F L 10/10/16 14:45 Pulse Rate 87 10/10/16 14:45 Respiratory Rate 16 10/10/16 14:45 Blood Pressure 119/62 10/10/16 14:45 O2 Sat by Pulse Oximetry (%) 94 L 10/10/16 09:00 Findings/Remarks: AWAKE ALERT FEELS GOOD Constitutional: Yes: No Distress Eyes: Yes: WNL HENT: Yes: WNL Neck: Yes: WNL Cardiovascular: Yes: WNL Respiratory: Yes: WNL Gastrointestinal: Yes: WNL Renal/: Yes: Other Musculoskeletal: Yes: Muscle Weakness Edema: No Peripheral Pulses WNL: Yes Integumentary: Yes: WNL Wound/Incision: Yes: Clean/Dry Neurological: Yes: WNL ...Motor Strength: LLE, RLE Psychiatric: Yes: WNL Labs: CBC, BMP 10/10/16 05:35 10/10/16 05:35 Discharge Summary Reason For Visit: UTI HEMATURIA CALCULI URETER(MRSA) Current Active Problems Calculi, ureter (Acute) Hematuria (Acute) UTI (urinary tract infection) (Acute) Procedures: Principal: NEPHROSTOMY SCAN Other Procedures: CT SCAN Hospital Course: ADMITTED FOR NEPHROSTOMY OBSTRUCTION/HEMATUREA/UTI, RENAL CALCULI OBSTRUCTION, WORKED UP AND WILL SEE INTERVENTIONAL RADIOLOGY IN 5 DAYS FOR NEPHROSTOMY CHANGE Condition: Improved - Instructions Diet, Activity, Other Instructions: LOW SALT Referrals: Sean Bowers MD [Primary Care Provider] - Disposition: [facility] - Home Medications Comprehensive Discharge Medication List: Ambulatory Orders Aspirin [Baby Aspirin] 81 mg PO DAILY 11/09/11 Atorvastatin Ca [Lipitor] 20 mg PO HS 11/09/11 Tamsulosin HCl [Flomax -] 0.4 mg PO BID 11/09/11 Finasteride [Proscar -] 5 mg PO DAILY 07/29/16 Tiotropium [place] [Spiriva] 1 inh PO DAILY 07/30/16 Albuterol Sulfate 0.5% [Ventolin 0.5% Nebulizing Soln. -] 1 amp NEB QIDR amp Bacitracin - [Bacitracin Topical Ointment -] 1 applic TP BID #1 applic 08/25/16 Clopidogrel Bisulfate [Plavix -] 75 mg PO ASDIR #0 08/25/16 Docusate Sodium [Colace -] 100 mg PO DAILY capsule 08/25/16 Acetaminophen [Pain Relief] 650 mg PO QID PRN 09/26/16 Clonazepam [Klonopin -] 1 mg PO BID MDD 2mg 09/26/16 Mag Hydrox/Al Hydrox/Simeth [Mylanta Oral Suspension -] 30 ml PO Q6H PRN Albuterol 2.5/Ipratropium 0.5 [Duoneb -] 1 amp NEB QIDR amp 10/03/16 Metoprolol Succinate [Toprol Xl] 25 mg PO DAILY #30 tab.er.24h 10/03/16 Acetaminophen [Tylenol .Regular Strength -] 650 mg PO Q6H PRN #0 tablet Albuterol 2.5/Ipratropium 0.5 [Duoneb -] 1 amp NEB Q6H PRN #0 amp 10/10/16 Aspirin Coated [Ecotrin -] 81 mg PO DAILY tablet.ec 10/10/16 Atorvastatin Ca [Lipitor] 20 mg PO HS tablet 10/10/16 Clonazepam [Klonopin -] 1 mg PO BID #60 tablet MDD 2 10/10/16 Clopidogrel Bisulfate [Plavix -] 75 mg PO DAILY tablet 10/10/16 Docusate Sodium [Colace -] 300 mg PO HS capsule 10/10/16 Finasteride [Proscar -] 5 mg PO DAILY tablet 10/10/16 Metoprolol Succinate [Toprol XL -] 25 mg PO DAILY tab.sr.24h 10/10/16 Pantoprazole Sodium [Protonix -] 40 mg PO DAILY tablet.ec 10/10/16 Tamsulosin HCl [Flomax -] 0.4 mg PO BID cap.er.24h 10/10/16
== END 2016-10-10 16:00 | DRG 694 ==
LOC: JER 13:29 → JERBED 16:59 → J4S 23:25
PROVIDERS: ADMIT Family Medicine; ATTEND Family Medicine
PROC: BT121ZZ Fluoroscopy of Left Kidney using Low Osmolar Contrast (ICD-10-PCS; principal; 2016-10-09)
DX: N20.1 Calculus of ureter (principal); N39.0 Urinary tract infection, site not specified; N17.9 Acute kidney failure, unspecified; Z85.118 Personal history of other malignant neoplasm of bronchus and lung; E78.5 Hyperlipidemia, unspecified; I10 Essential (primary) hypertension; Z87.891 Personal history of nicotine dependence; J44.9 Chronic obstructive pulmonary disease, unspecified; Z93.6 Other artificial openings of urinary tract status
CPT/HCPCS: 36415; 50431; 74176; 74425-TC; 80053; 81003; 81015; 85025; 85027; 85610; 86850; 86900; 86901; 87077; 87081; 87086; 87186; 93005; 93010; 94640; 99283-25

== ENCOUNTER 2016-10-27 22:31 | Inpatient (IN) | payer OTHER ==
--- NOTE | 2016-10-27 22:38 | PDOC ---
History of Present Illness - General History Source: Patient, Longterm Records Exam Limitations: No Limitations - History of Present Illness Initial Comments: 10/27/16 23:14 The patient is a 71-year-old male sent from [facility], with a significant past medical history of TURP, HTN, HLD, CAD, nephrostomy tube of left kidney, thyroid disease s/p thyroidectomy, lung CA s/p lobectomy, who presents to the emergency department with fever and chills and to rule out sepsis. The patient reports that he had a fever (Tmax 102 F) and chills. He took Tylenol with minimal relief. He reports a moderate non-productive cough. He denies any back pain or other pain. He received the flu shot this year. The patient denies chest pain, shortness of breath, headache and dizziness. The patient denies abdominal pain, nausea, vomit, diarrhea and constipation. The patient denies dysuria, frequency, urgency and hematuria. Allergies: NKDA Past surgical history: Nephrostomy from left kidney, lobectomy, thyroidectomy Social history: Denies any toxic habits PMD - Dr. Sean Bowers Urologist: is at [facility] <Cassidy Cyr - Last Filed: 10/27/16 23:14> <Dash Fuller - Last Filed: 10/28/16 03:31> - General Stated Complaint: SEPSIS Past History <Cassidy Cyr - Last Filed: 10/27/16 23:14> - Past Medical History Anemia: No Asthma: No Cancer: Yes Cardiac Disorders: Yes (lung cancer) CVA: No COPD: No CHF: No Dementia: No Diabetes: No GI Disorders: No Disorders: Yes (TURP 2008) HTN: Yes Hypercholesterolemia: Yes Liver Disease: No Seizures: No Thyroid Disease: Yes (partial throidectomy) - Surgical History Abdominal Surgery: No Appendectomy: No Cardiac Surgery: No Cholecystectomy: No Lung Surgery: Yes Neurologic Surgery: No - Immunization History Td Vaccination: Yes (UNKNOWN) Immunization Up to Date: Yes - Psycho/Social/Smoking Cessation Hx Anxiety: No Suicidal Ideation: No Smoking Status: Yes Smoking History: Former smoker Years of Tobacco Use: 40 Have you smoked in the past 12 months: No Number of Cigarettes Smoked Daily: 10 If you are a former smoker, when did you quit?: 6 months ago Cigars Per Day: 0 'Breaking Loose' booklet given: 02/17/12 Hx Alcohol Use: No Drug/Substance Use Hx: No Substance Use Type: None Hx Substance Use Treatment: No <Dash Fuller - Last Filed: 10/28/16 03:31> - Past Medical History Allergies/Adverse Reactions: Allergies Allergy/AdvReac Type Severity Reaction Status Date / Time No Known Allergies Allergy Verified 10/07/16 13:55 Home Medications: Ambulatory Orders Tiotropium [place] [Spiriva] 1 inh PO DAILY 07/30/16 Albuterol Sulfate 0.5% [Ventolin 0.5% Nebulizing Soln. -] 1 amp NEB QIDR amp Mag Hydrox/Al Hydrox/Simeth [Mylanta Oral Suspension -] 30 ml PO Q6H PRN Acetaminophen [Tylenol .Regular Strength -] 650 mg PO Q6H PRN #0 tablet Albuterol 2.5/Ipratropium 0.5 [Duoneb -] 1 amp NEB Q6H PRN #0 amp 10/10/16 Atorvastatin Ca [Lipitor] 20 mg PO HS tablet 10/10/16 Clonazepam [Klonopin -] 1 mg PO BID #60 tablet MDD 2 10/10/16 Clopidogrel Bisulfate [Plavix -] 75 mg PO DAILY tablet 10/10/16 Docusate Sodium [Colace -] 300 mg PO HS capsule 10/10/16 Finasteride [Proscar -] 5 mg PO DAILY tablet 10/10/16 Metoprolol Succinate [Toprol XL -] 25 mg PO DAILY tab.sr.24h 10/10/16 Pantoprazole Sodium [Protonix -] 40 mg PO DAILY tablet.ec 10/10/16 Tamsulosin HCl [Flomax -] 0.4 mg PO BID cap.er.24h 10/10/16 Review of Systems - Review of Systems Able to Perform ROS?: Yes Comments:: 10/27/16 23:15 CONSTITUTIONAL: Present: (+) fever, (+) chills Absent: diaphoresis, generalized weakness, malaise, loss of appetite HEENT: Absent: rhinorrhea, nasal congestion, throat pain, throat swelling, difficulty swallowing, mouth swelling, ear pain, eye pain, visual changes CARDIOVASCULAR: Absent: chest pain, syncope, palpitations, irregular heart rate, lightheadedness , peripheral edema RESPIRATORY: Absent: cough, shortness of breath, dyspnea with exertion, orthopnea, wheezing, stridor, hemoptysis GASTROINTESTINAL: Absent: abdominal pain, abdominal distension, nausea, vomiting, diarrhea, constipation, melena, hematochezia GENITOURINARY: Absent: dysuria, frequency, urgency, hesitancy, hematuria, flank pain, genital pain MUSCULOSKELETAL: Absent: myalgia, arthralgia, joint swelling SKIN: Absent: rash, itching, pallor HEMATOLOGIC/IMMUNOLOGIC: Absent: easy bleeding, easy bruising, lymphadenopathy, frequent infections ENDOCRINE: Absent: unexplained weight gain, unexplained weight loss, heat intolerance, cold intolerance NEUROLOGIC: Absent: headache, focal weakness or paresthesias, dizziness, unsteady gait, seizure, mental status changes, bladder or bowel incontinence PSYCHIATRIC: Absent: depression, suicidal or homicidal ideation, hallucinations. <GerCassidy - Last Filed: 10/27/16 23:14> *Physical Exam - Vital Signs Last Vital Signs Temp Pulse Resp BP Pulse Ox 100.3 F H 100 H 19 107/59 97 10/27/16 22:50 10/27/16 22:50 10/27/16 22:50 10/27/16 22:50 10/27/16 22:50 - Physical Exam Comments: 10/27/16 23:15 GENERAL: Well developed, well nourished. Awake and alert and coherent. In no acute distress. HEENT: Normocephalic, atraumatic. PERRLA, EOMI. No conjunctival pallor. Sclera are non- icteric. Moist mucous membranes. Oropharynx is clear. (+) Not dehydrated. NECK: Supple. Full ROM. No JVD. Carotid pulses 2+ and symmetric, without bruits. No thyromegaly. No lymphadenopathy. CARDIOVASCULAR: Regular rate and rhythm. No murmurs, rubs, or gallops. Distal pulses are 2+ and symmetric. PULMONARY: No evidence of respiratory distress. Lungs clear to auscultation bilaterally. No wheezing, rales or rhonchi. ABDOMINAL: (+) Minimal tenderness of the left lower quadrant. (+) Left nephrostomy tube. Soft. Non-distended. No rebound or guarding. No organomegaly. Normoactive bowel sounds. MUSCULOSKELETAL Normal range of motion at all joints. No bony deformities or tenderness. No CVA tenderness. EXTREMITIES: No cyanosis. No clubbing. No edema. No calf tenderness. SKIN: Warm and dry. Normal capillary refill. No rashes. No jaundice. NEUROLOGICAL: Alert, awake, appropriate. Cranial nerves 2-12 intact. No deficits to light touch and temperature in face, upper extremities and lower extremities. No motor deficits in the in face, upper extremities and lower extremities. Normoreflexic in the upper and lower extremities. Normal speech. Toes are downgoing bilaterally. PSYCHIATRIC: Cooperative. Good eye contact. Appropriate mood and affect. <Cassidy Cyr - Last Filed: 10/27/16 23:14> ED Treatment Course - LABORATORY CBC & Chemistry Diagram: 10/27/16 23:00 10/28/16 00:37 <Dash Fuller - Last Filed: 10/28/16 03:31> *DC/Admit/Observation/Transfer - Attestations Scribe Attestion: 10/27/16 23:16 Documentation prepared by Cassidy Cyr, acting as medical psychotherapist for Dash Fuller MD. <Cassidy Cyr - Last Filed: 10/27/16 23:14> - Discharge Dispostion Admit: Yes <Dash Fuller - Last Filed: 10/28/16 03:31> Diagnosis at time of Disposition: UTI (urinary tract infection), Nephrolithiasis, Calculi, ureter, Pneumonia, Systemic inflammatory response syndrome (SIRS) - Discharge Dispostion Condition at time of disposition: Guarded - Referrals Referrals: Sean Bowers MD [Primary Care Provider] -
[2016-10-27] MEDS ORDERED: ACETAMINOPHEN 325 MG TABLET (FP) PO ONE (22:59)
[2016-10-27] MEDS ORDERED: clonazePAM 0.5 MG TABLET PO ONE (22:59)
[2016-10-27] MEDS ORDERED: ACETAMINOPHEN 325 MG TABLET (FP) ONE (23:08)
[2016-10-27] MEDS ORDERED: clonazePAM 0.5 MG TABLET ONE ×2 (23:09→23:18)
[2016-10-27 23:43] LABS: MCHC 32.5 g/dl (32.0-35.9); MEAN CELL VOLUME 95.4 fl (80-96); PLATELET COUNT 435 K/MM3 (134-434); WHITE BLOOD COUNT 19.2 K/mm3 (4.0-10.0)
[2016-10-27] MEDS: SODIUM CHLORIDE 1,000 ML IV SCH (23:50)
[2016-10-28 00:09] LABS: URINE APPEARANCE TURBID; URINE BILIRUBIN NEGATIVE (NEGATIVE); URINE COLOR YELLOW; URINE GLUCOSE (UA) NEGATIVE (NEGATIVE); URINE KETONE NEGATIVE (NEGATIVE); URINE NITRITE NEGATIVE (NEGATIVE); URINE UROBILINOGEN NEGATIVE E.U./dl (0.2-1.0)
[2016-10-28 00:23] LABS: URINE BLOOD 3+ (NEGATIVE); URINE LEUK ESTERASE 3+ (NEGATIVE); URINE PROTEIN 1+ (NEGATIVE)
[2016-10-28 00:25] LABS: URINE BACTERIA FEW /hpf (NONE SEEN); URINE HYALINE CAST 16 /lpf; URINE RBC 359 /hpf (0-3); URINE WBC 1581 /hpf (3-5)
[2016-10-28] MEDS ORDERED: MEROPENEM 1,000 MG in DEXTROSE 5%-WATER - 100 ML IVPB ONE (00:43)
[2016-10-28 01:47] LABS: ALBUMIN 2.3 g/dl (3.4-5.0); CALCIUM 8.2 mg/dL (8.5-10.1); CREATININE 1.5 mg/dL (0.7-1.3)
[2016-10-28 01:49] LABS: BILIRUBIN,TOTAL 0.5 mg/dL (0.2-1.0); TOT PROT 5.4 g/dl (6.4-8.2)
[2016-10-28] MEDS ORDERED: ACETAMINOPHEN 325 MG TABLET (FP) PO PRN ×2 (04:37→07:19)
--- NOTE | 2016-10-28 05:30 | HP ---
CHIEF COMPLAINT: Fever, Chills PCP: Dr. Sean Bowers HISTORY OF PRESENT ILLNESS: This is a 71 y/o male from [facility] with a past medical history of TURP, HTN, HLD, CAD (NSTEMI 2006), Nephrostomy Tube Left Kidney, Thyroid Disease (Thyroidectomy), Lung Ca (Lobectomy), Prostate Ca. Who presents to the emergency department with fever and chills x yesterday morning. Patient reports having recent admissions from July to September for Urosepsis and Nephrolithiasis. Patient reports seeing his Administration Dean for f/u with his nehrostomy tube. Patient denies SOB, CP, AP, N/V/D, constipation. ER course was notable for: (1) Sepsis criteria met III T-100.3, P-100, WBC 19.2 (2) UTI: +leukocyte esterase, +3 blood, WBC 1500 (3) Chest Xray: image RUL infiltrate, treating for HCAP Recent Travel: None PAST MEDICAL HISTORY: See HPI PAST SURGICAL HISTORY: TURP Nephrostomy Tube Partial Thyroidectomy Left Lobectomy Cholecystectomy Social History: Smoking: Former Alcohol: Denies Drugs: Denies Family History: Father: Stroke Mother: Epilepsy Allergies No Known Allergies Allergy (Verified 10/07/16 13:55) DENIES ALLERGIES HOME MEDICATIONS: Home Medications Medication Instructions Recorded Tiotropium [place] [Spiriva] 1 inh PO DAILY 07/30/16 Albuterol Sulfate 0.5% [Ventolin 1 amp NEB QIDR amp 08/25/16 0.5% Nebulizing Soln. -] Mag Hydrox/Al Hydrox/Simeth 30 ml PO Q6H PRN 09/26/16 [Mylanta Oral Suspension -] Acetaminophen [Tylenol .Regular 650 mg PO Q6H PRN #0 tablet 10/10/16 Strength -] Albuterol 2.5/Ipratropium 0.5 1 amp NEB Q6H PRN #0 amp 10/10/16 [Duoneb -] Atorvastatin Ca [Lipitor] 20 mg PO HS tablet 10/10/16 Clonazepam [Klonopin -] 1 mg PO BID #60 tablet MDD 2 10/10/16 Clopidogrel Bisulfate [Plavix -] 75 mg PO DAILY tablet 10/10/16 Docusate Sodium [Colace -] 300 mg PO HS capsule 10/10/16 Finasteride [Proscar -] 5 mg PO DAILY tablet 10/10/16 Metoprolol Succinate [Toprol XL -] 25 mg PO DAILY tab.sr.24h 10/10/16 Pantoprazole Sodium [Protonix -] 40 mg PO DAILY tablet.ec 10/10/16 Tamsulosin HCl [Flomax -] 0.4 mg PO BID cap.er.24h 10/10/16 REVIEW OF SYSTEMS CONSTITUTIONAL: fever, chills Absent: diaphoresis, generalized weakness, malaise, loss of appetite, weight change HEENT: Absent: rhinorrhea, nasal congestion, throat pain, throat swelling, difficulty swallowing, mouth swelling, ear pain, eye pain, visual changes CARDIOVASCULAR: Absent: chest pain, syncope, palpitations, irregular heart rate, lightheadedness , peripheral edema RESPIRATORY: cough Absent: shortness of breath, dyspnea with exertion, orthopnea, wheezing, stridor , hemoptysis GASTROINTESTINAL: Absent: abdominal pain, abdominal distension, nausea, vomiting, diarrhea, constipation, melena, hematochezia GENITOURINARY: Absent: dysuria, frequency, urgency, hesitancy, hematuria, flank pain, genital pain MUSCULOSKELETAL: Absent: myalgia, arthralgia, joint swelling, back pain, neck pain SKIN: Absent: rash, itching, pallor HEMATOLOGIC/IMMUNOLOGIC: Absent: easy bleeding, easy bruising, lymphadenopathy, frequent infections ENDOCRINE: Absent: unexplained weight gain, unexplained weight loss, heat intolerance, cold intolerance NEUROLOGIC: Absent: headache, focal weakness or paresthesias, dizziness, unsteady gait, seizure, mental status changes, bladder or bowel incontinence PSYCHIATRIC: Absent: anxiety, depression, suicidal or homicidal ideation, hallucinations. PHYSICAL EXAMINATION Vital Signs - 24 hr 10/27/16 10/28/16 22:50 02:50 Temperature 100.3 F H 99.6 F Pulse Rate 100 H Pulse Rate [ 89 Apical] Respiratory 19 18 Rate Blood Pressure 107/59 Blood Pressure 131/64 [Right Arm] O2 Sat by Pulse 97 99 Oximetry (%) GENERAL: Awake, alert, and fully oriented, in no acute distress. HEAD: Normal with no signs of trauma. EYES: Pupils equal, round and reactive to light, extraocular movements intact, sclera anicteric, conjunctiva clear. No lid lag. EARS, NOSE, THROAT: Ears normal, nares patent, oropharynx clear without exudates. Dry mucous membranes. NECK: Normal range of motion, supple without lymphadenopathy, JVD, or masses. LUNGS: + Scattered Coarse rhonchi to right lobes, Diminished to left lobe. No wheezes, and no crackles. No accessory muscle use. HEART: Regular rate and rhythm, normal S1 and S2 without murmur, rub or gallop. ABDOMEN: Soft, nontender, not distended, normoactive bowel sounds, no guarding, no rebound, no masses. No hepatomegaly or splenomegaly. Surgical scar healed mid-line. MUSCULOSKELETAL: Normal range of motion at all joints. No bony deformities or tenderness. No CVA tenderness, + L nephrostomy tube. UPPER EXTREMITIES: 2+ pulses, warm, well-perfused. No cyanosis. No clubbing. Cap refill <2 seconds. No peripheral edema. LOWER EXTREMITIES: 2+ pulses, warm, well-perfused. No calf tenderness. No peripheral edema. NEUROLOGICAL: Cranial nerves II-XII intact. Normal speech. Gait not observed. PSYCHIATRIC: Cooperative. Good eye contact. Appropriate mood and affect. SKIN: Warm, dry, normal turgor, no rashes or lesions noted. Laboratory Results - last 24 hr 10/27/16 10/27/16 10/27/16 23:00 23:00 23:00 WBC 19.2 H D RBC 3.12 L Hgb 9.7 L Hct 29.8 L MCV 95.4 MCHC 32.5 RDW 17.0 H Plt Count 435 H MPV 8.0 Neutrophils % Y Lymphocytes % Y Sodium Cancelled Potassium Cancelled Chloride Cancelled Carbon Dioxide Cancelled Anion Gap Cancelled BUN Cancelled Creatinine Cancelled Creat Clearance w eGFR Cancelled Random Glucose Cancelled Lactic Acid 0.849 Calcium Cancelled Total Bilirubin Cancelled AST Cancelled ALT Cancelled Alkaline Phosphatase Cancelled Total Protein Cancelled Albumin Cancelled Urine Color Urine Appearance Urine pH Ur Specific [employer] Urine Protein Urine Glucose (UA) Urine Ketones Urine Blood Urine Nitrite Urine Bilirubin Urine Urobilinogen Ur Leukocyte Esterase Urine RBC Urine WBC Urine Bacteria Hyaline Casts 10/27/16 10/28/16 23:46 00:37 WBC RBC Hgb Hct MCV MCHC RDW Plt Count MPV Neutrophils % Lymphocytes % Sodium 139 Potassium 4.2 Chloride 101 Carbon Dioxide 27 Anion Gap 11 BUN 28 H D Creatinine 1.5 H Creat Clearance w eGFR 46.27 Random Glucose 96 Lactic Acid Calcium 8.2 L Total Bilirubin 0.5 D AST 6 L D ALT 10 L D Alkaline Phosphatase 57 Total Protein 5.4 L Albumin 2.3 L Urine Color Yellow Urine Appearance Turbid Urine pH 6.0 Ur Specific [employer] 1.010 Urine Protein 1+ H Urine Glucose (UA) Negative Urine Ketones Negative Urine Blood 3+ H Urine Nitrite Negative Urine Bilirubin Negative Urine Urobilinogen Negative Ur Leukocyte Esterase 3+ H Urine RBC 359 Urine WBC 1581 Urine Bacteria Few Hyaline Casts 16 ASSESSMENT/PLAN: This is a 71 y/o male with a PMHx of: TURP, HTN, HLD, CAD (NSTEMI 2006), Prostate Ca, Thyroid Disease (Partial Thyroidectomy), Lung Ca (lobectomy), Former Smoker, Duodenal Ulcer with Perforation. Presents to the ED from [facility] with fever and chills. Admitted for Sepsis secondary to UTI, HCAP for further evaluation of their emergent condition. Patient admitted to [facility], per Dr. Fuller patient refuses to be admitted to Dr. Pichardo's [facility]. Plan: FEN - NS@60ml/hr - Replete lytes prn - Low Na Diet Problem List - Problem (1) Sepsis Assessment/Plan: - Likely secondary to UTI vs HCAP - qSOFA 0 - UA- +leukocyte estaerase, +3 Blood, 1500 WBC with sediment in hooks tubing - Urine Culture-pending - Blood Culture-pending - Appreciate ID Consult - Meropenem, Tylenol, IV fluids given in ED - Temp trending down 100.6~ 99.6 - Will continue IVF - Monitor CBC, BMP - Tylenol prn Code(s): A41.9 - SEPSIS, UNSPECIFIED ORGANISM (2) Systemic inflammatory response syndrome (SIRS) Assessment/Plan: - See Above Code(s): R65.10 - SIRS OF NON-INFECTIOUS ORIGIN W/O ACUTE ORGAN DYSFUNCTION (3) UTI (urinary tract infection) Assessment/Plan: - Patient received with hooks catheter from [facility] - +3 Leukocyte Esterase, +3 Blood, 1500 WBC - Urine Culture-pending - +pseudomonas aeruginosa hx - Appreciate ID Consult - Meropenem given in ED - Will continue Meropenem until preliminary report - Tylenol prn - Gentle IVF - Code(s): N39.0 - URINARY TRACT INFECTION, SITE NOT SPECIFIED (4) History of nephrostomy Assessment/Plan: - s/p Nephrostomy tube placement - Renal US-pending - Consider Nephrology Consult - Strict INOs Code(s): Z87.448 - PERSONAL HISTORY OF OTHER DISEASES OF URINARY SYSTEM (5) Pneumonia Assessment/Plan: - Patient resides in SNF for rehab, recent hospital admission < 30 days - Will treat for HCAP - CURB65 Score 2 - WBC 43664 - Blood Cultures-pending - Chest Xray-pending - Treated empirically with ABX in ED - Appreciate ID Consult - Will continue Empirical ABX - Tylenol prn - Monitor CBC - Monitor Vitals - Continue O2 - Sputum culture - Urine Legionella Code(s): J18.9 - PNEUMONIA, UNSPECIFIED ORGANISM (6) Hooks catheter in place prior to arrival Assessment/Plan: - Per patient changed 2 weeks ago - On exam- sediment noted in drainage tube Code(s): BXX5054 - (7) CAD (coronary artery disease) Assessment/Plan: - s/p NSTEMI - Continue Plavix - EKG: NSR 93bpm, left axis deviation no significant change compared to prior study 09/2016 Code(s): I25.10 - ATHSCL HEART DISEASE OF [place] CORONARY ARTERY W/O ANG PCTRS (8) HTN (hypertension) Assessment/Plan: - Monitor BP - Continue home med with parameters - Monitor renal function Code(s): I10 - ESSENTIAL (PRIMARY) HYPERTENSION (9) HLD (hyperlipidemia) Assessment/Plan: - Continue home med Code(s): E78.5 - HYPERLIPIDEMIA, UNSPECIFIED (10) Thyroid disease Assessment/Plan: - s/p Partial Thyroidectomy Code(s): E07.9 - DISORDER OF THYROID, UNSPECIFIED (11) History of lung cancer Assessment/Plan: - s/p L- Lobectomy - O2- 2L Code(s): Z85.118 - PERSONAL HISTORY OF MALIGNANT NEOPLASM OF BRONCHUS AND LUNG (12) History of prostate cancer Assessment/Plan: - s/p Turp Code(s): Z85.46 - PERSONAL HISTORY OF MALIGNANT NEOPLASM OF PROSTATE (13) DVT prophylaxis Assessment/Plan: - OOB - SCDs Code(s): COJ5115 - Visit type - Emergency Visit Emergency Visit: Yes ED Registration Date: 10/28/16 Care time: The patient presented to the Emergency Department on the above date and was hospitalized for further evaluation of their emergent condition. - New Patient This patient is new to me today: Yes Date on this admission: 10/28/16 - Critical Care Critical Care patient: No
[2016-10-28] MEDS ORDERED: ALBUTEROL SO4 2.5/IPRATROPIUM 0.5 INH SOL 3 ML VIAL.NEB. NEB PRN (07:19)
[2016-10-28] MEDS: clonazePAM 0.5 MG TABLET PO SCH ×2 (09:27→21:44)
[2016-10-28] MEDS: FINASTERIDE 5 MG TABLET (FP) PO SCH (09:27)
[2016-10-28] MEDS: TAMSULOSIN HCL 0.4 MG CAP.ER.24H (FP) PO SCH ×2 (09:27→21:44)
[2016-10-28] MEDS: PANTOPRAZOLE 40 MG TABLET (FP) PO SCH (09:27)
[2016-10-28] MEDS: METOPROLOL SUCCINATE 25 MG TAB.SR.24H (FP) PO SCH (09:36)
[2016-10-28] MEDS ORDERED: CLOPIDOGREL BISULFATE 75 MG TABLET (FP) PO SCH (10:00)
[2016-10-28 10:55] LABS: BASOPHIL 1.1 % (0-2.0); EOSINOPHIL 0.7 % (0-4.5); MCH 30.6 pg (25.7-33.7); MCHC 32.2 g/dl (32.0-35.9); MEAN CELL VOLUME 95.2 fl (80-96); MEAN PLT VOLUME 7.4 fl (7.5-11.1); NEUTROPHILS 76.6 % (42.8-82.8); PLATELET COUNT 350 K/MM3 (134-434); RDW 16.8 % (11.9-15.9); WHITE BLOOD COUNT 15.1 K/mm3 (4.0-10.0)
[2016-10-28] MEDS: ALBUTEROL SO4 0.5 % INH SOLN 2.5 MG/0.5 ML VIAL.NEB. NEB SCH ×3 (11:25→23:00)
[2016-10-28 11:27] LABS: CALCIUM 8.4 mg/dL (8.5-10.1); CREATININE 1.5 mg/dL (0.7-1.3)
[2016-10-28] MEDS: TIOTROPIUM BROMIDE 18 MCG/INH (DEVICE W/ 5 CAPSULES) IH SCH (11:38)
--- NOTE | 2016-10-28 11:42 | PN ---
Progress Note (short form) - Note Progress Note: ID Consult dictated UTI/ Sepsis secondary to UTI Possible Pneumonia Obstructive uropsthy s/p L PCN Azotemia Leukocytosis Pending sepsis workup, empiric Zosyn + stat dose vanconycin
[2016-10-28] MEDS ORDERED: PT OWN MED DRAWER 7, Y5N ONE (11:50)
[2016-10-28] MEDS: PIPERACILLIN/TAZOB 3.375 GM 50 ML IVPB SCH ×2 (12:00→17:57)
[2016-10-28] MEDS: ASPIRIN COATED 81 MG TABLET.EC PO SCH (12:00)
[2016-10-28] MEDS ORDERED: VANCOMYCIN 1 GRAM (PRE-DOCKED) 250 ML IVPB ONE (13:00)
[2016-10-28 16:33] VITALS: BMI 24.5
--- NOTE | 2016-10-28 16:47 | PN ---
Physical Exam: SUBJECTIVE: Patient seen and examined. States he feels better now that he no longer has a fever. Expresses fatigue. OBJECTIVE: Vital Signs Period Temp Pulse Resp BP Sys/[place] Pulse Ox Last 24 Hr 98.2 F-102.7 F 90-120 16-23 98-124/38-67 95-97 GENERAL: The patient is awake, alert, and fully oriented, in no acute distress. HEAD: Normal with no signs of trauma. EYES: PERRL, extraocular movements intact, sclera anicteric, conjunctiva clear. No ptosis. ENT: Ears normal, nares patent, oropharynx clear without exudates, moist mucous membranes. NECK: Trachea midline, full range of motion, supple. LUNGS: Left lung with course rhonchi, right lung diminished, 02 dependent at [facility], on continuous 2 liters of [place] HEART: Regular rate and rhythm, S1, S2 without murmur, rub or gallop. ABDOMEN: Soft, nontender, nondistended, normoactive bowel sounds, no guarding, no rebound, no hepatosplenomegaly, no masses. EXTREMITIES: 2+ pulses, warm, well-perfused, no edema. NEUROLOGICAL: Normal speech, gait not observed. PSYCH: Normal mood, normal affect. SKIN: Left nephrostomy tube intact, draining cloudy urine with sediments. Laboratory Results - last 24 hr 10/28/16 10/28/16 10:30 10:30 WBC 15.1 H RBC 2.81 L Hgb 8.6 L D Hct 26.7 L MCV 95.2 MCHC 32.2 RDW 16.8 H Plt Count 350 MPV 7.4 L Neutrophils % 76.6 D Lymphocytes % 8.3 D Monocytes % 13.3 H D Eosinophils % 0.7 D Basophils % 1.1 Sodium 140 Potassium 4.1 Chloride 103 Carbon Dioxide 29 Anion Gap 8 BUN 26 H Creatinine 1.5 H Random Glucose 101 Calcium 8.4 L Active Medications Generic Name Dose Route Start Last Admin Trade Name Freq PRN Reason Stop Dose Admin Acetaminophen 650 mg 10/28/16 07:19 Tylenol - PO Q6H PRN FEVER OR PAIN Al Hydroxide/Mg Hydroxide 30 ml 10/28/16 07:19 Mylanta Oral Suspension - PO Q6H PRN PAIN Albuterol Sulfate 1 amp 10/28/16 12:00 10/28/16 11:25 Ventolin 0.5% - NEB Not Given QIDR NASIR Albuterol/Ipratropium 1 amp 10/28/16 07:19 Duoneb - NEB Q6H PRN SHORTNESS OF BREATH Aspirin 81 mg 10/28/16 11:45 10/28/16 12:00 Ecotrin - PO 81 mg DAILY NASIR Administration Atorvastatin Calcium 20 mg 10/28/16 22:00 Lipitor - PO HS NASIR Clonazepam 1 mg 10/28/16 10:00 10/28/16 09:27 Klonopin - PO 1 mg BID NASIR Administration Clopidogrel Bisulfate 75 mg 10/30/16 10:00 Plavix - PO MoWeFr@1000 NASIR Docusate Sodium 300 mg 10/28/16 22:00 Colace - PO HS NASIR Enoxaparin Sodium 40 mg 10/28/16 21:00 Lovenox - SQ DAILY NASIR Finasteride 5 mg 10/28/16 10:00 10/28/16 09:27 Proscar - PO 5 mg DAILY NASIR Administration Sodium Chloride 1,000 mls @ 100 mls/hr 10/27/16 23:00 10/27/16 23:50 Normal Saline - IV 100 mls/hr ASDIR NASIR Administration Piperacillin Sod/Tazobactam Sod 50 mls @ 100 mls/hr 10/28/16 11:45 10/28/16 12: 00 Zosyn 3.375gm Ivpb (Pre-Docked) IVPB 100 mls/hr Q8H-IV NASIR Administration Protocol Metoprolol Succinate 25 mg 10/28/16 10:00 10/28/16 09:36 Toprol Xl - PO 25 mg DAILY NASIR Administration Pantoprazole Sodium 40 mg 10/28/16 10:00 10/28/16 09:27 Protonix - PO 40 mg DAILY NASIR Administration Tamsulosin HCl 0.4 mg 10/28/16 08:30 10/28/16 09:27 Flomax - PO 0.4 mg BID@0830,2200 NASIR Administration Tiotropium [place] 1 puff 10/28/16 10:00 10/28/16 11:38 Spiriva - IH 1 puff DAILY NASIR Administration ASSESSMENT/PLAN: Patient is a 71 year-old male who resides at [facility]. He has a significant past medical history of TURP, HTN, HLD, CAD, nephrostomy tube of left kidney, thyroid disease s/p thyroidectomy and lung CA s/p lobectomy. He presented to the Ed on 10/28/2016 with fever and chills and to rule out sepsis. On 07/2016 he was admitted for septic shock secondary to a perforated viscous. At that time he was also found to be in renal failure and underwent a left percutanous nephrostomy for 1cm obstructing L UPJ calculus and L hydronephrosis. He was scheduled for a follow up with his urologist @ [facility], but has not yet seen his urologist. He was most recently @ [facility] on 10/07/2016 for UTI, hematuria. During that admission, he underwent a nephrostogram and the report findings demonstrated an adequately positioned nephrostomy tube in the left renal pelvis. Numerous large stones were seen in the left kidney including a large stone in the proximal left ureter measuring 1cm resulting in high grade stenosis with trickle of contrast going distally into a tortuous ureter 2 small stones are also seen in the distal left ureter. On assessment patient denies chest pain or shortness of breath. The patient denies abdominal pain, nausea, vomit or diarrhea. Met SIRS criteria: febrile 102F, tachycardia 120s, leukocytosis 19.2. He was given Meropenum, and ID was consulted. Imaging: Chest Xray 10/28/2016: course lung findings, old rib trauma, questionable density on left upper lung field, possible early RUL infiltrate Renal Ultrasound 10/28/2016: right kidney unremarkable, multiple renal stones and 2 small cystss, no evidence of hydronephrosis, large stone 9x7mm ID: Sepsis: met SIRS criteria. Urosepsis vs. Pneumonia Assessment/Plan: Sepsis likely secondary to Urosepsis vs. Pneumonia custodial correction resident UA with +3 blood, 1500 WBC, urine cloudy with sediment Urine and blood cultures pending Monitor fever trend, tylenol as needed Given Meropenumin ER ID started on Vanco and Zosyn On IVF, monitor for fluid overload GI: Acute on Chronic Kidney Disease Assessment/Plan: Bun/Creat 26/1.5, baseline ~ 1.3 s/p neprhostomy tube placement 09/2016 Renal ultrasound shows multiple renal stones and 2 small cystss, no evidence of hydronephrosis, large stone 9x7mm Urology consulted On IV hydration Cardiology: CAD s/p AL - history of AL Assessment/Plan: On ASA and Plavix daily - ASA daily, Plavix MWF On Metoprolol 25mg daily EKG: NSR 93bpm, left axis deviation no significant change compared to prior study 09/2016 Hypertension - chronic Assessment/Plan: On Metoprolol 25mg Monitor BPs in the setting of sepsis Hematology: Anemia - chronic Assessment/Plan: Low hmg/hct - low stable since admission. asymptomatic If falls <8 will transfuse Pulmonary: Left lung atelectasis - chronic Assessment/Plan: Left lung consolidation Encouraged to use incentive spirometer Oxygen 2.5 liters as needed which he uses at the facility Left lung cancer/s/p left Lobectomy Assessment/Plan: On continuous oxygen @2.5 liters Disposition: Requires inpatient hospitalization. full code. Visit type - Emergency Visit Emergency Visit: Yes ED Registration Date: 10/28/16 Care time: The patient presented to the Emergency Department on the above date and was hospitalized for further evaluation of their emergent condition. - New Patient This patient is new to me today: No - Critical Care Critical Care patient: No - Discharge Referral Referred to [facility] No
[2016-10-28] MEDS: MAG HYDROX/AL HYDROX/SIMETH 30 ML UNIT-DOSE CUP PO PRN (17:57)
--- NOTE | 2016-10-28 21:32 | CONS ---
DATE OF CONSULTATION: 10/28/2016 The patient is a 71-year-old male evaluated for sepsis. The [facility], with reports of fever and chills. He was evaluated in the emergency room where initial evaluation showed pyuria. He was empirically treated with meropenem. The patient is awake and alert. He has no focal complaint at the present time. His course has been notable for fever to 102.7. He denies any abdominal pain. No complaints of chest pain, shortness of breath, cough, sputum production, vomiting, or grossly purulent urine. He has an indwelling Shaw catheter and a left percutaneous nephrostomy. Both tubes have been draining well. No reports of grossly purulent urine in the collection bags. The patient has a complicated recent past medical history. He was hospitalized in July of 2016 with septic shock. He had presented at that time with abdominal pain and was found to have a perforated peptic ulcer. His course was complicated by obstructive uropathy secondary to a left nephrolith requiring a percutaneous nephrostomy. He also had urethral stricture which required a suprapubic catheter. He had been rehospitalized with suspected urosepsis after his percutaneous tube became dislodged. He is presently residing in the [facility] facility with the nephrostomy tube. Plans were made for internalization of a left ureteral stent. Past medical history also positive for BPH, hypertension, hyperlipidemia, coronary artery disease, myocardial infarction, thyroid disease, lung cancer, peripheral vascular disease, COPD. PAST SURGICAL HISTORY: Status post lobectomy, nephrostomy tube, and thyroidectomy. ALLERGIES: No known allergies. MEDICATIONS: Include Spiriva, Ventolin, Lipitor, Klonopin, Plavix, Colace, Proscar, Toprol, Protonix, Flomax. SOCIAL HISTORY: He is presently living in a [facility] facility. Former smoker. No history of alcohol abuse. REVIEW OF SYSTEMS: Neurologic: No loss of consciousness, seizure activity, focal weakness. Cardiac: Negative chest pain or palpitations. Respiratory: Negative cough or sputum production. Gastrointestinal: Negative vomiting or diarrhea. Genitourinary: As per HPI. LABORATORY DATA: White count on admission 19,000, presently 15,000, hematocrit 26.7, platelet count 350, BUN 8, creatinine 1.5. Urinalysis with 1581 white cells. Blood and urine cultures are pending. Chest x-ray shows increased markings bilaterally, possible right upper lobe infiltrate. Sonogram shows left nephrolithiasis with no evidence of hydronephrosis. PHYSICAL EXAMINATION: General: He is chronically ill appearing, in no acute distress. Vital Signs: T-max 102.7. Blood pressure 106/38, pulse 120, regular. Respirations 20 per minute. HEENT: Sclerae are anicteric. Cardiovascular: Heart sounds S1, S2. Lungs: Diminished breath sounds bilaterally. Abdomen: Soft. No tenderness elicited. No mass, rebound, or rigidity. No suprapubic or flank tenderness. There is Shaw catheter in place draining concentrated urine. A left percutaneous nephrostomy is in place also draining concentrated urine. Extremities: With 1+ edema. IMPRESSION: 1. Sepsis, possible lung versus urinary tract focus. 2. Urinary tract infection. 3. Obstructive uropathy status post left percutaneous nephrostomy. 4. History of methicillin-resistant Staphylococcus aureus. PLAN: Await culture results, empiric antibiotic coverage with Zosyn and stat dose vancomycin pending sepsis workup. Patient has had pseudomonas isolated in the urine in the past, which was sensitive to Zosyn. Urology followup. Will follow. Thank you for the kind referral. NICANOR GALDAMEZ M.D. [id number]
[2016-10-28] MEDS: ATORVASTATIN CA 20 MG TABLET (FP) PO SCH (21:44)
[2016-10-28] MEDS: ENOXAPARIN NA (PORCINE) 40 MG/0.4 ML DISP.SYRIN SQ SCH (21:44)
[2016-10-28] MEDS: SODIUM CHLORIDE 1,000 ML IV SCH ×2 (21:48→23:00)
[2016-10-28] MEDS: DOCUSATE SODIUM 100 MG CAPSULE (FP) PO SCH (21:48)
[2016-10-28] MEDS ORDERED: ALBUTEROL SO4 0.083% IH SOL 2.5 MG/3 ML VIAL.NEB. NEB ONE (21:49)
[2016-10-29] MEDS: PIPERACILLIN/TAZOB 3.375 GM 50 ML IVPB SCH ×3 (01:11→17:09)
[2016-10-29] MEDS ORDERED: ALBUTEROL SO4 0.083% IH SOL 2.5 MG/3 ML VIAL.NEB. NEB ONE (06:42)
[2016-10-29] MEDS: ALBUTEROL SO4 0.5 % INH SOLN 2.5 MG/0.5 ML VIAL.NEB. NEB SCH ×4 (06:53→23:45)
[2016-10-29 08:24] LABS: BASOPHIL 1.4 % (0-2.0); EOSINOPHIL 3.9 % (0-4.5); MCH 31.2 pg (25.7-33.7); MCHC 32.9 g/dl (32.0-35.9); MEAN CELL VOLUME 94.8 fl (80-96); MEAN PLT VOLUME 7.8 fl (7.5-11.1); NEUTROPHILS 63.3 % (42.8-82.8); PLATELET COUNT 340 K/MM3 (134-434); WHITE BLOOD COUNT 10.8 K/mm3 (4.0-10.0)
--- NOTE | 2016-10-29 08:33 | PN ---
Progress Note, Physician Chief Complaint: ID Subjective improvement today Zosyn dose Vancomycin No complaints - Current Medication List Current Medications: Active Medications Acetaminophen (Tylenol -) 650 mg PO Q6H PRN PRN Reason: FEVER OR PAIN Al Hydroxide/Mg Hydroxide (Mylanta Oral Suspension -) 30 ml PO Q6H PRN PRN Reason: PAIN Last Admin: 10/28/16 17:57 Dose: 30 ml Albuterol Sulfate (Ventolin 0.5% -) 1 amp NEB QIDR [facility] Last Admin: 10/29/16 06:53 Dose: 1 amp Albuterol/Ipratropium (Duoneb -) 1 amp NEB Q6H PRN PRN Reason: SHORTNESS OF BREATH Aspirin (Ecotrin -) 81 mg PO DAILY [facility] Last Admin: 10/28/16 12:00 Dose: 81 mg Atorvastatin Calcium (Lipitor -) 20 mg PO HS [facility] Last Admin: 10/28/16 21:44 Dose: 20 mg Clonazepam (Klonopin -) 1 mg PO BID [facility] Last Admin: 10/28/16 21:44 Dose: 1 mg Clopidogrel Bisulfate (Plavix -) 75 mg PO MoWeFr@1000 [facility] Docusate Sodium (Colace -) 300 mg PO HS [facility] Last Admin: 10/28/16 21:48 Dose: Not Given Enoxaparin Sodium (Lovenox -) 40 mg SQ DAILY [facility] Last Admin: 10/28/16 21:44 Dose: 40 mg Finasteride (Proscar -) 5 mg PO DAILY [facility] Last Admin: 10/28/16 09:27 Dose: 5 mg Sodium Chloride (Normal Saline -) 1,000 mls @ 100 mls/hr IV ASDIR [facility] Last Admin: 10/28/16 23:00 Dose: Not Given Piperacillin Sod/Tazobactam Sod (Zosyn 3.375gm Ivpb (Pre-Docked)) 50 mls @ 100 mls/hr IVPB Q8H-IV [facility] PRN Reason: Protocol Last Admin: 10/29/16 01:11 Dose: 100 mls/hr Metoprolol Succinate (Toprol Xl -) 25 mg PO DAILY [facility] Last Admin: 10/28/16 09:36 Dose: 25 mg Pantoprazole Sodium (Protonix -) 40 mg PO DAILY [facility] Last Admin: 10/28/16 09:27 Dose: 40 mg Tamsulosin HCl (Flomax -) 0.4 mg PO BID@0830,2200 [facility] Last Admin: 10/28/16 21:44 Dose: 0.4 mg Tiotropium [place] (Spiriva -) 1 puff IH DAILY [facility] Last Admin: 10/28/16 11:38 Dose: 1 puff - Objective Vital Signs: Vital Signs Temperature 97.8 F 10/29/16 08:00 Pulse Rate 89 10/29/16 08:00 Respiratory Rate 20 10/29/16 08:00 Blood Pressure 114/54 10/29/16 08:00 O2 Sat by Pulse Oximetry (%) 97 10/28/16 20:20 Constitutional: Yes: Well Nourished, No Distress HENT: Yes: WNL, Atraumatic Neck: Yes: WNL, Supple Cardiovascular: Yes: Regular Rate and Rhythm, S1, S2. No: Murmur Respiratory: Yes: WNL, Regular, CTA Bilaterally, Diminished Gastrointestinal: Yes: Normal Bowel Sounds, Soft. No: Tenderness, Tenderness, Rebound, Other Genitourinary: Yes: Other (LEft nephrostomy) Edema: No Labs: CBC, BMP 10/29/16 07:30 Problem List - Problems (1) UTI (urinary tract infection) due to urinary indwelling catheter Code(s): T83.51XA - N39.0 - URINARY TRACT INFECTION, SITE NOT SPECIFIED Assessment/Plan Microbiology 10/27/16 23:00 Blood - Peripheral Venous Blood Culture - Preliminary NO GROWTH OBTAINED AFTER 24 HOURS, INCUBATION TO CONTINUE FOR 4 DAYS. Laboratory Tests 10/27/16 10/28/16 10/28/16 23:00 10:30 10:30 WBC 19.2 H D 15.1 H Hgb Hct Plt Count BUN 26 H Creatinine 1.5 H 10/29/16 07:30 WBC 10.8 H Hgb 8.2 L Hct 24.8 L Plt Count 340 BUN Creatinine Assessment Nephrostomy tube with infection UTI Plan Continue Zosyn day 2 antibiotic Urine c/s pending Improving Keith TELOL
[2016-10-29 08:59] LABS: ALBUMIN 2.1 g/dl (3.4-5.0); MAGNESIUM 1.9 mg/dL (1.8-2.4)
[2016-10-29] MEDS ORDERED: PT OWN MED DRAWER 7, Y5N ONE ×2 (08:59→18:05)
[2016-10-29 09:04] LABS: BILIRUBIN,TOTAL 0.3 mg/dL (0.2-1.0); CREATININE 1.5 mg/dL (0.7-1.3); PHOSPHOROUS 3.9 mg/dL (2.5-4.9); TOT PROT 5.4 g/dl (6.4-8.2)
[2016-10-29] MEDS: SODIUM CHLORIDE 1,000 ML IV SCH ×3 (09:09→23:00)
[2016-10-29] MEDS: PANTOPRAZOLE 40 MG TABLET (FP) PO SCH (09:11)
[2016-10-29] MEDS: clonazePAM 0.5 MG TABLET PO SCH ×2 (09:11→21:34)
[2016-10-29] MEDS: FINASTERIDE 5 MG TABLET (FP) PO SCH (09:11)
[2016-10-29] MEDS: METOPROLOL SUCCINATE 25 MG TAB.SR.24H (FP) PO SCH (09:11)
[2016-10-29] MEDS: TAMSULOSIN HCL 0.4 MG CAP.ER.24H (FP) PO SCH ×2 (09:11→21:35)
[2016-10-29] MEDS: ASPIRIN COATED 81 MG TABLET.EC PO SCH (09:12)
[2016-10-29] MEDS: TIOTROPIUM BROMIDE 18 MCG/INH (DEVICE W/ 5 CAPSULES) IH SCH (09:12)
[2016-10-29] MEDS: ENOXAPARIN NA (PORCINE) 40 MG/0.4 ML DISP.SYRIN SQ SCH (09:12)
--- NOTE | 2016-10-29 17:40 | PN ---
Physical Exam: SUBJECTIVE: Patient seen and examined. Patient states he feels well, denies any chest pain or discomfort. Patient refusing repet CT scan or having his nephrostomy tube evaluated for patency. He is in agreement with the IV antibiotics for acute UTI, but defers all further treatments regarding nephrostomy tube to his urologist Dr. Crocker @ [place]. OBJECTIVE: Vital Signs Period Temp Pulse Resp BP Sys/Tomlinson Pulse Ox Last 24 Hr 97.8 F-98.1 F 80-95 18-20 96-116/45-58 96-97 GENERAL: The patient is awake, alert, and fully oriented, in no acute distress. HEAD: Normal with no signs of trauma. EYES: PERRL, extraocular movements intact, sclera anicteric, conjunctiva clear. No ptosis. ENT: Ears normal, nares patent, oropharynx clear without exudates, moist mucous membranes. NECK: Trachea midline, full range of motion, supple. LUNGS: Left lung with course rhonchi, right lung diminished, 02 dependent at [facility], on continuous 2 liters of [place] HEART: Regular rate and rhythm, S1, S2 without murmur, rub or gallop. ABDOMEN: Soft, nontender, nondistended, normoactive bowel sounds, no guarding, no rebound, no hepatosplenomegaly, no masses. EXTREMITIES: 2+ pulses, warm, well-perfused, no edema. NEUROLOGICAL: Normal speech, gait not observed. PSYCH: Normal mood, normal affect. SKIN: Left nephrostomy tube intact, draining cloudy urine with sediments. Laboratory Results - last 24 hr 10/29/16 10/29/16 07:30 07:30 WBC 10.8 H RBC 2.61 L Hgb 8.2 L Hct 24.8 L MCV 94.8 MCHC 32.9 RDW 17.0 H Plt Count 340 MPV 7.8 Neutrophils % 63.3 Lymphocytes % 15.9 D Monocytes % 15.5 H Eosinophils % 3.9 D Basophils % 1.4 Sodium 142 Potassium 4.3 Chloride 105 Carbon Dioxide 30 Anion Gap 7 L BUN 22 H Creatinine 1.5 H Creat Clearance w eGFR 46.27 Random Glucose 100 Calcium 8.0 L Phosphorus 3.9 Magnesium 1.9 Total Bilirubin 0.3 D AST 9 L D ALT 11 L Alkaline Phosphatase 57 Total Protein 5.4 L Albumin 2.1 L Active Medications Generic Name Dose Route Start Last Admin Trade Name Freq PRN Reason Stop Dose Admin Acetaminophen 650 mg 10/28/16 07:19 Tylenol - PO Q6H PRN FEVER OR PAIN Al Hydroxide/Mg Hydroxide 30 ml 10/28/16 07:19 10/28/16 17:57 Mylanta Oral Suspension - PO 30 ml Q6H PRN Administration PAIN Albuterol Sulfate 1 amp 10/28/16 12:00 10/29/16 11:49 Ventolin 0.5% - NEB 1 amp QIDR [facility] Administration Albuterol/Ipratropium 1 amp 10/28/16 07:19 Duoneb - NEB Q6H PRN SHORTNESS OF BREATH Aspirin 81 mg 10/28/16 11:45 10/29/16 09:12 Ecotrin - PO 81 mg DAILY [facility] Administration Atorvastatin Calcium 20 mg 10/28/16 22:00 10/28/16 21:44 Lipitor - PO 20 mg HS [facility] Administration Clonazepam 1 mg 10/28/16 10:00 10/29/16 09:11 Klonopin - PO 1 mg BID [facility] Administration Clopidogrel Bisulfate 75 mg 10/30/16 10:00 Plavix - PO MoWeFr@1000 [facility] Docusate Sodium 300 mg 10/28/16 22:00 10/28/16 21:48 Colace - PO Not Given HS [facility] Enoxaparin Sodium 40 mg 10/28/16 21:00 10/29/16 09:12 Lovenox - SQ 40 mg DAILY [facility] Administration Finasteride 5 mg 10/28/16 10:00 10/29/16 09:11 Proscar - PO 5 mg DAILY [facility] Administration Sodium Chloride 1,000 mls @ 100 mls/hr 10/27/16 23:00 10/29/16 09:09 Normal Saline - IV 100 mls/hr ASDIR [facility] Administration Piperacillin Sod/Tazobactam Sod 50 mls @ 100 mls/hr 10/28/16 11:45 10/29/16 17: 09 Zosyn 3.375gm Ivpb (Pre-Docked) IVPB 100 mls/hr Q8H-IV [facility] Administration Protocol Metoprolol Succinate 25 mg 10/28/16 10:00 10/29/16 09:11 Toprol Xl - PO 25 mg DAILY [facility] Administration Pantoprazole Sodium 40 mg 10/28/16 10:00 10/29/16 09:11 Protonix - PO 40 mg DAILY [facility] Administration Tamsulosin HCl 0.4 mg 10/28/16 08:30 10/29/16 09:11 Flomax - PO 0.4 mg BID@0830,2200 [facility] Administration Tiotropium [place] 1 puff 10/28/16 10:00 10/29/16 09:12 Spiriva - IH 1 puff DAILY [facility] Administration ASSESSMENT/PLAN: Patient is a 71 year-old male who resides at [facility]. He has a significant past medical history of TURP, HTN, HLD, CAD, nephrostomy tube of left kidney, thyroid disease s/p thyroidectomy and lung CA s/p lobectomy. He presented to the Ed on 10/28/2016 with fever and chills and to rule out sepsis. On 07/2016 he was admitted for septic shock secondary to a perforated viscous. At that time he was also found to be in renal failure and underwent a left percutanous nephrostomy for 1cm obstructing L UPJ calculus and L hydronephrosis. He was scheduled for a follow up with his urologist @ [place], but has not yet seen his urologist. He was most recently @ [place] on 10/07/2016 for UTI, hematuria. During that admission, he underwent a nephrostogram and the report findings demonstrated an adequately positioned nephrostomy tube in the left renal pelvis. Numerous large stones were seen in the left kidney including a large stone in the proximal left ureter measuring 1cm resulting in high grade stenosis with trickle of contrast going distally into a tortuous ureter 2 small stones are also seen in the distal left ureter. On assessment patient denies chest pain or shortness of breath. The patient denies abdominal pain, nausea, vomit or diarrhea. Met SIRS criteria: febrile 102F, tachycardia 120s, leukocytosis 19.2. He was given Meropenum, and ID was consulted. Imaging: Chest Xray 10/28/2016: course lung findings, old rib trauma, questionable density on left upper lung field, possible early RUL infiltrate Renal Ultrasound 10/28/2016: right kidney unremarkable, multiple renal stones and 2 small cystss, no evidence of hydronephrosis, large stone 9x7mm ID: Sepsis: met SIRS criteria. Urosepsis vs. Pneumonia Assessment/Plan: Sepsis likely secondary to Urosepsis vs. 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 UA with +3 blood, 1500 WBC, urine cloudy with sediment Urine culture with lactose fermenting nec bacilli/blood cultures pending Monitor fever trend, tylenol as needed Given Meropenumin ER, started on Zosyn by ID on 10/28/2016 On IVF, monitor for fluid overload : Acute on Chronic Kidney Disease Assessment/Plan: Bun/Creat 22/1.5, baseline ~ 1.3 s/p neprhostomy tube placement 09/2016 Renal ultrasound shows multiple renal stones and 2 small cystss, no evidence of hydronephrosis, large stone 9x7mm Urology consulted, continue IV hydration Cardiology: CAD s/p [place] - history of [place] Assessment/Plan: On ASA and Plavix daily - ASA daily, Plavix MWF On Metoprolol 25mg daily EKG: NSR 93bpm, left axis deviation no significant change compared to prior study 09/2016 Hypertension - chronic Assessment/Plan: On Metoprolol 25mg Monitor BPs in the setting of sepsis Hematology: Anemia - chronic Assessment/Plan: Low hmg/hct - low stable since admission. asymptomatic If falls <8 will transfuse Pulmonary: Left lung atelectasis - chronic Assessment/Plan: Left lung consolidation Encouraged to use incentive spirometer Oxygen 2.5 liters as needed which he uses at the facility Left lung cancer/s/p left Lobectomy Assessment/Plan: On continuous oxygen @2.5 liters Disposition: Requires inpatient hospitalization. full code. Visit type - Emergency Visit Emergency Visit: Yes ED Registration Date: 10/28/16 Care time: The patient presented to the Emergency Department on the above date and was hospitalized for further evaluation of their emergent condition. - New Patient This patient is new to me today: No - Critical Care Critical Care patient: No - Discharge Referral Referred to [facility] No
[2016-10-29] MEDS: ATORVASTATIN CA 20 MG TABLET (FP) PO SCH (21:33)
[2016-10-29] MEDS: MAG HYDROX/AL HYDROX/SIMETH 30 ML UNIT-DOSE CUP PO PRN (21:34)
[2016-10-29] MEDS: DOCUSATE SODIUM 100 MG CAPSULE (FP) PO SCH (21:34)
--- NOTE | 2016-10-29 21:41 | EKG ---
Test Reason : Blood Pressure : / mmHG Vent. Rate : 093 BPM Atrial Rate : 093 BPM P-R Int : 178 ms QRS Dur : 092 ms QT Int : 366 ms P-R-T Axes : 077 -31 047 degrees QTc Int : 455 ms NORMAL SINUS RHYTHM LEFT AXIS DEVIATION LOW VOLTAGE QRS ABNORMAL ECG WHEN COMPARED WITH ECG OF 07-OCT-2016 13:43, LEFT AXIS DEVIATION IS NOW PRESENT Confirmed by LUISITO TELLO, MAY ([id number]) on 10/29/2016 9:41:14 PM Referred By: Confirmed By:MAY JORGE MD
[2016-10-30] MEDS: PIPERACILLIN/TAZOB 3.375 GM 50 ML IVPB SCH ×2 (01:21→09:34)
[2016-10-30] MEDS: SODIUM CHLORIDE 1,000 ML IV SCH ×2 (06:23→23:55)
[2016-10-30] MEDS: ALBUTEROL SO4 0.5 % INH SOLN 2.5 MG/0.5 ML VIAL.NEB. NEB SCH ×4 (06:43→23:27)
[2016-10-30 07:30] LABS: BASOPHIL 1.4 % (0-2.0); EOSINOPHIL 5.8 % (0-4.5); MCHC 32.6 g/dl (32.0-35.9); MEAN PLT VOLUME 7.8 fl (7.5-11.1); PLATELET COUNT 351 K/MM3 (134-434); RDW 16.7 % (11.9-15.9); WHITE BLOOD COUNT 8.1 K/mm3 (4.0-10.0)
[2016-10-30 08:06] LABS: ALBUMIN 2.1 g/dl (3.4-5.0); CALCIUM 8.2 mg/dL (8.5-10.1)
[2016-10-30 08:11] LABS: BILIRUBIN,TOTAL 0.2 mg/dL (0.2-1.0); CREATININE 1.4 mg/dL (0.7-1.3); TOT PROT 5.4 g/dl (6.4-8.2)
[2016-10-30] MEDS ORDERED: PT OWN MED DRAWER 7, Y5N ONE (09:23)
[2016-10-30] MEDS: TAMSULOSIN HCL 0.4 MG CAP.ER.24H (FP) PO SCH ×2 (09:32→21:44)
[2016-10-30] MEDS: ASPIRIN COATED 81 MG TABLET.EC PO SCH (09:33)
[2016-10-30] MEDS: CLOPIDOGREL BISULFATE 75 MG TABLET (FP) PO SCH (09:33)
[2016-10-30] MEDS: clonazePAM 0.5 MG TABLET PO SCH ×2 (09:33→21:39)
[2016-10-30] MEDS: METOPROLOL SUCCINATE 25 MG TAB.SR.24H (FP) PO SCH (09:33)
[2016-10-30] MEDS: FINASTERIDE 5 MG TABLET (FP) PO SCH (09:34)
[2016-10-30] MEDS: PANTOPRAZOLE 40 MG TABLET (FP) PO SCH (09:34)
[2016-10-30] MEDS: TIOTROPIUM BROMIDE 18 MCG/INH (DEVICE W/ 5 CAPSULES) IH SCH (09:34)
[2016-10-30] MEDS: ENOXAPARIN NA (PORCINE) 40 MG/0.4 ML DISP.SYRIN SQ SCH (09:34)
--- NOTE | 2016-10-30 12:10 | PN ---
Progress Note, Physician History of Present Illness: Awake, alert No c/o pain Temps down- afebrile WBC improved Urine c/s ESBL BC GPR - Current Medication List Current Medications: Active Medications Acetaminophen (Tylenol -) 650 mg PO Q6H PRN PRN Reason: FEVER OR PAIN Al Hydroxide/Mg Hydroxide (Mylanta Oral Suspension -) 30 ml PO Q6H PRN PRN Reason: PAIN Last Admin: 10/29/16 21:34 Dose: 30 ml Albuterol Sulfate (Ventolin 0.5% -) 1 amp NEB QIDR [facility] Last Admin: 10/30/16 11:21 Dose: 1 amp Albuterol/Ipratropium (Duoneb -) 1 amp NEB Q6H PRN PRN Reason: SHORTNESS OF BREATH Aspirin (Ecotrin -) 81 mg PO DAILY [facility] Last Admin: 10/30/16 09:33 Dose: 81 mg Atorvastatin Calcium (Lipitor -) 20 mg PO HS [facility] Last Admin: 10/29/16 21:33 Dose: 20 mg Clonazepam (Klonopin -) 1 mg PO BID [facility] Last Admin: 10/30/16 09:33 Dose: 1 mg Clopidogrel Bisulfate (Plavix -) 75 mg PO MoWeFr@1000 [facility] Last Admin: 10/30/16 09:33 Dose: 75 mg Docusate Sodium (Colace -) 300 mg PO HS [facility] Last Admin: 10/29/16 21:34 Dose: Not Given Enoxaparin Sodium (Lovenox -) 40 mg SQ DAILY [facility] Last Admin: 10/30/16 09:34 Dose: 40 mg Ertapenem (Invanz (Pre-Docked)) 1 gm IVPB DAILY [facility] Finasteride (Proscar -) 5 mg PO DAILY [facility] Last Admin: 10/30/16 09:34 Dose: 5 mg Sodium Chloride (Normal Saline -) 1,000 mls @ 100 mls/hr IV ASDIR [facility] Last Admin: 10/30/16 06:23 Dose: 100 mls/hr Metoprolol Succinate (Toprol Xl -) 25 mg PO DAILY [facility] Last Admin: 10/30/16 09:33 Dose: 25 mg Pantoprazole Sodium (Protonix -) 40 mg PO DAILY [facility] Last Admin: 10/30/16 09:34 Dose: 40 mg Tamsulosin HCl (Flomax -) 0.4 mg PO BID@0830,2200 [facility] Last Admin: 10/30/16 09:32 Dose: 0.4 mg Tiotropium [place] (Spiriva -) 1 puff IH DAILY [facility] Last Admin: 10/30/16 09:34 Dose: 1 puff - Objective Vital Signs: Vital Signs Temperature 97.6 F 10/30/16 08:00 Pulse Rate 99 H 10/30/16 11:25 Respiratory Rate 20 10/30/16 08:00 Blood Pressure 134/72 10/30/16 08:00 O2 Sat by Pulse Oximetry (%) 97 10/30/16 11:25 Constitutional: Yes: No Distress Eyes: Yes: Conjunctiva Clear Cardiovascular: Yes: Regular Rate and Rhythm, S1, S2 Respiratory: Yes: Diminished Gastrointestinal: Yes: Normal Bowel Sounds, Soft, Other (PCN L flank with clear urine drainage). No: Tenderness Edema: No Labs: CBC, BMP 10/30/16 06:05 10/30/16 06:05 Assessment/Plan UTI-ESBL/ Possible sepsis secondary to UTI Obstructive uropathy s/p PCN Azotemia Leukocytosis-improved Substitute ertapenem For replacement of PCN Contact precautions
[2016-10-30] MEDS ORDERED: ERTAPENEM SODIUM 1 GM/50 ML PRE-DOCKED IVPB SCH (12:15)
[2016-10-30] MEDS: ERTAPENEM SODIUM 1 GM in SODIUM CHLORIDE 50 ML IVPB SCH (14:30)
--- NOTE | 2016-10-30 16:39 | PN ---
Physical Exam: SUBJECTIVE: Patient seen and examined. Patient was initially refusing a nephrostomy tube changed but now in agreement after both patient and I spoke to his urologist Dr. Crocker @ [place] [phone]. Urologist stressed importance of changing neph. tube with patient. Patient now in agreement. Nephrostomy tube changed by IR today. OBJECTIVE: Vital Signs Period Temp Pulse Resp BP Sys/Tomlinson Pulse Ox Last 24 Hr 97.2 F-98.1 F 81-99 16-20 108-160/51-80 96-100 GENERAL: The patient is awake, alert, and fully oriented, in no acute distress. HEAD: Normal with no signs of trauma. EYES: PERRL, extraocular movements intact, sclera anicteric, conjunctiva clear. No ptosis. ENT: Ears normal, nares patent, oropharynx clear without exudates, moist mucous membranes. NECK: Trachea midline, full range of motion, supple. LUNGS: Left lung with course rhonchi, right lung diminished, 02 dependent at [facility], on continuous 2 liters of [place] HEART: Regular rate and rhythm, S1, S2 without murmur, rub or gallop. ABDOMEN: Soft, nontender, nondistended, normoactive bowel sounds, no guarding, no rebound, no hepatosplenomegaly, no masses. EXTREMITIES: 2+ pulses, warm, well-perfused, no edema. NEUROLOGICAL: Normal speech, gait not observed. PSYCH: Normal mood, normal affect. SKIN: Left nephrostomy tube intact. Laboratory Results - last 24 hr 10/30/16 10/30/16 06:05 06:05 WBC 8.1 RBC 2.59 L Hgb 8.0 L Hct 24.6 L MCV 95.0 MCHC 32.6 RDW 16.7 H Plt Count 351 MPV 7.8 Neutrophils % 64.0 Lymphocytes % 15.5 Monocytes % 13.3 H Eosinophils % 5.8 H Basophils % 1.4 Sodium 145 Potassium 4.1 Chloride 109 H Carbon Dioxide 29 Anion Gap 7 L BUN 18 Creatinine 1.4 H Creat Clearance w eGFR 50.10 Random Glucose 95 Calcium 8.2 L Total Bilirubin 0.2 D AST 12 L D ALT 19 D Alkaline Phosphatase 59 Total Protein 5.4 L Albumin 2.1 L Active Medications Generic Name Dose Route Start Last Admin Trade Name Freq PRN Reason Stop Dose Admin Acetaminophen 650 mg 10/28/16 07:19 Tylenol - PO Q6H PRN FEVER OR PAIN Al Hydroxide/Mg Hydroxide 30 ml 10/28/16 07:19 10/29/16 21:34 Mylanta Oral Suspension - PO 30 ml Q6H PRN Administration PAIN Albuterol Sulfate 1 amp 10/28/16 12:00 10/30/16 11:21 Ventolin 0.5% - NEB 1 amp QIDR [facility] Administration Albuterol/Ipratropium 1 amp 10/28/16 07:19 Duoneb - NEB Q6H PRN SHORTNESS OF BREATH Aspirin 81 mg 10/28/16 11:45 10/30/16 09:33 Ecotrin - PO 81 mg DAILY [facility] Administration Atorvastatin Calcium 20 mg 10/28/16 22:00 10/29/16 21:33 Lipitor - PO 20 mg HS [facility] Administration Clonazepam 1 mg 10/28/16 10:00 10/30/16 09:33 Klonopin - PO 1 mg BID [facility] Administration Clopidogrel Bisulfate 75 mg 10/30/16 10:00 10/30/16 09:33 Plavix - PO 75 mg MoWeFr@1000 [facility] Administration Docusate Sodium 300 mg 10/28/16 22:00 10/29/16 21:34 Colace - PO Not Given HS [facility] Enoxaparin Sodium 40 mg 10/28/16 21:00 10/30/16 09:34 Lovenox - SQ 40 mg DAILY [facility] Administration Finasteride 5 mg 10/28/16 10:00 10/30/16 09:34 Proscar - PO 5 mg DAILY [facility] Administration Sodium Chloride 1,000 mls @ 100 mls/hr 10/27/16 23:00 10/30/16 06:23 Normal Saline - IV 100 mls/hr ASDIR [facility] Administration Ertapenem 1 gm/ Sodium 50 mls @ 100 mls/hr 10/30/16 13:15 10/30/16 14:30 Chloride IVPB 100 mls/hr DAILY [facility] Administration Metoprolol Succinate 25 mg 10/28/16 10:00 10/30/16 09:33 Toprol Xl - PO 25 mg DAILY [facility] Administration Pantoprazole Sodium 40 mg 10/28/16 10:00 10/30/16 09:34 Protonix - PO 40 mg DAILY [facility] Administration Tamsulosin HCl 0.4 mg 10/28/16 08:30 10/30/16 09:32 Flomax - PO 0.4 mg BID@0830,2200 [facility] Administration Tiotropium [place] 1 puff 10/28/16 10:00 10/30/16 09:34 Spiriva - IH 1 puff DAILY [facility] Administration ASSESSMENT/PLAN: Patient is a 71 year-old male who resides at [facility]. He has a significant past medical history of TURP, HTN, HLD, CAD, nephrostomy tube of left kidney, thyroid disease s/p thyroidectomy and lung CA s/p lobectomy. He presented to the Ed on 10/28/2016 with fever and chills and to rule out sepsis. On 07/2016 he was admitted for septic shock secondary to a perforated viscous. At that time he was also found to be in renal failure and underwent a left percutanous nephrostomy for 1cm obstructing L UPJ calculus and L hydronephrosis. He was scheduled for a follow up with his urologist @ [place], but has not yet seen his urologist. He was most recently @ [place] on 10/07/2016 for UTI, hematuria. During that admission, he underwent a nephrostogram and the report findings demonstrated an adequately positioned nephrostomy tube in the left renal pelvis. Numerous large stones were seen in the left kidney including a large stone in the proximal left ureter measuring 1cm resulting in high grade stenosis with trickle of contrast going distally into a tortuous ureter 2 small stones are also seen in the distal left ureter. On assessment patient continues to denies chest pain or shortness of breath. The patient denies abdominal pain, nausea, vomit or diarrhea. Met SIRS criteria on admission: febrile 102F, tachycardia 120s, leukocytosis 19.2. He was given Meropenum, and ID was consulted. Imaging: Chest Xray 10/28/2016: course lung findings, old rib trauma, questionable density on left upper lung field, possible early RUL infiltrate Renal Ultrasound 10/28/2016: right kidney unremarkable, multiple renal stones and 2 small cystss, no evidence of hydronephrosis, large stone 9x7mm ID: Sepsis: met SIRS criteria. Urosepsis vs. Pneumonia Assessment/Plan: Sepsis likely secondary to Urosepsis vs. Pneumonia Leukocytosis 19.2>8.1 - resolved UA with +3 blood, 1500 WBC, urine cloudy with sediment Urine culture with Kleb + ESBL, blood cultures pending organism Remains afebrile since 10/28/2016 Now on Ertapenum 1gram/On IVF, monitor for fluid overload Pulmonary: Left lung atelectasis - chronic Assessment/Plan: Left lung consolidation Chest Xray 10/28/2016: course lung findings, old rib trauma, questionable density on left upper lung field, possible early RUL infiltrate Encouraged to use incentive spirometer Oxygen 2.5 liters as needed which he uses at the facility On duonebs Left lung cancer s/p left Lobectomy Assessment/Plan: On continuous oxygen @2.5 liters home o2 dependent : Acute on Chronic Kidney Disease Assessment/Plan: Bun/Creat 18/1.4, baseline ~ 1.3 - improving s/p left neprhostomy tube placement today Urology consulted, continue IV hydration Cardiology: CAD s/p [place] - history of [place] Assessment/Plan: On ASA and Plavix daily - ASA daily, Plavix MWF On Metoprolol 25mg daily EKG: NSR 93bpm, left axis deviation no significant change compared to prior study 09/2016 Hypertension - chronic Assessment/Plan: On Metoprolol 25mg Monitor BPs in the setting of sepsis Hematology: Anemia - chronic Assessment/Plan: Low hmg/hct - low stable since admission. asymptomatic If falls <7 will transfuse Disposition: Requires inpatient hospitalization. full code. Visit type - Emergency Visit Emergency Visit: Yes ED Registration Date: 10/28/16 Care time: The patient presented to the Emergency Department on the above date and was hospitalized for further evaluation of their emergent condition. - New Patient This patient is new to me today: No - Critical Care Critical Care patient: No - Discharge Referral Referred to [facility] No
[2016-10-30] MEDS: MAG HYDROX/AL HYDROX/SIMETH 30 ML UNIT-DOSE CUP PO PRN (21:39)
[2016-10-30] MEDS: ATORVASTATIN CA 20 MG TABLET (FP) PO SCH (21:43)
[2016-10-30] MEDS: DOCUSATE SODIUM 100 MG CAPSULE (FP) PO SCH (21:44)
[2016-10-30] MEDS ORDERED: ALBUTEROL SO4 0.083% IH SOL 2.5 MG/3 ML VIAL.NEB. NEB ONE (23:11)
[2016-10-31] MEDS ORDERED: PT OWN MED DRAWER 7, Y5N ONE ×2 (06:14→09:31)
[2016-10-31] MEDS: ALBUTEROL SO4 0.5 % INH SOLN 2.5 MG/0.5 ML VIAL.NEB. NEB SCH ×4 (06:25→23:08)
[2016-10-31 07:40] LABS: BASOPHIL 1.4 % (0-2.0); EOSINOPHIL 6.1 % (0-4.5); MCHC 32.9 g/dl (32.0-35.9); MEAN CELL VOLUME 94.3 fl (80-96); MEAN PLT VOLUME 7.7 fl (7.5-11.1); NEUTROPHILS 62.2 % (42.8-82.8); PLATELET COUNT 365 K/MM3 (134-434); RDW 16.2 % (11.9-15.9); WHITE BLOOD COUNT 7.2 K/mm3 (4.0-10.0)
[2016-10-31 08:24] LABS: ALBUMIN 2.1 g/dl (3.4-5.0); BILIRUBIN,TOTAL 0.4 mg/dL (0.2-1.0); CALCIUM 8.5 mg/dL (8.5-10.1); CREATININE 1.3 mg/dL (0.7-1.3); TOT PROT 5.4 g/dl (6.4-8.2)
[2016-10-31] MEDS: TIOTROPIUM BROMIDE 18 MCG/INH (DEVICE W/ 5 CAPSULES) IH SCH (10:35)
[2016-10-31] MEDS: TAMSULOSIN HCL 0.4 MG CAP.ER.24H (FP) PO SCH ×2 (10:35→21:31)
[2016-10-31] MEDS: ASPIRIN COATED 81 MG TABLET.EC PO SCH (10:35)
[2016-10-31] MEDS: PANTOPRAZOLE 40 MG TABLET (FP) PO SCH (10:35)
[2016-10-31] MEDS: clonazePAM 0.5 MG TABLET PO SCH ×2 (10:36→21:31)
[2016-10-31] MEDS: ENOXAPARIN NA (PORCINE) 40 MG/0.4 ML DISP.SYRIN SQ SCH (10:36)
[2016-10-31] MEDS: ERTAPENEM SODIUM 1 GM in SODIUM CHLORIDE 50 ML IVPB SCH (10:36)
[2016-10-31] MEDS: FINASTERIDE 5 MG TABLET (FP) PO SCH (10:37)
[2016-10-31] MEDS: METOPROLOL SUCCINATE 25 MG TAB.SR.24H (FP) PO SCH (10:37)
--- NOTE | 2016-10-31 14:19 | PN ---
Physical Exam: SUBJECTIVE: Patient seen and examined. He states he feels better. Eager to go back to [facility]. Denies any chest pain or shortness of breath. He was able to participate with PT yesterday and states he feels stronger and was able to do some exercise. OBJECTIVE: Patient was initially refusing a nephrostomy tube changed but both patient and I spoke to his urologist Dr. [phone], patient agreed to a Neph. tube change which was done yesterday in IR. Vital Signs Period Temp Pulse Resp BP Sys/Tomlinson Pulse Ox Last 24 Hr 97.2 F-98.1 F 80-87 20-20 122-147/67-77 95-100 GENERAL: The patient is awake, alert, and fully oriented, in no acute distress. HEAD: Normal with no signs of trauma. EYES: PERRL, extraocular movements intact, sclera anicteric, conjunctiva clear. No ptosis. ENT: Ears normal, nares patent, oropharynx clear without exudates, moist mucous membranes. NECK: Trachea midline, full range of motion, supple. LUNGS: Left lung with course rhonchi, right lung diminished, [address] [facility], on continuous 2 liters of [place] HEART: Regular rate and rhythm, S1, S2 without murmur, rub or gallop. ABDOMEN: Soft, nontender, nondistended, normoactive bowel sounds, no guarding, no rebound, no hepatosplenomegaly, no masses. EXTREMITIES: 2+ pulses, warm, well-perfused, no edema. NEUROLOGICAL: Normal speech, gait not observed. PSYCH: Normal mood, normal affect. SKIN: Left nephrostomy tube intact - draining clear yellow urine. Hooks draining clear yellow urine. Patient is to leave with a hooks catheter when discharged to [facility]. Laboratory Results - last 24 hr 10/31/16 10/31/16 05:35 05:35 WBC 7.2 RBC 2.62 L Hgb 8.1 L Hct 24.7 L MCV 94.3 MCHC 32.9 RDW 16.2 H Plt Count 365 MPV 7.7 Neutrophils % 62.2 Lymphocytes % 18.1 Monocytes % 12.2 H Eosinophils % 6.1 H Basophils % 1.4 Sodium 145 Potassium 4.3 Chloride 110 H Carbon Dioxide 28 Anion Gap 7 L BUN 15 Creatinine 1.3 Creat Clearance w eGFR 54.57 Random Glucose 92 Calcium 8.5 Total Bilirubin 0.4 D AST 13 L ALT 19 Alkaline Phosphatase 60 Total Protein 5.4 L Albumin 2.1 L Active Medications Generic Name Dose Route Start Last Admin Trade Name Freq PRN Reason Stop Dose Admin Acetaminophen 650 mg 10/28/16 07:19 Tylenol - PO Q6H PRN FEVER OR PAIN Al Hydroxide/Mg Hydroxide 30 ml 10/28/16 07:19 10/30/16 21:39 Mylanta Oral Suspension - PO 30 ml Q6H PRN Administration PAIN Albuterol Sulfate 1 amp 10/28/16 12:00 10/31/16 10:45 Ventolin 0.5% - NEB 1 amp QIDR NASIR Administration Albuterol/Ipratropium 1 amp 10/28/16 07:19 10/30/16 19:30 Duoneb - NEB 1 amp Q6H PRN Administration SHORTNESS OF BREATH Aspirin 81 mg 10/28/16 11:45 10/31/16 10:35 Ecotrin - PO 81 mg DAILY NASIR Administration Atorvastatin Calcium 20 mg 10/28/16 22:00 10/30/16 21:43 Lipitor - PO 20 mg HS ANSIR Administration Clonazepam 1 mg 10/28/16 10:00 10/31/16 10:36 Klonopin - PO 1 mg BID NASIR Administration Clopidogrel Bisulfate 75 mg 10/30/16 10:00 10/30/16 09:33 Plavix - PO 75 mg MoWeFr@1000 NASIR Administration Docusate Sodium 300 mg 10/28/16 22:00 10/30/16 21:44 Colace - PO Not Given HS NASIR Enoxaparin Sodium 40 mg 10/28/16 21:00 10/31/16 10:36 Lovenox - SQ 40 mg DAILY NASIR Administration Finasteride 5 mg 10/28/16 10:00 10/31/16 10:37 Proscar - PO 5 mg DAILY NASIR Administration Ertapenem 1 gm/ Sodium 50 mls @ 100 mls/hr 10/30/16 13:15 10/31/16 10:36 Chloride IVPB 100 mls/hr DAILY NASIR Administration Metoprolol Succinate 25 mg 10/28/16 10:00 10/31/16 10:37 Toprol Xl - PO 25 mg DAILY NASIR Administration Pantoprazole Sodium 40 mg 10/28/16 10:00 10/31/16 10:35 Protonix - PO 40 mg DAILY NASIR Administration Tamsulosin HCl 0.4 mg 10/28/16 08:30 10/31/16 10:35 Flomax - PO 0.4 mg BID@0830,2200 NASIR Administration Tiotropium [place] 1 puff 10/28/16 10:00 10/31/16 10:35 Spiriva - IH 1 puff DAILY NASIR Administration ASSESSMENT/PLAN: Patient is a 71 year-old male who resides at [facility]. He has a significant past medical history of TURP, HTN, HLD, CAD, nephrostomy tube of left kidney, thyroid disease s/p thyroidectomy and lung CA s/p lobectomy. He presented to the Ed on 10/28/2016 with fever and chills and to rule out sepsis. Met SIRS criteria on admission: febrile 102F, tachycardia 120s, leukocytosis 19.2. He was given Meropenum, and ID was consulted. On 07/2016 he was admitted for septic shock secondary to a perforated viscous. At that time he was also found to be in renal failure and underwent a left percutanous nephrostomy for 1cm obstructing L UPJ calculus and L hydronephrosis. He was most recently @ [place] on 10/07/2016 for UTI and hematuria. During that admission, he underwent a nephrostogram and the report findings demonstrated an adequately positioned nephrostomy tube in the left renal pelvis. Numerous large stones were seen in the left kidney including a large stone in the proximal left ureter resulting in high grade stenosis. On 10/30/2016 he underwent a nephrostomy tube exchange in IR. He is scheduled to see his urologist Dr. Crocker @ [facility] for follow up. Imaging: Chest Xray 10/28/2016: course lung findings, old rib trauma, questionable density on left upper lung field, possible early RUL infiltrate Renal Ultrasound 10/28/2016: right kidney unremarkable, multiple renal stones and 2 small cystss, no evidence of hydronephrosis, large stone 9x7mm ID: Sepsis: met SIRS criteria. Urosepsis vs. Pneumonia Assessment/Plan: Sepsis likely secondary to Urosepsis vs. Pneumonia Leukocytosis 19.2>7.2 - resolved UA with +3 blood, 1500 WBC, urine cloudy with sediment Urine culture with Kleb + ESBL, blood cultures pending organism Remains afebrile since 10/28/2016 Now on Ertapenum 1gram since 10/30/2016 ID following Pulmonary: Left lung atelectasis - chronic Assessment/Plan: Left lung consolidation Chest Xray 10/28/2016: course lung findings, old rib trauma, questionable density on left upper lung field, possible early RUL infiltrate Encouraged to use incentive spirometer Oxygen 2.5 liters as needed which he uses at the facility On duonebs IVF fluids d/cd Left lung cancer s/p left Lobectomy Assessment/Plan: On continuous oxygen @2.5 liters home o2 dependent : Acute on Chronic Kidney Disease Assessment/Plan: Bun/Creat 15/1.3, baseline 1.3 s/p left neprhostomy tube placement Urology consulted, continue IV hydration Cardiology: CAD s/p PA - history of PA Assessment/Plan: On ASA and Plavix daily - ASA daily, Plavix MWF On Metoprolol 25mg daily EKG: NSR 93bpm, left axis deviation no significant change compared to prior study 09/2016 Hypertension - chronic Assessment/Plan: On Metoprolol 25mg Monitor BPs in the setting of sepsis Hematology: Anemia - chronic Assessment/Plan: Low hmg/hct - low stable since admission. asymptomatic If falls <7 will transfuse Disposition: Requires inpatient hospitalization. full code. Visit type - Emergency Visit Emergency Visit: Yes ED Registration Date: 10/28/16 Care time: The patient presented to the Emergency Department on the above date and was hospitalized for further evaluation of their emergent condition. - New Patient This patient is new to me today: No - Critical Care Critical Care patient: No - Discharge Referral Referred to [facility] Med P.C.: No
--- NOTE | 2016-10-31 15:51 | PN ---
Progress Note, Physician History of Present Illness: Awake,alert No complaints S/P replacement of L PCN No c/o pain No fever/ chills Temps down-afebrile WBC WNL Azotemia improved - Current Medication List Current Medications: Active Medications Acetaminophen (Tylenol -) 650 mg PO Q6H PRN PRN Reason: FEVER OR PAIN Al Hydroxide/Mg Hydroxide (Mylanta Oral Suspension -) 30 ml PO Q6H PRN PRN Reason: PAIN Last Admin: 10/30/16 21:39 Dose: 30 ml Albuterol Sulfate (Ventolin 0.5% -) 1 amp NEB QIDR [facility] Last Admin: 10/31/16 10:45 Dose: 1 amp Albuterol/Ipratropium (Duoneb -) 1 amp NEB Q6H PRN PRN Reason: SHORTNESS OF BREATH Last Admin: 10/30/16 19:30 Dose: 1 amp Aspirin (Ecotrin -) 81 mg PO DAILY [facility] Last Admin: 10/31/16 10:35 Dose: 81 mg Atorvastatin Calcium (Lipitor -) 20 mg PO HS [facility] Last Admin: 10/30/16 21:43 Dose: 20 mg Clonazepam (Klonopin -) 1 mg PO BID [facility] Last Admin: 10/31/16 10:36 Dose: 1 mg Clopidogrel Bisulfate (Plavix -) 75 mg PO MoWeFr@1000 [facility] Last Admin: 10/30/16 09:33 Dose: 75 mg Docusate Sodium (Colace -) 300 mg PO HS [facility] Last Admin: 10/30/16 21:44 Dose: Not Given Enoxaparin Sodium (Lovenox -) 40 mg SQ DAILY [facility] Last Admin: 10/31/16 10:36 Dose: 40 mg Finasteride (Proscar -) 5 mg PO DAILY [facility] Last Admin: 10/31/16 10:37 Dose: 5 mg Ertapenem 1 gm/ Sodium (Chloride) 50 mls @ 100 mls/hr IVPB DAILY [facility] Last Admin: 10/31/16 10:36 Dose: 100 mls/hr Metoprolol Succinate (Toprol Xl -) 25 mg PO DAILY [facility] Last Admin: 10/31/16 10:37 Dose: 25 mg Pantoprazole Sodium (Protonix -) 40 mg PO DAILY [facility] Last Admin: 10/31/16 10:35 Dose: 40 mg Tamsulosin HCl (Flomax -) 0.4 mg PO BID@0830,2200 [facility] Last Admin: 10/31/16 10:35 Dose: 0.4 mg Tiotropium [place] (Spiriva -) 1 puff IH DAILY [facility] Last Admin: 10/31/16 10:35 Dose: 1 puff - Objective Vital Signs: Vital Signs Temperature 98.4 F 10/31/16 15:07 Pulse Rate 89 10/31/16 15:07 Respiratory Rate 20 10/31/16 15:07 Blood Pressure 122/67 10/31/16 06:30 O2 Sat by Pulse Oximetry (%) 95 10/31/16 11:21 Constitutional: Yes: No Distress Eyes: Yes: Conjunctiva Clear Cardiovascular: Yes: Regular Rate and Rhythm, S1, S2 Respiratory: Yes: CTA Bilaterally Gastrointestinal: Yes: Normal Bowel Sounds, Soft. No: Tenderness Genitourinary: Yes: Other (L PCN + [place]) Edema: No Labs: CBC, BMP 10/31/16 05:35 10/31/16 05:35 Assessment/Plan UTI-ESBL/ Possible sepsis secondary to UTI Obstructive uropathy s/p PCN Azotemia Leukocytosis-improved May substitute po levaquin 500mg qd x 7d
[2016-10-31] MEDS: ATORVASTATIN CA 20 MG TABLET (FP) PO SCH (21:31)
[2016-10-31] MEDS: DOCUSATE SODIUM 100 MG CAPSULE (FP) PO SCH (21:32)
[2016-10-31] MEDS: MAG HYDROX/AL HYDROX/SIMETH 30 ML UNIT-DOSE CUP PO PRN (21:41)
[2016-11-01] MEDS: ALBUTEROL SO4 0.5 % INH SOLN 2.5 MG/0.5 ML VIAL.NEB. NEB SCH ×2 (06:12→11:09)
[2016-11-01] MEDS: TAMSULOSIN HCL 0.4 MG CAP.ER.24H (FP) PO SCH (08:33)
[2016-11-01 08:35] LABS: BASOPHIL 2.1 % (0-2.0); EOSINOPHIL 4.2 % (0-4.5); MCH 30.3 pg (25.7-33.7); MEAN CELL VOLUME 94.8 fl (80-96); MEAN PLT VOLUME 7.7 fl (7.5-11.1); PLATELET COUNT 395 K/MM3 (134-434); RDW 16.6 % (11.9-15.9)
[2016-11-01 09:26] LABS: ALBUMIN 2.3 g/dl (3.4-5.0); BILIRUBIN,TOTAL 0.2 mg/dL (0.2-1.0); CALCIUM 8.8 mg/dL (8.5-10.1); CREATININE 1.2 mg/dL (0.7-1.3); PHOSPHOROUS 4.3 mg/dL (2.5-4.9); TOT PROT 5.6 g/dl (6.4-8.2)
[2016-11-01 09:46] VITALS: BP 128/71
--- NOTE | 2016-11-01 09:55 | CON.GU ---
Consult Consult Specialty:: Urology Reason for Consultation:: Left renal calculi and urosepsis - History of Present Illness Chief Complaint: Infection - History Source History Provided By: Patient Limitations to Obtaining History: No Limitations - Past Medical History [place]: Yes: CVA Cardio/Vascular: Yes: CAD (prior NSTEMI 2006 -> no cardiac cath or PCI at that time due to CKD), HTN, Hyperlipdemia Pulmonary: Yes: Cancer (H/O lung cancer s/p resection in 1996 at [facility]), COPD, Previously Intubated (07/2016) Hepatobiliary: Yes: Cholecystitis Renal/: Yes: Renal Failure, BPH, Renal Calculi, Other (Prostate cancer) Infectious Disease: Yes: Other (UTI) ENT: Yes: Other - Past Surgical History Past Surgical History: Yes: Cholecystectomy, TURP - Alcohol/Substance Use Hx Alcohol Use: No History of Substance Use: reports: None - Smoking History Smoking history: Former smoker Have you smoked in the past 12 months: Yes Aproximately how many cigarettes per day: 12 If you are a former smoker, when did you quit?: 07/2016 - Social History Usual Living Arrangement: With Significant Other History of Recent Travel: No Home Medications - Allergies Allergies/Adverse Reactions: Allergies Allergy/AdvReac Type Severity Reaction Status Date / Time No Known Allergies Allergy Verified 10/28/16 05:59 - Home Medications Home Medications: Ambulatory Orders Tiotropium [place] [Spiriva] 1 inh PO DAILY 07/30/16 Albuterol Sulfate 0.5% [Ventolin 0.5% Nebulizing Soln. -] 1 amp NEB QIDR amp Mag Hydrox/Al Hydrox/Simeth [Mylanta Oral Suspension -] 30 ml PO Q6H PRN Acetaminophen [Tylenol .Regular Strength -] 650 mg PO Q6H PRN #0 tablet Albuterol 2.5/Ipratropium 0.5 [Duoneb -] 1 amp NEB Q6H PRN #0 amp 10/10/16 Atorvastatin Ca [Lipitor] 20 mg PO HS tablet 10/10/16 Clonazepam [Klonopin -] 1 mg PO BID #60 tablet MDD 2 10/10/16 Clopidogrel Bisulfate [Plavix -] 75 mg PO DAILY tablet 10/10/16 Docusate Sodium [Colace -] 300 mg PO HS capsule 10/10/16 Finasteride [Proscar -] 5 mg PO DAILY tablet 10/10/16 Metoprolol Succinate [Toprol XL -] 25 mg PO DAILY tab.sr.24h 10/10/16 Pantoprazole Sodium [Protonix -] 40 mg PO DAILY tablet.ec 10/10/16 Tamsulosin HCl [Flomax -] 0.4 mg PO BID cap.er.24h 10/10/16 Family Disease History - Family Disease History Family Disease History: Other: Father ( from CVA at age 70) Review of Systems - Review of Systems Constitutional: reports: No Symptoms (Had fever at time of admission.) Eyes: reports: No Symptoms HENT: reports: No Symptoms Neck: reports: No Symptoms Cardiovascular: reports: No Symptoms Respiratory: reports: No Symptoms Gastrointestinal: reports: No Symptoms Genitourinary: reports: No Symptoms Breasts: reports: No Symptoms Reported Musculoskeletal: reports: No Symptoms Integumentary: reports: No Symptoms Neurological: reports: No Symptoms Endocrine: reports: No Symptoms Hematology/Lymphatic: reports: No Symptoms Psychiatric: reports: No Symptoms Physical Exam- Vital Signs: Vital Signs Temperature 98.1 F 11/01/16 09:44 Pulse Rate 90 11/01/16 09:44 Respiratory Rate 18 11/01/16 09:44 Blood Pressure 128/71 11/01/16 09:44 O2 Sat by Pulse Oximetry (%) 95 10/31/16 21:00 Constitutional: Yes: Well Nourished Eyes: Yes: WNL HENT: Yes: WNL Neck: Yes: WNL Cardiovascular: Yes: WNL Respiratory: Yes: Cough Gastrointestinal: Yes: WNL Renal/: Yes: WNL, CVA Tenderness - Left (Has left nephrostomy tube draining clear yellow urine. Nephrostomy site clean without evidence of infection.) Kidneys: Yes: Flank Pain Left Pelvis: Yes: WNL Testicles: Yes: WNL Scrotum: Yes: WNL Penis: Yes: WNL Prostate Exam: Yes: Deferred Musculoskeletal: Yes: WNL Extremities: Yes: WNL Edema: No Integumentary: Yes: WNL Wound/Incision: Yes: Clean/Dry (nephrosotmy site without evidence of infection) Neurological: Yes: WNL ...Motor Strength: WNL Psychiatric: Yes: WNL Labs: CBC, BMP 11/01/16 07:10 11/01/16 07:10 Imaging - Results Ultrasound: Report Reviewed Problem List - Problems (1) Renal calculus, left Code(s): N20.0 - CALCULUS OF KIDNEY Assessment/Plan 71 y/o male admitted with uti and urosepsis. Has indwelling left nephrostomy with multiple non obstructing stones in the left renal pelvis. No hydronephrosis noted. Continue appropriate IV antibiotic therapy. Recommend long-term suppressive antiseptic urinary therapy with Methenamine 500 mg po bid once the uti is resolved. This may help decrease the recurrence of uti and does not foster future resistant infections.
[2016-11-01] MEDS ORDERED: PT OWN MED DRAWER 7, Y5N ONE (10:09)
[2016-11-01] MEDS: ENOXAPARIN NA (PORCINE) 40 MG/0.4 ML DISP.SYRIN SQ SCH (10:21)
[2016-11-01] MEDS: METOPROLOL SUCCINATE 25 MG TAB.SR.24H (FP) PO SCH (10:22)
[2016-11-01] MEDS: PANTOPRAZOLE 40 MG TABLET (FP) PO SCH (10:22)
[2016-11-01] MEDS: TIOTROPIUM BROMIDE 18 MCG/INH (DEVICE W/ 5 CAPSULES) IH SCH (10:22)
[2016-11-01] MEDS: clonazePAM 0.5 MG TABLET PO SCH (10:22)
[2016-11-01] MEDS: ASPIRIN COATED 81 MG TABLET.EC PO SCH (10:22)
[2016-11-01] MEDS: FINASTERIDE 5 MG TABLET (FP) PO SCH (10:22)
[2016-11-01] MEDS: CLOPIDOGREL BISULFATE 75 MG TABLET (FP) PO SCH (10:22)
[2016-11-01] MEDS: ERTAPENEM SODIUM 1 GM in SODIUM CHLORIDE 50 ML IVPB SCH (11:14)
--- NOTE | 2016-11-01 12:19 | DS ---
Physical Exam: SUBJECTIVE: Patient seen and examined OBJECTIVE: Vital Signs Period Temp Pulse Resp BP Sys/Tomlinson Pulse Ox Last 24 Hr 98.1 F-99.0 F 85-90 18-20 128-145/71-77 95-95 PHYSICAL EXAM GENERAL: The patient is awake, alert, and fully oriented, in no acute distress. HEAD: Normal with no signs of trauma. EYES: PERRL, extraocular movements intact, sclera anicteric, conjunctiva clear. ENT: Ears normal, nares patent, oropharynx clear without exudates, moist mucous membranes. NECK: Trachea midline, full range of motion, supple. LUNGS: Breath sounds equal, clear to auscultation bilaterally, no wheezes, no crackles, no accessory muscle use. HEART: Regular rate and rhythm, S1, S2 without murmur, rub or gallop. ABDOMEN: Soft, nontender, nondistended, normoactive bowel sounds, no guarding, no rebound, no hepatosplenomegaly, no masses. EXTREMITIES: 2+ pulses, warm, well-perfused, no edema. NEUROLOGICAL: Cranial nerves II through XII grossly intact. Normal speech, gait not observed. PSYCH: Normal mood, normal affect. SKIN: Warm, dry, normal turgor, no rashes or lesions noted. LABS Laboratory Results - last 24 hr 11/01/16 11/01/16 07:10 07:10 WBC 9.0 RBC 2.73 L Hgb 8.3 L Hct 25.9 L MCV 94.8 MCHC 32.0 RDW 16.6 H Plt Count 395 MPV 7.7 Neutrophils % 65.0 Lymphocytes % 16.2 Monocytes % 12.5 H Eosinophils % 4.2 Basophils % 2.1 H Sodium 143 Potassium 4.7 Chloride 105 Carbon Dioxide 25 Anion Gap 13 BUN 16 Creatinine 1.2 Creat Clearance w eGFR 59.86 Random Glucose 89 Calcium 8.8 Phosphorus 4.3 Magnesium 2.0 Total Bilirubin 0.2 D AST 17 D ALT 21 Alkaline Phosphatase 63 Total Protein 5.6 L Albumin 2.3 L HOSPITAL COURSE: Date of Admission:10/28/16 Date of Discharge: 11/01/16 Patient is a 71 year-old male who resides at [facility]. He has a significant past medical history of TURP, HTN, HLD, CAD, nephrostomy tube of left kidney, thyroid disease s/p thyroidectomy and lung CA s/p lobectomy. He presented to the ED on 10/28/2016 with fever and chills. Met SIRS criteria on admission: febrile 102F, tachycardia 120s, leukocytosis 19.2. He was given Meropenum, and ID was consulted. On 07/2016 he was admitted for septic shock secondary to a perforated viscous. At that time he was also found to be in renal failure and underwent a left percutanous nephrostomy for 1cm obstructing L UPJ calculus and L hydronephrosis. He was most recently @ [place] on 10/07/2016 for UTI and hematuria. During that admission, he underwent a nephrostogram and the report findings demonstrated an adequately positioned nephrostomy tube in the left renal pelvis. Numerous large stones were seen in the left kidney including a large stone in the proximal left ureter resulting in high grade stenosis. On 10/30/2016 he underwent a nephrostomy tube exchange in IR. He is scheduled to see his urologist Dr. Crocker @ [place] for follow up. Imaging: Chest Xray 10/28/2016: course lung findings, old rib trauma, questionable density on left upper lung field, possible early RUL infiltrate Renal Ultrasound 10/28/2016: right kidney unremarkable, multiple renal stones and 2 small cystss, no evidence of hydronephrosis, large stone 9x7mm Assessment/Plan: Sepsis likely secondary to Urosepsis Leukocytosis 19.2>7.2 - resolved UA with +3 blood, 1500 WBC, urine cloudy with sediment Urine culture with Kleb + ESBL, blood cultures pending organism Remained afebrile since 10/28/2016 Treated with Ertapenem x 5 days, discharged on PO levaquin x 7 days Acute on Chronic Kidney Disease Assessment/Plan: Bun/Creat 15/1.3, baseline 1.3 s/p left neprhostomy tube placement Discharged on long-term suppressive antiseptic therapy with methenamine Assessment/Plan: Left lung consolidation Chest Xray 10/28/2016: course lung findings, old rib trauma, questionable density on left upper lung field, possible early RUL infiltrate Encouraged to use incentive spirometer Oxygen 2.5 liters as needed which he uses at the facility On duonebs Left lung cancer s/p left Lobectomy Assessment/Plan: On continuous oxygen @2.5 liters home o2 dependent CAD s/p AR Assessment/Plan: On ASA and Plavix daily - ASA daily, Plavix MWF On Metoprolol 25mg daily EKG: NSR 93bpm, left axis deviation no significant change compared to prior study 09/2016 Hypertension Assessment/Plan: On Metoprolol 25mg Monitor BPs in the setting of sepsis Hematology: Anemia - chronic Assessment/Plan: Low hmg/hct - low stable since admission. asymptomatic Minutes to complete discharge: 35 Discharge Summary Reason For Visit: UTI, URETER CALCU Current Active Problems Calculi, ureter (Acute) DVT prophylaxis (Acute) HLD (hyperlipidemia) (Acute) History of lung cancer (Acute) History of nephrostomy (Acute) History of prostate cancer (Acute) Nephrolithiasis (Acute) Pneumonia (Acute) Renal calculus, left (Acute) Sepsis (Acute) Systemic inflammatory response syndrome (SIRS) (Acute) Thyroid disease (Acute) UTI (urinary tract infection) (Acute) UTI (urinary tract infection) due to urinary indwelling catheter (Acute) Condition: Guarded - Instructions Diet, Activity, Other Instructions: Two prescriptions have been sent to your pharmacy. One is for an antibiotic which you should take for 7 days. The other is a medication to help prevent further infection and you should take that medication twice daily, every day. You should follow up with your urologist or with you PCP in one week. Return to the emergency department for any new or worsening symptoms. Referrals: David Crocker I [Non Staff, Medical] - 1 Week Turner Vail MD [Staff Physician] - 1 Week Disposition: [facility] - Home Medications Comprehensive Discharge Medication List: Ambulatory Orders Tiotropium [place] [Spiriva] 1 inh PO DAILY 07/30/16 Albuterol Sulfate 0.5% [Ventolin 0.5% Nebulizing Soln. -] 1 amp NEB QIDR amp Mag Hydrox/Al Hydrox/Simeth [Mylanta Oral Suspension -] 30 ml PO Q6H PRN Acetaminophen [Tylenol .Regular Strength -] 650 mg PO Q6H PRN #0 tablet Albuterol 2.5/Ipratropium 0.5 [Duoneb -] 1 amp NEB Q6H PRN #0 amp 10/10/16 Atorvastatin Ca [Lipitor] 20 mg PO HS tablet 10/10/16 Clonazepam [Klonopin -] 1 mg PO BID #60 tablet MDD 2 10/10/16 Clopidogrel Bisulfate [Plavix -] 75 mg PO DAILY tablet 10/10/16 Docusate Sodium [Colace -] 300 mg PO HS capsule 10/10/16 Finasteride [Proscar -] 5 mg PO DAILY tablet 10/10/16 Metoprolol Succinate [Toprol XL -] 25 mg PO DAILY tab.sr.24h 10/10/16 Pantoprazole Sodium [Protonix -] 40 mg PO DAILY tablet.ec 10/10/16 Tamsulosin HCl [Flomax -] 0.4 mg PO BID cap.er.24h 10/10/16 Aspirin Coated [Ecotrin -] 81 mg PO DAILY tablet.ec 11/01/16 Levofloxacin [Levaquin] 500 mg PO DAILY #7 tablet 11/01/16 Methenamine [place] 500 mg PO BID #60 tablet 11/01/16 This patient is new to me today: No Emergency Visit: Yes ED Registration Date: 10/28/16 Care time: The patient presented to the Emergency Department on the above date and was hospitalized for further evaluation of their emergent condition. Critical Care patient: No - Discharge Referral Referred to [facility] Med P.C.: No
[2016-11-01 14:45] VITALS: PULSE 88; TEMP 97.8
== END 2016-11-01 17:32 | DRG 871 ==
LOC: JER 22:31 → JERBED 10-28 05:59 → J6S 10-28 08:55
PROVIDERS: ADMIT Internal Medicine; ATTEND Nurse Practitioner Acute Care
PROC: 0T25X0Z Change Drainage Device in Kidney, External Approach (ICD-10-PCS; principal; 2016-10-30)
PROC: BT12YZZ Fluoroscopy of Left Kidney using Other Contrast (ICD-10-PCS; 2016-10-30)
DX: A41.9 Sepsis, unspecified organism (principal); J18.9 Pneumonia, unspecified organism; N39.0 Urinary tract infection, site not specified; N99.521 Infection of incontinent external stoma of urinary tract; I25.10 Atherosclerotic heart disease of native coronary artery without angina pectoris; E78.5 Hyperlipidemia, unspecified; Z85.118 Personal history of other malignant neoplasm of bronchus and lung; I25.2 Old myocardial infarction; D64.9 Anemia, unspecified; Z99.81 Dependence on supplemental oxygen; I12.9 Hypertensive chronic kidney disease with stage 1 through stage 4 chronic kidney disease, or unspecified chronic kidney disease; N18.9 Chronic kidney disease, unspecified; N20.0 Calculus of kidney; Y83.8 Other surgical procedures as the cause of abnormal reaction of the patient, or of later complication, without mention of misadventure at the time of the procedure; Y82.8 Other medical devices associated with adverse incidents; Z87.891 Personal history of nicotine dependence
CPT/HCPCS: 36415; 50435; 71010-TC; 76775-TC; 80048; 80053; 81003; 81015; 83605; 83735; 84100; 85025; 87040; 87070; 87086; 87186; 87205; 93005; 93010; 94640; 97116-GP; 97162-PG; 99285-25; A4358; C1729; C1769; C1887

== ENCOUNTER 2017-09-21 10:37 | Day surgery (SDC) | payer OTHER ==
[2017-09-20 15:47] VITALS: BMI 26.9
[2017-09-21] MEDS ORDERED: PROPOFOL 20 ML ONE (11:11)
[2017-09-21 12:23] VITALS: TEMP 98.3
[2017-09-21 13:16] VITALS: BP 124/66; PULSE 74
--- NOTE | 2017-09-25 14:22 | PATH ---
Surgical Pathology Report Patient Name: NEDA CONN [facility]. Rec. #: [id number] /Age/Gender: 1945 (Age: 72) / M Account: [id number] Location: U-ENDOSCOPY Taken: 09/21/2017 Received: 09/21/2017 Reported: 09/25/2017 Physicians: Constantin Cervantes M.D. Specimen(s) Received BX ESOPHAGUS MASS Clinical History Preoperative diagnosis: Dysphagia, esophageal mass Postoperative diagnosis: Esophageal stricture, malignant appearance Final Diagnosis ESOPHAGUS, MASS, BIOPSY: SQUAMOUS CELL CARCINOMA, WELL TO MODERATELY DIFFERENTIATED, IN A BACKGROUND OF ACUTE INFLAMMATION AND FOCAL ULCERATION. Comment: Fungal (PAS) stain is pending and will be reported as an addendum. Findings relayed to Isauro from Dr. Corral's office. Electronically Signed Thais Calloway M.D. Addendum Reported: 09/27/2017 Addendum Diagnosis PAS special stain is negative for fungal organisms. Thais Calloway M.D. Gross Description Received in formalin, labeled "biopsy esophageal mass" are 6 lopez, irregular portions of soft tissue ranging from 0.1-0.4 cm. in greatest dimension. The specimens are submitted in toto in one cassette. /09/21/201709/21/2017
== END 2017-09-21 13:10 | disposition home or self-care (01) ==
LOC: JASU-ENDO 10:37
PROVIDERS: ATTEND Internal Medicine Gastroenterology
PROC: 0DC28ZZ Extirpation of Matter from Middle Esophagus, Via Natural or Artificial Opening Endoscopic (ICD-10-PCS; 2017-09-21)
PROC: 0DB28ZX Excision of Middle Esophagus, Via Natural or Artificial Opening Endoscopic, Diagnostic (ICD-10-PCS; principal; 2017-09-21 10:45)
DX: C15.4 Malignant neoplasm of middle third of esophagus (principal); K22.2 Esophageal obstruction; T18.128A Food in esophagus causing other injury, initial encounter; X58.XXXA Exposure to other specified factors, initial encounter; Y93.9 Activity, unspecified; Y92.9 Unspecified place or not applicable; Y99.9 Unspecified external cause status
CPT/HCPCS: 88312-TC

== ENCOUNTER 2018-05-08 09:02 | Day surgery (SDC) | payer OTHER ==
[2018-05-07 14:29] VITALS: BMI 29.0
[2018-05-08 10:50] VITALS: TEMP 97.7
[2018-05-08 11:25] VITALS: BP 128/70; PULSE 73
--- NOTE | 2018-05-10 13:09 | PATH ---
Cytology Non-Gynecological Report Patient Name: NEDA CONN [facility]. Rec. #: [id number] /Age/Gender: 1945 (Age: 73) / M Account: [id number] Location: U-ENDOSCOPY Taken: 05/08/2018 Received: 05/09/2018 Reported: 05/10/2018 Physicians: Sarah Torre M.D. Specimen(s) Received ESOPHAGEAL BRUSH Clinical History Esophageal candidiasis/esophageal cancer Final Diagnosis ESOPHAGEAL BRUSHING FOR CYTOLOGY: SATISFACTORY FOR EVALUATION. SQUAMOUS CELLS WITH REACTIVE CELLULAR CHANGES. TAVARES SPECIES. SCATTERED SQUAMOUS CELLS WITH REACTIVE CELLULAR CHANGES NOTED. RED BLOOD CELLS AND BACTERIA PRESENT. FUNGAL FORMS MORPHOLOGICALLY CONSISTENT WITH TAVARES SPECIES PRESENT. Electronically Signed Thais Calloway M.D. Gross Description Received in 95% alcohol is a brush. Also received is one (1) direct smear. An additional slide prepared and Pap stained.
--- NOTE | 2018-05-10 17:15 | PATH ---
Surgical Pathology Report Patient Name: NEDA CONN [facility]. Rec. #: [id number] /Age/Gender: 1945 (Age: 73) / M Account: [id number] Location: U-ENDOSCOPY Taken: 05/08/2018 Received: 05/08/2018 Reported: 05/10/2018 Physicians: Sarah Torre M.D. Specimen(s) Received A: BX ANTRUM B: BX DUODENUM POLYP C: BX 2ND PORTION DUODENUM D: BX DISTAL ESOPHAGUS SCHATZKI'S RING E: BX DISTAL ESOPHAGUS AT 35 CM F: BX MID ESOPHAGUS AT 30 CM G: BX PROXIMAL ESOPHAGUS AT 25 CM Clinical History Esophageal cancer status post chemotherapy and radiation Postoperative diagnosis: No obvious residual of esophageal cancer, duodenal polyp Final Diagnosis A. ANTRUM, BIOPSY: GASTRIC MUCOSA SHOWING CHRONIC GASTRITIS WITH INTESTINAL METAPLASIA. IMMUNOSTAIN IS NEGATIVE FOR H. PYLORI ORGANISMS. B. DUODENUM POLYP, BIOPSY: DUODENAL MUCOSA WITH LYMPHANGIECTASIA. COMMENT: IMMUNOSTAINS D2-40 AND CD31 HIGHLIGHT THE DILATED LYMPHATIC VESSEL LINING ENDOTHELIAL CELLS. D2-40 AND CD31 PERFORMED AT [place], [place] ([id number]) AND INTERPRETED AT [facility]. C. SECOND PORTION DUODENUM, BIOPSY: DUODENAL MUCOSA WITH CHRONIC DUODENITIS. NO HISTOLOGIC EVIDENCE OF CELIAC DISEASE. D. DISTAL ESOPHAGUS SCHATZKI'S RING, BIOPSY: ESOPHAGEAL MUCOSA WITH REFLUX ESOPHAGITIS. NEGATIVE FOR MALIGNANCY. PAS STAIN FAILED TO REVEAL FUNGAL HYPHAE. E. DISTAL ESOPHAGUS AT 35 CM, BIOPSY: ESOPHAGEAL MUCOSA WITH REFLUX ESOPHAGITIS, MILD. NEGATIVE FOR MALIGNANCY. PAS STAIN FAILED TO REVEAL FUNGAL HYPHAE. F. MID ESOPHAGUS AT 30 CM, BIOPSY: ESOPHAGEAL MUCOSA WITH FOCAL PARAKERATOSIS. NEGATIVE FOR MALIGNANCY. PAS STAIN IS POSITIVE FOR FUNGAL HYPHAE, MORPHOLOGICALLY CONSISTENT WITH TAVARES. G. PROXIMAL ESOPHAGUS AT 25 CM, BIOPSY: ESOPHAGEAL MUCOSA WITH FOCAL PARAKERATOSIS. NEGATIVE FOR MALIGNANCY. PAS STAIN FAILED TO REVEAL FUNGAL HYPHAE. Comment: Also see concurrent cytology report [id number]. Electronically Signed Henrique Montgomery M.D. Gross Description A. Received in formalin, labeled "biopsy antrum" are 2 lopez, irregular portions of soft tissue measuring 0.2 and 0.4 cm. in greatest dimension. The specimens are submitted in toto in one cassette. B. Received in formalin, labeled "polyp duodenum" are 2 lopez, irregular portions of soft tissue measuring 0.2 and 0.4 cm. in greatest dimension. The specimens are submitted in toto in one cassette. C. Received in formalin, labeled "biopsy duodenum second portion" are 5 lopez, irregular portions of soft tissue ranging from 0.1-0.3 cm. in greatest dimension. The specimens are submitted in toto in one cassette. D. Received in formalin, labeled "biopsy distal esophagus Schatzki's ring" are 4 lopez, irregular portions of soft tissue ranging from 0.3-0.4 cm. in greatest dimension. The specimens are submitted in toto in one cassette. E. Received in formalin, labeled "biopsy distal esophagus at 35 cm" are 2 lopez, irregular portions of soft tissue measuring 0.2 and 0.3 cm. in greatest dimension. The specimens are submitted in toto in one cassette. F. Received in formalin, labeled "biopsy mid esophagus at 30 cm" are 2 lopez, irregular portions of soft tissue averaging 0.2 cm. in greatest dimension. The specimens are submitted in toto in one cassette. G. Received in formalin, labeled "biopsy proximal esophagus at 25 cm" are 2 lopez, irregular portions of soft tissue measuring 0.2 and 0.3 cm. in greatest dimension. The specimens are submitted in toto in one cassette. 05/08/2018 [facility]05/08/2018
== END 2018-05-08 11:49 | disposition home or self-care (01) ==
LOC: JASU-ENDO 09:02
PROVIDERS: ATTEND Internal Medicine Gastroenterology
PROC: 0DB68ZX Excision of Stomach, Via Natural or Artificial Opening Endoscopic, Diagnostic (ICD-10-PCS; 2018-05-08)
PROC: 0DB28ZX Excision of Middle Esophagus, Via Natural or Artificial Opening Endoscopic, Diagnostic (ICD-10-PCS; 2018-05-08)
PROC: 0DB38ZX Excision of Lower Esophagus, Via Natural or Artificial Opening Endoscopic, Diagnostic (ICD-10-PCS; 2018-05-08)
PROC: 0DB48ZX Excision of Esophagogastric Junction, Via Natural or Artificial Opening Endoscopic, Diagnostic (ICD-10-PCS; 2018-05-08)
PROC: 0DB98ZX Excision of Duodenum, Via Natural or Artificial Opening Endoscopic, Diagnostic (ICD-10-PCS; principal; 2018-05-08 10:00)
DX: K29.80 Duodenitis without bleeding (principal); K21.0 Gastro-esophageal reflux disease with esophagitis; K29.50 Unspecified chronic gastritis without bleeding; K44.9 Diaphragmatic hernia without obstruction or gangrene; K22.2 Esophageal obstruction; K31.7 Polyp of stomach and duodenum; Z85.01 Personal history of malignant neoplasm of esophagus
CPT/HCPCS: 88104; 88305-TC; 88312-TC; 88342-TC

== ENCOUNTER 2019-02-17 15:23 | Emergency (ER) | payer OTHER ==
[2019-02-17 15:28] VITALS: TEMP 97.9; BMI 23.5
--- NOTE | 2019-02-17 15:38 | PDOC ---
History of Present Illness - General Chief Complaint: Lightheaded Stated Complaint: dehydration Time Seen by Provider: 02/17/19 15:25 History Source: Patient Exam Limitations: No Limitations - History of Present Illness Initial Comments: 02/17/19 15:33 This is a 73-year-old patient with history of hypertension, coronary disease, hyperlipidemia, thyroidectomy, lung cancer status post lobectomy, esophageal cancer currently under management of evaluation by [facility] sent in by his primary care physician, Dr. Vail, for dehydration. The patient has had poor oral intake secondary to his cancer. He currently does not have a PEG tube in at this time does not wish for one. Patient reports that often he gets dehydrated and lightheaded this occurs often. He reports that a month of year, he often gets 1 L normal saline fusions and is discharged. Patient denies any fevers or chills or chest pain or shortness of breath at this time. Patient does not wish for any workup here numerous department. He does not request be admitted. I have spoken to the patient's primary care physician, and agrees that this is what the patient wishes and desires. We'll give 1 L of normal saline fusion and have the patient be discharged home with family. Past History - Past Medical History Allergies/Adverse Reactions: Allergies Allergy/AdvReac Type Severity Reaction Status Date / Time No Known Allergies Allergy Verified 02/17/19 15:25 Home Medications: Ambulatory Orders Acetaminophen [Tylenol .Regular Strength -] 650 mg PO Q6H PRN #0 tablet Tamsulosin HCl [Flomax -] 0.4 mg PO BID cap.er.24h 10/10/16 Aspirin Coated [Ecotrin -] 81 mg PO DAILY tablet.ec 11/01/16 Carvedilol [Coreg] 25 mg PO DAILY 09/21/17 Nitroglycerin 0.4 mg SL PRN PRN 09/21/17 Albuterol Sulfate [Proair Hfa] 2 puff IH DAILY 05/08/18 Atorvastatin Ca [Lipitor] 20 mg PO HS 05/08/18 Fluticasone/Salmeterol [Advair 250-50 Diskus] 1 each IH BID 05/08/18 Ibuprofen [Advil -] 500 mg PO PRN PRN 05/08/18 Lansoprazole [Prevacid -] 15 mg PO DAILY 05/08/18 Tiotropium [place] [Spiriva Respimat] 1 puff IH DAILY PRN 05/08/18 clonazePAM [Klonopin -] 1 mg PO TID PRN MDD 2 05/08/18 Anemia: No Asthma: No Cancer: Yes (ESOPHAGUS) Cardiac Disorders: Yes (ASHD.FL 2006,CARDIAC ARRYHTHMIA) CVA: No COPD: Yes CHF: No Dementia: No Diabetes: No GI Disorders: Yes (BLEEDING GASTRIC ULCER) Disorders: Yes (BPH) HTN: Yes Hypercholesterolemia: Yes Liver Disease: No Seizures: No Thyroid Disease: Yes - Surgical History Abdominal Surgery: No Appendectomy: No Cardiac Surgery: No Cholecystectomy: No Lung Surgery: Yes Neurologic Surgery: No Orthopedic Surgery: No - Immunization History Td Vaccination: Yes (UNKNOWN) Immunization Up to Date: Yes - Suicide/Smoking/Psychosocial Hx Smoking Status: Yes Smoking History: Former smoker Years of Tobacco Use: 40 Have you smoked in the past 12 months: No Number of Cigarettes Smoked Daily: 12 If you are a former smoker, when did you quit?: 07/2016 Cigars Per Day: 0 Information on smoking cessation initiated: No 'Breaking Loose' booklet given: 02/17/12 Hx Alcohol Use: No Drug/Substance Use Hx: No Substance Use Type: None Hx Substance Use Treatment: No Review of Systems - Review of Systems Able to Perform ROS?: Yes Comments:: 02/17/19 15:33 GENERAL/CONSTITUTIONAL: [No fever or chills. No weakness. No weight change.] HEAD, EYES, EARS, NOSE AND THROAT: [No change in vision. No ear pain or discharge. No sore throat.] CARDIOVASCULAR: [No chest pain or shortness of breath.] RESPIRATORY: [No cough, wheezing, or hemoptysis.] GASTROINTESTINAL: [No nausea, vomiting, diarrhea or constipation. No rectal bleeding.] GENITOURINARY: [No dysuria, frequency, or change in urination.] MUSCULOSKELETAL: [No joint or muscle swelling or pain. No neck or back pain.] SKIN AND BREASTS: [No rash or easy bruising.] NEUROLOGIC: [No headache, vertigo, loss of consciousness, or loss of sensation. ] +lightheadedness PSYCHIATRIC: [No depression or anxiety.] ENDOCRINE: [No increased thirst. No abnormal weight change.] HEMATOLOGIC/LYMPHATIC: [No anemia, easy bleeding, or history of blood clots.] ALLERGIC/IMMUNOLOGIC: [No hives or skin allergy. No latex allergy.] *Physical Exam - Vital Signs Last Vital Signs Temp Pulse Resp BP Pulse Ox 97.9 F 95 H 20 106/61 94 L 02/17/19 15:25 02/17/19 15:25 02/17/19 15:25 02/17/19 15:25 02/17/19 15:25 - Physical Exam Comments: 02/17/19 15:34 GENERAL: Awake, alert, and fully oriented, in no acute distress HEAD: No signs of trauma EYES: EOMI, sclera anicteric, conjunctiva clear ENT: Auricles normal inspection, hearing grossly normal, nares patent, oropharynx clear without exudates. Dry mucous membranes NECK: Normal ROM, supple LUNGS: Breath sounds equal, clear to auscultation bilaterally. No wheezes, and no crackles HEART: Regular rate and rhythm, normal S1 and S2, no murmurs, rubs or gallops EXTREMITIES: Normal range of motion, no edema. No clubbing or cyanosis. No cords, erythema, or tenderness NEUROLOGICAL: Cranial nerves II through XII grossly intact. Normal speech, normal gait SKIN: Warm, Dry, normal turgor, no rashes or lesions noted. Medical Decision Making - Medical Decision Making 02/17/19 15:39 Vital Signs Temp Pulse Resp BP Pulse Ox 97.9 F 95 H 20 106/61 94 L 02/17/19 15:25 02/17/19 15:25 02/17/19 15:25 02/17/19 15:25 02/17/19 15:25 Given the patient's situation, I will respect the patient's wishes. I suspect the patient's lightheadedness is secondary to dehydration. We'll give 1 L of normal saline have the patient follow-up with the primary care physician. Patient will be discharged home with the family. I discussed the physical exam findings, ancillary test results and final diagnoses with the patient. I answered all of the patient's questions. The patient was satisfied with the care received and felt comfortable with the discharge plan and treatment plan. The patient will call their primary care physician within 24 hours to arrange follow-up and will return to the Emergency Department with any new, persistant or worsening symptoms. *DC/Admit/Observation/Transfer Diagnosis at time of Disposition: Dehydration - Discharge Dispostion Disposition: HOME Condition at time of disposition: Fair Decision to Admit order: No - Referrals Referrals: Turner Vail MD [Primary Care Provider] - - Patient Instructions Printed Discharge Instructions: DI for Dehydration -- Adult Additional Instructions: You have received 1 liter of normal saline. Please follow up with Dr. Vail. - Post Discharge Activity
[2019-02-17] MEDS: SODIUM CHLORIDE 1,000 ML IV STA ×2 (15:40→15:41)
[2019-02-17 16:59] VITALS: BP 109/64; PULSE 88
== END 2019-02-17 16:58 | disposition home or self-care (01) ==
LOC: FER 15:23
PROC: 3E0337Z Introduction of Electrolytic and Water Balance Substance into Peripheral Vein, Percutaneous Approach (ICD-10-PCS; principal; 2019-02-17)
DX: E86.0 Dehydration (principal); I10 Essential (primary) hypertension; E78.5 Hyperlipidemia, unspecified; E07.9 Disorder of thyroid, unspecified; Z85.118 Personal history of other malignant neoplasm of bronchus and lung; I25.10 Atherosclerotic heart disease of native coronary artery without angina pectoris; J44.9 Chronic obstructive pulmonary disease, unspecified; Z87.891 Personal history of nicotine dependence
CPT/HCPCS: 99282-25; J7030